=== PATIENT | male | born 1950 | race Caucasian/White ===

== ENCOUNTER 2018-10-26 05:11 | Inpatient (IN) | payer MEDICARE, BC ==
--- NOTE | 2018-10-25 23:08 | PREOPHP ---
DATE OF ADMISSION: 10/26/2018 The patient was originally seen in the office for evaluation of weakness in the upper extremities as well as the lower extremities with unstable gait. He was diagnosed with cervical quadriparesis, cervical myelopathy, cord compression. Patient has failed conservative management as an outpatient b asis. He is having worsening pain, worsening weakness. He is having difficulty with day to day acti vities. He is having difficulty with work, he wants something more definitive to be done. Surgical option was discussed with the patient in great detail. I spent approximately 1 hour going over the d etails of surgery with anterior as well as the posterior approach to cervical decompression. It is r ecommended for the patient to have a cervical 3 to cervical 6 laminectomy with possible fusion and po ssible instrumentation. The procedure was explained to the patient and family in great detail; spent approximately 45 minutes to 1 hour going over the details of the surgery, as well as the complications which include infectio n, bleeding, reoperation, permanent nerve damage, permanent cord injury, stroke complications associa rosalind with anesthesia including but not limited to stroke, heart attack and even . Patient unders tands and wishes to proceed with surgical intervention as soon as possible. PAST MEDICAL HISTORY: Per chart. PAST SURGICAL HISTORY: Per chart. SOCIAL HISTORY: Per chart. ALLERGIES: STATED IN THE CHART. FAMILY HISTORY: Unremarkable except the ones stated in the chart. REVIEW OF SYSTEMS: Additional 10-point review of systems conducted. Pertinent positives as stated i n HPI. Otherwise, unremarkable. Patient also denies any bladder or bowel dysfunction. PHYSICAL EXAMINATION: GENERAL: Awake, alert, oriented, follows commands. HEENT: Unremarkable. PULMONARY: No dyspnea, no tachypnea noted. CARDIOVASCULAR: No JVD, no pedal edema noted. ABDOMEN: Soft without guarding. NEUROLOGIC: He is awake, alert, oriented, follows commands. GCS 15 has weakness in the upper extrem ities, has weakness in the lower extremities upon ambulation. His gait is unstable. Balance is unst able. MRI of the cervical spine shows cervical 3 to cervical 6 severe stenosis, cord compression. IMPRESSION: Cervical cord compression, myelopathy and quadriparesis. RECOMMENDATIONS: To proceed with surgical intervention with cervical 3 to 6 laminectomy with possibl e fusion, possible instrumentation. The procedure was explained to the patient in great detail. Ris ks, benefits, complications were explained extensively. The patient understands without any further questions. He wants to proceed with the surgical intervention as soon as possible. Dictated By: SAIMA WORKMAN/PUJA Conf#: [id number] DID#: [id number]
[~2018-10-26] VITALS: Ht 213.4 cm; Wt 91.6 kg
[2018-10-26] VITALS (57 sets, daily range): BP systolic 101–157; BP diastolic 56–77; PULSE 18–98; RESP 11–30
[2018-10-26] MEDS ORDERED: LACTATED RINGER'S 1,000 ML IV SCH (06:30)
[2018-10-26] MEDS ORDERED: AMLO1CAP3 PO (06:52)
--- NOTE | 2018-10-26 06:52 | PREAC ---
Date/Time of Note Date/Time of Note DATE: 10/26/18 TIME: 06:47 Anesthesia Eval and Record Evaluation Time Pre-Procedure Interview DATE: 10/26/18 TIME: 06:47 Age 68 Sex male NPO: 8 hrs Preoperative diagnosis Cervical Quadriparesis and cervical Myopathy Planned procedure Posterior C3-C6 Laminectomy and Fusion Past Medical History Past Medical History: Includes Cardio: HTN, Dyslipidemia Endo: Other (Hyperuricemia) Neuro: Other (Cerical Quadroparesis, bilateral Weakness of upper extremities) Renal: CKD (elevated Creatinin other marcial stable) Surgery & Anesthesia Issues No known issue Meds Anticoagulation: No Beta Saranya within 24 hr: No Reason Beta Saranya not given: Pt. not on B-Saranya Current Medications Lactated Ringer's 1,000 ml @ 0 mls/hr Q0M IV ; Start 10/26/18 at 06:30 Meds reviewed: Yes Allergies Coded Allergies: No Known Allergy (Unverified , 10/26/18) Allergies Reviewed: Yes Labs/Studies Labs Reviewed: Reviewed by anesthesiologist test: N/A Pre-procedure Exam Last vitals Vital Signs Date Temp Pulse Resp B/P (MAP) Pulse Ox O2 O2 Flow FiO2 Time Delivery Rate 10/26/18 97.0 18 18 117/69 99 Room Air 06:02 (85) Airway: Adequate mouth opening, Adequate thyromental dist Mallampati: Mallampati III Teeth: Normal Lung: Normal Heart: Normal ASA Physical Status ASA physical status: 2 Emergency: None Planned Anesthetic General/MAC: ETT, A Line Pre-operative Attestations Prior to commencing anesthesia and surgery, the patient was re-evaluated, there was verification of: *The patient's identity *The results of appropriate recent lab work and preoperative vital signs *The above evaluation not changing prior to induction *Anesthetic plan, risk benefits, alternative and complications discussed with patient/family; questions answered; patient/family understands, accepts and wishes to proceed. HADLEY ZHANG MD Oct 26, 2018 06:52
[2018-10-26] MEDS ORDERED: FEBU40TA PO (06:53)
[2018-10-26] MEDS ORDERED: CRES20 PO (06:53)
[2018-10-26] MEDS ORDERED: POLYMYXIN/BACITRACIN 1L IRRIG ONE (06:54)
[2018-10-26] MEDS ORDERED: BUPR300T48 PO (06:54)
[2018-10-26] MEDS ORDERED: GELATIN SIZE 100 SPONGE ONE (06:54)
[2018-10-26] MEDS ORDERED: LIDOCAINE 1%/EPI 30 ML INJ ONE (06:54)
[2018-10-26] MEDS ORDERED: FAMO20TA18 PO (06:54)
[2018-10-26] MEDS ORDERED: THROMBIN 5000 UNIT (RECOTHROM) VIAL ONE (06:54)
[2018-10-26] MEDS ORDERED: CEFAZOLIN 1 GM INJ ONE (06:58)
[2018-10-26] MEDS ORDERED: ROCURONIUM 50 MG INJ ONE ×2 (06:58→08:13)
[2018-10-26] MEDS ORDERED: PROPOFOL 20 ML ONE (06:58)
[2018-10-26] MEDS ORDERED: DEXAMETHASONE 4 MG/ML 5 ML INJ ONE (06:59)
[2018-10-26] MEDS ORDERED: METOCLOPRAMIDE 10 MG INJ ONE (06:59)
[2018-10-26] MEDS ORDERED: ONDANSETRON 4 MG INJ ONE (06:59)
[2018-10-26] MEDS ORDERED: MIDAZOLAM 1 MG/ML 2 ML INJ ONE (06:59)
--- NOTE | 2018-10-26 07:21 | HPN ---
Date/Time of Note Date/Time of Note DATE: 10/26/18 TIME: 07:20 Interval H&P Admission Note Pt. seen H&P reviewed: No system changes SAIMA GLOD MD Oct 26, 2018 07:20
[2018-10-26] MEDS ORDERED: SURGIFOAM POWDER 1 GM KIT ONE (07:24)
[2018-10-26] MEDS ORDERED: DIPHENHYDRAMINE 50 MG INJ ONE (07:30)
[2018-10-26] MEDS ORDERED: SUGAMMADEX SODIUM 200 MG/2 ML VIAL IV ONE (09:08)
[2018-10-26] MEDS ORDERED: PHENYLephrine (100 MCG/ML) 10ML SYG ONE (09:12)
[2018-10-26] MEDS ORDERED: EPHEDrine 25 MG/5 ML SYG ONE (09:12)
[2018-10-26] MEDS ORDERED: EPHEDrine 25 MG/5 ML SYG IV PRN ×2 (09:30→10:00)
[2018-10-26] MEDS ORDERED: MEPERIDINE 25 MG INJ IV PRN ×2 (09:30→10:00)
[2018-10-26] MEDS ORDERED: FENTAnyl 50 MCG/ML VIAL IV PRN ×6 (09:30→10:00)
[2018-10-26] MEDS ORDERED: LABETALOL HCL 20MG INJ IV PRN ×2 (09:30→10:00)
[2018-10-26] MEDS ORDERED: METOCLOPRAMIDE 10 MG INJ IV PRN ×2 (09:30→10:00)
[2018-10-26] MEDS ORDERED: HYDROmorphONE 1 MG/5 ML IV SYRINGE IV PRN ×3 (09:30)
[2018-10-26] MEDS ORDERED: ONDANSETRON 4 MG INJ IV PRN ×3 (09:30→10:00)
[2018-10-26] MEDS ORDERED: OXYCODONE/ACETAMINOPHEN (5/325) TAB PO PRN ×2 (09:30)
[2018-10-26] MEDS ORDERED: hydrALAzine 20 MG INJ IV PRN ×2 (09:30→10:00)
[2018-10-26] MEDS ORDERED: DIPHENHYDRAMINE 50 MG INJ IV PRN ×2 (09:30→10:00)
--- NOTE | 2018-10-26 09:38 | OPR ---
Date/Time of Note Date/Time of Note DATE: 10/26/18 TIME: 09:34 Operative Report Procedure Date: Oct 26, 2018 Preoperative Diagnosis CERVICAL STENOSIS WITH CERVICAL QUADRIPARESIS ,AND MYELOPATHY, LEFT C4,5,6 RADICULOPATHY Postoperative Diagnosis SAME Operation/Procedure Performed CERVICAL THREE TO SEVEN LAMINECTOMY WITH LEFT FOUR FIVE FORAMINOTOMY Surgeon see signature line Rigging Up Man FIORELLA FIGUEROA MD Second Rigging Up Man: ARNOLDO AKERS PA-C Anesthesia Type: general Estimated Blood Loss: 50 - 100 ml's Transfusion none Specimen LAMINA Grafts/Implants none Complications none Pt Condition Post Procedure: stable Disposition: PACU Procedure Description SEE DICTATION SAIMA GOLD MD Oct 26, 2018 09:38
[2018-10-26] MEDS ORDERED: LABETALOL HCL 20MG INJ ONE (09:47)
[2018-10-26] MEDS ORDERED: HYDROmorphONE 0.5 MG/0.5 ML SYG IV PRN ×3 (10:00)
[2018-10-26] MEDS ORDERED: morphine 4 MG/ML VIAL IV PRN (10:00)
[2018-10-26] MEDS ORDERED: niCARdipine 50 MG in SOD CHLORIDE 0.9% 480 ML IV SCH (10:00)
--- NOTE | 2018-10-26 10:23 | PAC ---
Date/Time of Note Date/Time of Note DATE: 10/26/18 TIME: 10:23 Post-Anesthesia Notes Post-Anesthesia Note Last documented vital signs Vital Signs Date Temp Pulse Resp B/P (MAP) Pulse Ox O2 O2 Flow FiO2 Time Delivery Rate 10/26/18 97.0 18 18 117/69 99 Room Air 10:22 (85) Activity: WNL Respiratory function: WNL Cardiovascular function: WNL Mental status: Baseline Pain reasonably controlled: Yes Hydration appropriate: Yes Nausea/Vomiting absent: Yes HADLEY ZHANG MD Oct 26, 2018 10:23
[2018-10-26] MEDS: DEXTROSE 5%-LR 1,000 ML IV SCH ×2 (11:04→17:49)
--- NOTE | 2018-10-26 11:04 | CONS ---
Assessment/Plan Assessment/Plan Assessment/Plan (Daily) Med consult dict Post op cx spine surgery with hx HBP, Gout and Elev chol meds resumed except for yandy inhibitor given transient hypotension periop. Will follow Consultation Date/Type/Reason Admit Date/Time Oct 26, 2018 at 05:11 Date/Time of Note DATE: 10/26/18 TIME: 11:02 Past Medical History Home Meds Reported Medications Bupropion Hcl* (Wellbutrin XL*) 300 Mg Tab.sr.24h, 300 MG PO DAILY, TAB.SA 10/26/18 Famotidine* (Famotidine*) 20 Mg Tablet, 20 MG PO BID, #60 TAB 10/26/18 Febuxostat* (Uloric*) 40 Mg Tablet, 40 MG PO DAILY, TAB 10/26/18 Rosuvastatin Calcium* (Crestor*) 20 Mg Tablet, 20 MG PO QHS, #30 TAB 10/26/18 Amlodipine Besylate/Benazepril (Lotrel 5-40 mg Capsule) 1 Each Capsule, 1 EACH PO QPM, CAP 10/26/18 Medications Current Medications Lactated Ringer's 1,000 ml @ 0 mls/hr Q0M IV Last administered on 10/26/18at 06:56; Admin Dose 0 MLS/HR; Start 10/26/18 at 06:30 Hydromorphone HCl (Dilaudid) 0.2 mg ICU RECOVERY PRN IV MILD PAIN LEVEL 1-3; S tart 10/26/18 at 10:00; Stop 10/26/18 at 15:00 Hydromorphone HCl (Dilaudid) 0.4 mg ICU RECOVERY PRN IV MODERATE PAIN LEVEL 4-6; Start 10/26/18 at 10:00; Stop 10/26/18 at 15:00 Hydromorphone HCl (Dilaudid) 0.6 mg ICU RECOVERY PRN IV SEVERE PAIN LEVEL 7-10; Start 10/26/18 at 10:00; Stop 10/26/18 at 15:00 Fentanyl (Sublimaze) 25 mcg ICU RECOVERY PRN IV MILD PAIN LEVEL 1-3; Start 10/26/18 at 10:00; Stop 10/26/18 at 15:00 Fentanyl (Sublimaze) 50 mcg ICU RECOVERY PRN IV MODERATE PAIN LEVEL 4-6; Start 10/26/18 at 10:00; Stop 10/26/18 at 15:00 Fentanyl (Sublimaze) 75 mcg ICU RECOVERY PRN IV SEVERE PAIN LEVEL 7-10; Start 10/26/18 at 10:00; Stop 10/26/18 at 15:00 Ondansetron HCl (Zofran Inj) 4 mg ICU RECOVERY PRN IV NAUSEA/VOMITING; Start 10/26/18 at 10:00; Stop 10/26/18 at 15:00 Metoclopramide HCl (Reglan) 10 mg ICU RECOVERY PRN IV NAUSEA AND/OR VOMITING; Start 10/26/18 at 10:00; Stop 10/26/18 at 15:00 Labetalol HCl (Labetalol) 5 mg ICU RECOVERY PRN IV HIGH BLOOD PRESSURE; Start 10/26/18 at 10:00; Stop 10/26/18 at 15:00 Hydralazine HCl (Apresoline) 5 mg ICU RECOVERY PRN IV HIGH BLOOD PRESSURE; Start 10/26/18 at 10:00; Stop 10/26/18 at 15:00 Meperidine HCl (Demerol) 25 mg ICU RECOVERY PRN IV .RIGORS; Start 10/26/18 at 10:00; Stop 10/26/18 at 15:00 Diphenhydramine HCl (Benadryl) 25 mg ICU RECOVERY PRN IV .PRURITUS; Start 10/26/18 at 10:00; Stop 10/26/18 at 15:00 Dextrose/Lactated Ringer's 1,000 ml @ 125 mls/hr Q8H IV ; Start 10/26/18 at 10:00 Dexamethasone (Decadron) 4 mg Q6 IV ; Start 10/26/18 at 12:00; Stop 10/27/18 at 12:00 Cefazolin Sodium 50 ml @ 100 mls/hr Q8 IVPB ; Start 10/26/18 at 14:00; Stop 10/28/18 at 14:00 Nicardipine HCl 50 mg/Sodium Chloride 500 ml @ 50 mls/hr TITRATE IV ; Start 10/26/18 at 10:00 Morphine Sulfate (morphine) 3 mg Q3H PRN IV SEVERE PAIN LEVEL 7-10; Start 10/26/18 at 10:00 Ondansetron HCl (Zofran Inj) 4 mg Q6H PRN IV NAUSEA AND/OR VOMITING; Start 10/26/18 at 10:00 Acetaminophen/ Hydrocodone Bitart ([place] (7.5-325)) 1 tab Q4H PRN PO MODERATE PAIN LEVEL 4-6; Start 10/26/18 at 10:30 Bupropion HCl (Wellbutrin Xl) 300 mg DAILY PO ; Start 10/27/18 at 09:00 Famotidine (Pepcid) 20 mg BID PO ; Start 10/26/18 at 21:00 Febuxostat (Uloric) 40 mg DAILY PO ; Start 10/27/18 at 09:00 Miscellaneous Information 1 each QPM PO ; Start 10/26/18 at 21:00; Status UNV Miscellaneous Information 20 mg QHS PO ; Start 10/26/18 at 21:00; Status UNV Allergies: Coded Allergies: No Known Allergy (Unverified , 10/26/18) Social History Smoking Status: Never smoker Exam/Review of Systems Exam Vitals Vital Signs Date Temp Pulse Resp B/P (MAP) Pulse Ox O2 O2 Flow FiO2 Time Delivery Rate 10/26/18 98.4 10:14 10/26/18 18 18 117/69 99 Room Air 06:02 (85) Medications Medication Current Medications Lactated Ringer's 1,000 ml @ 0 mls/hr Q0M IV Last administered on 10/26/18at 06:56; Admin Dose 0 MLS/HR; Start 10/26/18 at 06:30 Hydromorphone HCl (Dilaudid) 0.2 mg ICU RECOVERY PRN IV MILD PAIN LEVEL 1-3; Start 10/26/18 at 10:00; Stop 10/26/18 at 15:00 Hydromorphone HCl (Dilaudid) 0.4 mg ICU RECOVERY PRN IV MODERATE PAIN LEVEL 4-6; Start 10/26/18 at 10:00; Stop 10/26/18 at 15:00 Hydromorphone HCl (Dilaudid) 0.6 mg ICU RECOVERY PRN IV SEVERE PAIN LEVEL 7-10; Start 10/26/18 at 10:00; Stop 10/26/18 at 15:00 Fentanyl (Sublimaze) 25 mcg ICU RECOVERY PRN IV MILD PAIN LEVEL 1-3; Start 10/26/18 at 10:00; Stop 10/26/18 at 15:00 Fentanyl (Sublimaze) 50 mcg ICU RECOVERY PRN IV MODERATE PAIN LEVEL 4-6; Start 10/26/18 at 10:00; Stop 10/26/18 at 15:00 Fentanyl (Sublimaze) 75 mcg ICU RECOVERY PRN IV SEVERE PAIN LEVEL 7-10; Start 10/26/18 at 10:00; Stop 10/26/18 at 15:00 Ondansetron HCl (Zofran Inj) 4 mg ICU RECOVERY PRN IV NAUSEA/VOMITING; Start 10/26/18 at 10:00; Stop 10/26/18 at 15:00 Metoclopramide HCl (Reglan) 10 mg ICU RECOVERY PRN IV NAUSEA AND/OR VOMITING; Start 10/26/18 at 10:00; Stop 10/26/18 at 15:00 Labetalol HCl (Labetalol) 5 mg ICU RECOVERY PRN IV HIGH BLOOD PRESSURE; Start 10/26/18 at 10:00; Stop 10/26/18 at 15:00 Hydralazine HCl (Apresoline) 5 mg ICU RECOVERY PRN IV HIGH BLOOD PRESSURE; Start 10/26/18 at 10:00; Stop 10/26/18 at 15:00 Meperidine HCl (Demerol) 25 mg ICU RECOVERY PRN IV .RIGORS; Start 10/26/18 at 10:00; Stop 10/26/18 at 15:00 Diphenhydramine HCl (Benadryl) 25 mg ICU RECOVERY PRN IV .PRURITUS; Start at 10:00; Stop 10/26/18 at 15:00 Dextrose/Lactated Ringer's 1,000 ml @ 125 mls/hr Q8H IV ; Start 10/26/18 at 10:00 Dexamethasone (Decadron) 4 mg Q6 IV ; Start 10/26/18 at 12:00; Stop 10/27/18 at 12:00 Cefazolin Sodium 50 ml @ 100 mls/hr Q8 IVPB ; Start 10/26/18 at 14:00; Stop 10/28/18 at 14:00 Nicardipine HCl 50 mg/Sodium Chloride 500 ml @ 50 mls/hr TITRATE IV ; Start 10/26/18 at 10:00 Morphine Sulfate (morphine) 3 mg Q3H PRN IV SEVERE PAIN LEVEL 7-10; Start 10/26/18 at 10:00 Ondansetron HCl (Zofran Inj) 4 mg Q6H PRN IV NAUSEA AND/OR VOMITING; Start 10/26/18 at 10:00 Acetaminophen/ Hydrocodone Bitart ([place] (7.5-325)) 1 tab Q4H PRN PO MODERATE PAIN LEVEL 4-6; Start 10/26/18 at 10:30 Bupropion HCl (Wellbutrin Xl) 300 mg DAILY PO ; Start 10/27/18 at 09:00 Famotidine (Pepcid) 20 mg BID PO ; Start 10/26/18 at 21:00 Febuxostat (Uloric) 40 mg DAILY PO ; Start 10/27/18 at 09:00 Miscellaneous Information 1 each QPM PO ; Start 10/26/18 at 21:00; Status UNV Miscellaneous Information 20 mg QHS PO ; Start 10/26/18 at 21:00; Status UNV VANDANA KESSLER MD Oct 26, 2018 11:04
--- NOTE | 2018-10-26 11:34 | CONS ---
DATE OF ADMISSION: 10/26/2018 DATE OF CONSULTATION: 10/26/2018 TYPE OF CONSULTATION: SURGERY Thank you very much for allowing me to evaluate this 68-year-old male who just underwent cervical spi ne surgery. HISTORICAL EVENTS: As you well know, this patient has had progressive weakness and numbness involvin g his upper extremities and diffuse numbness and tingling that have been problematic for several reina hs. He has also noted some difficulty with balance and ultimately obtained an MRI of the cervical sp ine that revealed severe C5-C6 stenosis with diffuse disk injury thought optimal for surgical interve ntion. It is because of the latter that he underwent surgery today. Reviewing his operative record revealed transient hypotension. He presently is comfortable noting modest neck pain, but without cou gh, wheezing, shortness of breath, nausea, vomiting, abdominal or chest pain. PAST MEDICAL HISTORY: Includes: 1. Hypertension. 2. Gout. 3. Hyperlipidemia. 4. Esophagitis. 5. History of Achilles tendon repair (left). 6. Right elbow surgery. 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 He does smoke cigars. Does dri nk alcohol. FAMILY HISTORY: Positive for diabetes, heart disease, renal cancer and hypertension, hypogonadism us ing Depo testosterone. MEDICATIONS: Prior to admission: 1. Crestor 20 mg per day. 2. Amlodipine/benazepril 5/40. 3. Uloric 40 mg per day. PHYSICAL EXAMINATION: GENERAL: Comfortable appearing male in no acute distress. VITAL SIGNS: BP 109/72, pulse was 60, respirations were 18. He was afebrile. NECK: Soft collar in place. LUNGS: Clear. HEART: Rhythm regular, no murmur. No third or fourth sound. ABDOMEN: Nontender. Liver and spleen were not palpable. No mass or tenderness was noted. EXTREMITIES: No edema. Calves nontender. NEUROLOGIC: No lateralizing motor weakness. He was able to move his feet bilaterally and hands. IMPRESSION: 1. Stable postoperative cervical laminectomy. 2. History of hypertension. BP meds will be resumed. 3. Hyperlipidemia, to continue statin. 4. History of gout to continue Uloric. PLAN: We will follow daily and observe for signs and symptoms of thromboembolic disease. Dictated By: VANDANA YOU/PUJA Conf#: [id number] DID#: [id number] CC: SAIMA GOLD MD; FIORELLA FIGUEROA MD;*End*
[2018-10-26] MEDS: DEXAMETHASONE 4 MG/ML 1 ML INJ IV SCH ×3 (12:50→23:43)
[2018-10-26] MEDS: CEFAZOLIN 1 GM/50 ML (PMX) 50 ML IVPB SCH ×2 (14:35→21:55)
[2018-10-26] MEDS: HYDROCODONE/APAP (7.5/325) TAB PO PRN (16:26)
[2018-10-26] MEDS ORDERED: LISINOPRIL 20 MG TAB PO SCH (17:00)
[2018-10-26] MEDS: AMLODIPINE 5 MG TAB PO SCH (17:15)
[2018-10-26] MEDS: HYDROmorphONE 1 MG/ML SYG IV PRN ×2 (17:45→21:56)
[2018-10-26] MEDS: BENAZEPRIL 40 MG TAB PO SCH (18:29)
[2018-10-26] MEDS: FAMOTIDINE 20 MG TAB PO SCH (21:00)
[2018-10-26] MEDS ORDERED: NON-FORMULARY/PATIENT OWN MED (Amlodipine Besylate/Benazepril (Lotrel 5-40 mg Capsule) 1 E PO SCH (21:00)
[2018-10-26] MEDS ORDERED: AMLODIPINE 5 MG TAB PO SCH (21:00)
[2018-10-26] MEDS: ATORVASTATIN 40 MG TAB PO SCH (21:00)
[2018-10-27] VITALS (17 sets, daily range): BP systolic 101–125; BP diastolic 49–72; PULSE 80–97; RESP 11–30
[2018-10-27] MEDS: HYDROmorphONE 1 MG/ML SYG IV PRN ×4 (01:45→17:56)
[2018-10-27] MEDS: DEXTROSE 5%-LR 1,000 ML IV SCH ×3 (01:45→17:57)
[2018-10-27] MEDS: DEXAMETHASONE 4 MG/ML 1 ML INJ IV SCH ×3 (06:02→20:52)
[2018-10-27] MEDS: CEFAZOLIN 1 GM/50 ML (PMX) 50 ML IVPB SCH ×3 (06:03→22:08)
--- NOTE | 2018-10-27 08:17 | CONS ---
Assessment/Plan Assessment/Plan Assessment/Plan (Daily) 1. Post op cx spine surgery, with inc dysesthesia left arm 2. CHO has inc, related to Decadron, rev with pt, will cover with ac sq insulin 3. Renal fx has improved 4. BP is controlled 5. Elev wbc likely from steroids, ua and cult ordered 6. Can transfer to ortho floor after seen by NS and ortho. Consultation Date/Type/Reason Admit Date/Time Oct 26, 2018 at 05:11 Initial Consult Date Date/Time of Note DATE: 10/27/18 TIME: 08:13 Detailed Summary ENT: other (uvula is hursts, mod neck discomfort) Respiratory: No cough, No shortness of breath Cardiovascular: No chest pain Gastrointestinal: no complaints Genitourinary: other (mendoza in place) Neurologic: other (left hand is burning) Exam/Review of Systems Exam Vitals Vital Signs Date Temp Pulse Resp B/P (MAP) Pulse Ox O2 O2 Flow FiO2 Time Delivery Rate 10/27/18 90 26 115/49 94 Room Air 06:00 (71) 10/27/18 98.9 04:00 10/26/18 6.0 12:00 Intake and Output 10/26/18 10/26/18 10/27/18 1515:00 23:00 07:00 IntakeIntake Total 3650 ml 1200 ml 750 ml OutputOutput Total 770 ml 505 ml 475 ml BalanceBalance 2880 ml 695 ml 275 ml Neck: jvd, other (collar in place, left side uvula skin is denuded) Respiratory: clear to auscultation Cardiovascular: regular rate and rhythm Gastrointestinal: soft Extremities: No calf tenderness, No edema, No pitting pedal edema Results Result Diagram: 10/27/18 0500 10/27/18 0500 Results 24hrs Laboratory Tests Test 10/26/18 14:21 10/27/18 05:00 10/27/18 05:19 White Blood Count 9.0 16.0 #H Red Blood Count 4.29 L 4.04 L Hemoglobin 12.9 L 12.5 L Hematocrit 38.2 L 35.7 L Mean Corpuscular Volume 89.0 88.4 Mean Corpuscular Hemoglobin 30.1 30.9 Mean Corpuscular 33.8 35.0 Hemoglobin Concent Red Cell Distribution Width 12.3 12.0 Platelet Count 195 200 Mean Platelet Volume 10.2 10.4 Immature Granulocytes % 0.400 0.400 Neutrophils % 93.9 H 93.2 H Lymphocytes % 5.0 L 4.0 L Monocytes % 0.6 2.3 Eosinophils % 0.0 0.0 Basophils % 0.1 0.1 Nucleated Red Blood Cells % 0.0 0.0 Immature Granulocytes # 0.040 H 0.070 H Neutrophils # 8.4 H 14.9 H Lymphocytes # 0.5 L 0.6 L Monocytes # 0.1 L 0.4 Eosinophils # 0.0 0.0 Basophils # 0.0 0.0 Nucleated Red Blood Cells # 0.0 0.0 Sodium Level 135 136 Potassium Level 4.8 4.7 Chloride Level 104 105 Carbon Dioxide Level 23 24 Anion Gap 8 7 Blood Urea Nitrogen 24 H 21 H Creatinine 1.47 H 1.18 Est Glomerular Filtrat 48 L > 60 Rate mL/min Glucose Level 224 H 193 Calcium Level 8.3 L 8.1 L Hemoglobin A1c 5.5 Phosphorus Level 3.6 Magnesium Level 1.7 Lab Scanned Report REFERENCE LAB Medications Medication Current Medications Lactated Ringer's 1,000 ml @ 0 mls/hr Q0M IV Last administered on 10/26/18at 06:56; Admin Dose 0 MLS/HR; Start 10/26/18 at 06:30 Dextrose/Lactated Ringer's 1,000 ml @ 125 mls/hr Q8H IV Last administered on 10/27/18at 01:45; Admin Dose 125 MLS/HR; Start 10/26/18 at 10:00 Dexamethasone (Decadron) 4 mg Q6 IV Last administered on 10/27/18at 06:02; Admin Dose 4 MG; Start 10/26/18 at 12:00; Stop 10/27/18 at 12:00 Cefazolin Sodium 50 ml @ 100 mls/hr Q8 IVPB Last administered on 10/27/18at 06:03; Admin Dose 100 MLS/HR; Start 10/26/18 at 14:00; Stop 10/28/18 at 14:00 Nicardipine HCl 50 mg/Sodium Chloride 500 ml @ 50 mls/hr TITRATE IV ; Start 10/26/18 at 10:00 Ondansetron HCl (Zofran Inj) 4 mg Q6H PRN IV NAUSEA AND/OR VOMITING; Start 10/26/18 at 10:00 Acetaminophen/ Hydrocodone Bitart ([place] (7.5-325)) 1 tab Q4H PRN PO MODERATE PAIN LEVEL 4-6 Last administered on 10/26/18at 16:26; Admin Dose 1 TAB; Start 10/26/18 at 10:30 Bupropion HCl (Wellbutrin Xl) 300 mg DAILY PO ; Start 10/27/18 at 09:00 Famotidine (Pepcid) 20 mg BID PO ; Start 10/26/18 at 21:00 Febuxostat (Uloric) 40 mg DAILY PO ; Start 10/27/18 at 09:00 Atorvastatin Calcium (Lipitor) 40 mg DAILY@21 PO ; Start 10/26/18 at 21:00 Amlodipine Besylate (Norvasc) 5 mg DAILY PO Last administered on 10/26/18at 17:15; Admin Dose 5 MG; Start 10/26/18 at 17:00 Benazepril HCl (Lotensin) 40 mg DAILY PO Last administered on 10/26/18at 18:29; Admin Dose 40 MG; Start 10/26/18 at 17:00 Hydromorphone HCl (Dilaudid) 1 mg Q3H PRN IV MOD TO SEVERE PAIN Last administered on 10/27/18at 07:57; Admin Dose 1 MG; Start 10/26/18 at 18:00 Miscellaneous Information (* Miscellaneous Pharmacy Order) Discontinue current oral sulfonylur... ONCE ONCE XX ; Start 10/27/18 at 08:30; Stop 10/27/18 at 08:31; Status UNV Diagnostic Test (Pha) (Accu-Chek) 1 ea XX ; Start 10/28/18 at 02:00; Status UNV Miscellaneous Information (* Miscellaneous Pharmacy Order) HYPOGLYCEMIA PROTOCOL w... ONCE ONCE XX ; Start 10/27/18 at 08:30; Stop 10/27/18 at 08:31; Status UNV Insulin Aspart (Novolog Insulin Pen) NOVOLOG *MILD* ALGORITHM AC MEALS SC ; Start 10/27/18 at 11:00; Status UNV Miscellaneous Information (* Miscellaneous Pharmacy Order) Discontinue all previ... ONCE ONCE XX ; Start 10/27/18 at 08:30; Stop 10/27/18 at 08:31; Status UNV Magnesium Sulfate 50 ml @ 25 mls/hr ONCE ONCE IVPB ; Start 10/27/18 at 08:30; Stop 10/27/18 at 10:29 VANDANA KESSLER MD Oct 27, 2018 08:17
[2018-10-27] MEDS ORDERED: GLUCOSE GEL 15 GRAM TUBE PO PRN ×2 (08:30)
[2018-10-27] MEDS ORDERED: GLUCOSE GEL 15 GRAM TUBE BUCCAL PRN (08:30)
[2018-10-27] MEDS ORDERED: GLUCAGON 1 MG INJ IM PRN (08:30)
[2018-10-27] MEDS ORDERED: DEXTROSE 50% 50 ML SYRINGE IV PRN ×2 (08:30)
[2018-10-27] MEDS ORDERED: MAGNESIUM SULFATE 2 GM/50 ML 50 ML IVPB ONE (08:30)
[2018-10-27] MEDS: FAMOTIDINE 20 MG TAB PO SCH ×2 (09:16→20:52)
[2018-10-27] MEDS: AMLODIPINE 5 MG TAB PO SCH (09:17)
[2018-10-27] MEDS: FEBUXOSTAT 40 MG TABLET PO SCH (09:17)
[2018-10-27] MEDS: BUPROPION (XL) 150 MG TAB PO SCH (09:17)
[2018-10-27] MEDS: BENAZEPRIL 40 MG TAB PO SCH (09:17)
[2018-10-27] MEDS: INSULIN ASPART [NOVOLOG] 3 ML PEN SC SCH ×2 (12:42→17:25)
[2018-10-27] MEDS ORDERED: PANTOPRAZOLE 40 MG INJ IV SCH (15:30)
[2018-10-27] MEDS ORDERED: METOCLOPRAMIDE 10 MG INJ IV SCH (16:00)
[2018-10-27] MEDS: HYDROCODONE/APAP (7.5/325) TAB PO PRN (20:54)
[2018-10-27] MEDS: ATORVASTATIN 40 MG TAB PO SCH (21:00)
[2018-10-28] MEDS: DEXAMETHASONE 4 MG/ML 1 ML INJ IV SCH ×4 (01:03→17:28)
[2018-10-28] MEDS: ZOLPIDEM 5 MG TAB PO PRN ×2 (01:09→23:31)
[2018-10-28] MEDS: DEXTROSE 5%-LR 1,000 ML IV SCH (01:13)
[2018-10-28 01:31] VITALS: BP 118/58; PULSE 83; RESP 18
[2018-10-28] MEDS: ACCU-CHEK XX SCH (02:23)
[2018-10-28] MEDS: CEFAZOLIN 1 GM/50 ML (PMX) 50 ML IVPB SCH ×2 (05:39→14:18)
[2018-10-28] MEDS: HYDROCODONE/APAP (7.5/325) TAB PO PRN ×3 (05:53→17:27)
[2018-10-28 07:49] VITALS: BP 129/65; PULSE 78; RESP 20
[2018-10-28] MEDS: FEBUXOSTAT 40 MG TABLET PO SCH (08:24)
[2018-10-28] MEDS: BUPROPION (XL) 150 MG TAB PO SCH (08:24)
[2018-10-28] MEDS: AMLODIPINE 5 MG TAB PO SCH (08:25)
[2018-10-28] MEDS: FAMOTIDINE 20 MG TAB PO SCH ×2 (08:25→20:50)
[2018-10-28] MEDS: BENAZEPRIL 40 MG TAB PO SCH (08:25)
--- NOTE | 2018-10-28 08:29 | CONS ---
Assessment/Plan Assessment/Plan Assessment/Plan (Daily) 1. Post op cx spine surgery with post op right arm weakness and dysesthesia 2. 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 CHO still sl inc, will inc insulin to q6 4. BP controlled Consultation Date/Type/Reason Admit Date/Time Oct 26, 2018 at 05:11 Initial Consult Date Date/Time of Note DATE: 10/28/18 TIME: 08:26 Detailed Summary Respiratory: No cough, No pleuritic pain, No shortness of breath Cardiovascular: No chest pain, No orthopenea Gastrointestinal: other (mild hiccups); No pain, No vomiting Genitourinary: other (mendoza in place) Musculoskeletal: other (neck pain mild-mod) Neurologic: other (right arm weaker then left and tingling in feet some pain left arm ) Exam/Review of Systems Exam Vitals Vital Signs Date Temp Pulse Resp B/P (MAP) Pulse Ox O2 O2 Flow FiO2 Time Delivery Rate 10/28/18 98.4 78 20 129/65 92 Room Air 07:49 (86) 10/28/18 2.0 01:31 Intake and Output 10/27/18 10/27/18 10/28/18 1515:00 23:00 07:00 IntakeIntake Total 50 ml 50 ml 1650 ml OutputOutput Total 280 ml 65 ml 50 ml BalanceBalance -230 ml -15 ml 1600 ml Neck: No jvd Respiratory: clear to auscultation, crackles/rales Gastrointestinal: soft Extremities: No edema, No tenderness Neurological: other (right upper extrem is weak) Results Result Diagram: 10/28/18 0439 10/28/18 0438 Results 24hrs Laboratory Tests Test 10/27/18 10:00 10/27/18 12:25 10/27/18 17:55 10/28/18 01:05 Urine Color YELLOW Urine Clarity CLEAR Urine pH 5.0 Urine Specific 1.023 [place] Urine Ketones NEGATIVE Urine Nitrite NEGATIVE Urine Bilirubin NEGATIVE Urine Urobilinogen NEGATIVE Urine Leukocyte NEGATIVE Esterase Urine Microscopic 32 H RBC Urine Microscopic 5 WBC Urine Mucus MODERATE Urine Hemoglobin 2+ H Urine Glucose NEGATIVE Urine Total Protein NEGATIVE Bedside Glucose 150 136 168 Test 10/28/18 04:38 10/28/18 04:39 Sodium Level 134 L Potassium Level 4.7 Chloride Level 103 Carbon Dioxide Level 25 Anion Gap 6 Blood Urea Nitrogen 21 H Creatinine 1.18 Est Glomerular > 60 Filtrat Rate mL/min Glucose Level 180 Calcium Level 7.9 L Phosphorus Level 3.1 Magnesium Level 2.1 White Blood Count 14.0 H Red Blood Count 4.01 L Hemoglobin 12.3 L Hematocrit 36.1 L Mean Corpuscular 90.0 Volume Mean Corpuscular 30.7 Hemoglobin Mean Corpuscular 34.1 Hemoglobin Concent Red Cell 12.5 Distribution Width Platelet Count 190 Mean Platelet Volume 10.2 Immature 0.400 Granulocytes % Neutrophils % 93.5 H Lymphocytes % 3.6 L Monocytes % 2.5 Eosinophils % 0.0 Basophils % 0.0 Nucleated Red Blood 0.0 Cells % Immature 0.060 H Granulocytes # Neutrophils # 13.1 H Lymphocytes # 0.5 L Monocytes # 0.4 Eosinophils # 0.0 Basophils # 0.0 Nucleated Red Blood 0.0 Cells # Medications Medication Current Medications Dextrose/Lactated Ringer's 1,000 ml @ 125 mls/hr Q8H IV Last administered on 10/28/18at 01:13; Admin Dose 125 MLS/HR; Start 10/26/18 at 10:00 Cefazolin Sodium 50 ml @ 100 mls/hr Q8 IVPB Last administered on 10/28/18at 05:39; Admin Dose 100 MLS/HR; Start 10/26/18 at 14:00; Stop 10/28/18 at 14:00 Ondansetron HCl (Zofran Inj) 4 mg Q6H PRN IV NAUSEA AND/OR VOMITING; Start 10/26/18 at 10:00 Acetaminophen/ Hydrocodone Bitart ([place] (7.5-325)) 1 tab Q4H PRN PO MODERATE PAIN LEVEL 4-6 Last administered on 10/28/18at 05:53; Admin Dose 1 TAB; Start 10/26/18 at 10:30 Bupropion HCl (Wellbutrin Xl) 300 mg DAILY PO Last administered on 10/27/18at 09:17; Admin Dose 300 MG; Start 10/27/18 at 09:00 Famotidine (Pepcid) 20 mg BID PO Last administered on 10/27/18at 20:52; Admin Dose 20 MG; Start 10/26/18 at 21:00 Febuxostat (Uloric) 40 mg DAILY PO Last administered on 10/27/18at 09:17; Admin Dose 40 MG; Start 10/27/18 at 09:00 Atorvastatin Calcium (Lipitor) 40 mg DAILY@21 PO ; Start 10/26/18 at 21:00 Amlodipine Besylate (Norvasc) 5 mg DAILY PO Last administered on 10/27/18at 09:17; Admin Dose 5 MG; Start 10/26/18 at 17:00 Benazepril HCl (Lotensin) 40 mg DAILY PO Last administered on 10/27/18at 09:17; Admin Dose 40 MG; Start 10/26/18 at 17:00 Hydromorphone HCl (Dilaudid) 1 mg Q3H PRN IV MOD TO SEVERE PAIN Last administered on 10/27/18at 17:56; Admin Dose 1 MG; Start 10/26/18 at 18:00 Diagnostic Test (Pha) (Accu-Chek) 1 ea 02 XX Last administered on 10/28/18at 02:23; Admin Dose 1 EA; Start 10/28/18 at 02:00 Insulin Aspart (Novolog Insulin Pen) NOVOLOG *MILD* ALGORITHM AC MEALS SC Last administered on 10/27/18at 12:42; Admin Dose 1 UNIT; Start 10/27/18 at 11:00 Miscellaneous Information 1 ea NOTE XX ; Start 10/27/18 at 08:30 Glucose (Glutose) 15 gm Q15M PRN PO DECREASED GLUCOSE; Start 10/27/18 at 08:30 Glucose (Glutose) 22.5 gm Q15M PRN PO DECREASED GLUCOSE; Start 10/27/18 at 08:30 Dextrose (D50w Syringe) 25 ml Q15M PRN IV DECREASED GLUCOSE; Start 10/27/18 at 08:30 Dextrose (D50w Syringe) 50 ml Q15M PRN IV DECREASED GLUCOSE; Start 10/27/18 at 08:30 Glucagon (Glucagen) 1 mg Q15M PRN IM DECREASED GLUCOSE; Start 10/27/18 at 08:30 Glucose (Glutose) 15 gm Q15M PRN BUCCAL DECREASED GLUCOSE; Start 10/27/18 at 08:30 Zolpidem Tartrate (Ambien) 5 mg HS PRN PO INSOMNIA Last administered on 10/28/18at 01:09; Admin Dose 5 MG; Start 10/27/18 at 14:00 Dexamethasone (Decadron) 4 mg Q6 IV Last administered on 10/28/18at 05:40; Admin Dose 4 MG; Start 10/27/18 at 19:00; Stop 10/30/18 at 12:00 VANDANA KESSLER MD Oct 28, 2018 08:29
[2018-10-28] MEDS ORDERED: SOD CHLORIDE 0.9% 1,000 ML IV SCH (08:30)
[2018-10-28] MEDS: INSULIN ASPART [NOVOLOG] 3 ML PEN SC SCH ×3 (12:49→21:00)
[2018-10-28 14:45] VITALS: BP 125/63; PULSE 86; RESP 18
[2018-10-28] MEDS ORDERED: CYCLOBENZAPRINE 10 MG TAB PO PRN (18:30)
[2018-10-28] MEDS ORDERED: CHLORPROMAZINE 10 MG TAB PO PRN (19:30)
[2018-10-28 20:13] VITALS: BP 148/75; PULSE 82; RESP 20
[2018-10-28] MEDS ORDERED: BACLOFEN 10 MG TAB PO SCH (20:30)
--- NOTE | 2018-10-28 20:47 | CONS ---
Assessment/Plan Assessment/Plan Assessment/Plan (Daily) pt seen and examined with Dr ovalle approx 1130 hrs awake alert follows 3+/5 strength in upper extremities 3+/5 strength in lower extremities cervical mri shows complete cervical cord decompression with gliosis in the canal and signal changes today pt doing better, able to ambulate with pt using fww wound looks ok, dry, dressing was changed cont with decadron another 48hrs with tapering dose Consultation Date/Type/Reason Admit Date/Time Oct 26, 2018 at 05:11 Initial Consult Date Date/Time of Note DATE: 10/28/18 TIME: 20:45 Exam/Review of Systems Exam Vitals Vital Signs Date Temp Pulse Resp B/P (MAP) Pulse Ox O2 O2 Flow FiO2 Time Delivery Rate 10/28/18 97.8 20 148/75 96 Room Air 20:13 (99) 10/28/18 86 14:45 10/28/18 2.0 01:31 Intake and Output 10/27/18 10/27/18 10/28/18 1414:59 22:59 06:59 IntakeIntake Total 50 ml 50 ml 1650 ml OutputOutput Total 280 ml 65 ml 50 ml BalanceBalance -230 ml -15 ml 1600 ml Results Result Diagram: 10/28/18 0439 10/28/18 0438 Results 24hrs Laboratory Tests Test 10/28/18 01:05 10/28/18 04:38 10/28/18 04:39 10/28/18 08:28 Bedside Glucose 168 158 Sodium Level 134 L Potassium Level 4.7 Chloride Level 103 Carbon Dioxide Level 25 Anion Gap 6 Blood Urea Nitrogen 21 H Creatinine 1.18 Est Glomerular > 60 Filtrat Rate mL/min Glucose Level 180 Calcium Level 7.9 L Phosphorus Level 3.1 Magnesium Level 2.1 White Blood Count 14.0 H Red Blood Count 4.01 L Hemoglobin 12.3 L Hematocrit 36.1 L Mean Corpuscular 90.0 Volume Mean Corpuscular 30.7 Hemoglobin Mean Corpuscular 34.1 Hemoglobin Concent Red Cell 12.5 Distribution Width Platelet Count 190 Mean Platelet Volume 10.2 Immature 0.400 Granulocytes % Neutrophils % 93.5 H Lymphocytes % 3.6 L Monocytes % 2.5 Eosinophils % 0.0 Basophils % 0.0 Nucleated Red Blood 0.0 Cells % Immature 0.060 H Granulocytes # Neutrophils # 13.1 H Lymphocytes # 0.5 L Monocytes # 0.4 Eosinophils # 0.0 Basophils # 0.0 Nucleated Red Blood 0.0 Cells # Test 10/28/18 12:48 10/28/18 17:28 Bedside Glucose 127 139 Medications Medication Current Medications Ondansetron HCl (Zofran Inj) 4 mg Q6H PRN IV NAUSEA AND/OR VOMITING; Start 10/26/18 at 10:00 Acetaminophen/ Hydrocodone Bitart ([place] (7.5-325)) 1 tab Q4H PRN PO MODERATE PAIN LEVEL 4-6 Last administered on 10/28/18at 17:27; Admin Dose 1 TAB; Start 10/26/18 at 10:30 Bupropion HCl (Wellbutrin Xl) 300 mg DAILY PO Last administered on 10/28/18at 08:24; Admin Dose 300 MG; Start 10/27/18 at 09:00 Famotidine (Pepcid) 20 mg BID PO Last administered on 10/28/18at 08:25; Admin Dose 20 MG; Start 10/26/18 at 21:00 Febuxostat (Uloric) 40 mg DAILY PO Last administered on 10/28/18at 08:24; Admin Dose 40 MG; Start 10/27/18 at 09:00 Atorvastatin Calcium (Lipitor) 40 mg DAILY@21 PO ; Start 10/26/18 at 21:00 Amlodipine Besylate (Norvasc) 5 mg DAILY PO Last administered on 10/28/18at 08:25; Admin Dose 5 MG; Start 10/26/18 at 17:00 Benazepril HCl (Lotensin) 40 mg DAILY PO Last administered on 10/28/18at 08:25; Admin Dose 40 MG; Start 10/26/18 at 17:00 Hydromorphone HCl (Dilaudid) 1 mg Q3H PRN IV MOD TO SEVERE PAIN Last administered on 10/27/18at 17:56; Admin Dose 1 MG; Start 10/26/18 at 18:00 Diagnostic Test (Pha) (Accu-Chek) 1 ea 02 XX Last administered on 10/28/18at 02:23; Admin Dose 1 EA; Start 10/28/18 at 02:00 Miscellaneous Information 1 ea NOTE XX ; Start 10/27/18 at 08:30 Glucose (Glutose) 15 gm Q15M PRN PO DECREASED GLUCOSE; Start 10/27/18 at 08:30 Glucose (Glutose) 22.5 gm Q15M PRN PO DECREASED GLUCOSE; Start 10/27/18 at 08:30 Dextrose (D50w Syringe) 25 ml Q15M PRN IV DECREASED GLUCOSE; Start 10/27/18 at 08:30 Dextrose (D50w Syringe) 50 ml Q15M PRN IV DECREASED GLUCOSE; Start 10/27/18 at 08:30 Glucagon (Glucagen) 1 mg Q15M PRN IM DECREASED GLUCOSE; Start 10/27/18 at 08:30 Glucose (Glutose) 15 gm Q15M PRN BUCCAL DECREASED GLUCOSE; Start 10/27/18 at 08:30 Zolpidem Tartrate (Ambien) 5 mg HS PRN PO INSOMNIA Last administered on 10/28/18at 01:09; Admin Dose 5 MG; Start 10/27/18 at 14:00 Insulin Aspart (Novolog Insulin Pen) NOVOLOG *MILD* ALGORITHM AC MEALS AND BEDTIME SC ; Start 10/28/18 at 11:10 Sodium Chloride 1,000 ml @ 30 mls/hr Q24H IV Last administered on 10/28/18at 10 :46; Admin Dose 30 MLS/HR; Start 10/28/18 at 08:30 Tamsulosin HCl (Flomax) 0.4 mg HS PO ; Start 10/28/18 at 21:00 Cyclobenzaprine HCl (Flexeril) 10 mg Q8H PRN PO MUSCLE SPASMS; Start 10/28/18 at 18:30 Baclofen (Lioresal) 5 mg TID PO Last administered on 10/28/18at 20:01; Admin Dose 5 MG; Start 10/28/18 at 20:30 Dexamethasone (Decadron) 4 mg BID PO ; Start 10/28/18 at 21:00 ARNOLDO AKERS PA-C Oct 28, 2018 20:47
[2018-10-28] MEDS: TAMSULOSIN (SR) 0.4 MG CAP PO SCH (20:50)
[2018-10-28] MEDS: ATORVASTATIN 40 MG TAB PO SCH (21:00)
[2018-10-28] MEDS: DEXAMETHASONE 4 MG TAB PO SCH (23:31)
[2018-10-28 23:50] VITALS: BP 145/70; PULSE 80; RESP 17
--- NOTE | 2018-10-29 01:28 | CONS ---
DATE OF ADMISSION: 10/26/2018 DATE OF CONSULTATION: The patient was seen and examined with Dr. Albright approximately at 1200 hours. The patient is posto p day #1. He is awake. He is alert. He is following commands. On examination, he has good strengt h in his deltoids, biceps, triceps, but has weakness in the wrist extensors, flexors, intrinsic and e xtrinsic ____ muscles. Lower extremity examination moves both sides, but overall strength is about 3 /5 bilaterally in the iliopsoas, quadriceps, gastrocnemius, anterior tibialis. Sensation is slightly diminished. IMPRESSION: Status post cervical laminectomy C3-C6. RECOMMENDATION: To continue with the present course of management. Continue with Decadron at bed re . The patient has a pending cervical spine MRI. The patient was seen and examined with Dr. Aicha daugherty Dictated By: ARNOLDO LONDON for SAIMA INTERIANO/PUJA Conf#: [id number] DID#: [id number]
[2018-10-29] MEDS: ACCU-CHEK XX SCH (02:00)
[2018-10-29] MEDS: HYDROCODONE/APAP (7.5/325) TAB PO PRN ×2 (08:14→18:20)
--- NOTE | 2018-10-29 08:27 | CONS ---
Assessment/Plan Assessment/Plan Assessment/Plan (Daily) 1. Post op cx laminectomy, improving 2. CHO is well controlled 3. BP is controlled 4. Mendoza dc today, await post void residual 5. Can transfer to acute rehab later today Consultation Date/Type/Reason Admit Date/Time Oct 26, 2018 at 05:11 Initial Consult Date Date/Time of Note DATE: 10/29/18 TIME: 08:25 Detailed Summary Respiratory: No shortness of breath Cardiovascular: No chest pain, No orthopenea, No palpitations Gastrointestinal: other (constipated); No pain Genitourinary: other (mendoza removed this am) Neurologic: other (strenght right hand is better and less tingling upper extrem bilat) Exam/Review of Systems Exam Vitals Vital Signs Date Temp Pulse Resp B/P (MAP) Pulse Ox O2 O2 Flow FiO2 Time Delivery Rate 10/28/18 98.3 80 17 145/70 95 Room Air 23:50 (95) 10/28/18 2.0 01:31 Intake and Output 10/28/18 10/28/18 10/29/18 1515:00 23:00 07:00 IntakeIntake Total 1730 ml 540 ml 820 ml OutputOutput Total 1200 ml 660 ml BalanceBalance 530 ml -120 ml 820 ml Neck: No jvd Respiratory: clear to auscultation Cardiovascular: regular rate and rhythm Gastrointestinal: soft Extremities: No edema, No tenderness (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) Results Result Diagram: 10/29/18 0433 10/29/18 0433 Results 24hrs Laboratory Tests Test 10/28/18 08:28 10/28/18 12:48 10/28/18 17:28 10/28/18 20:56 Bedside Glucose 158 127 139 156 Test 10/29/18 04:33 White Blood Count 12.5 H Red Blood Count 4.07 L Hemoglobin 12.4 L Hematocrit 36.2 L Mean Corpuscular 88.9 Volume Mean Corpuscular 30.5 Hemoglobin Mean Corpuscular 34.3 Hemoglobin Concent Red Cell 12.1 Distribution Width Platelet Count 200 Mean Platelet Volume 10.4 Immature 0.600 H Granulocytes % Neutrophils % 92.5 H Lymphocytes % 4.4 L Monocytes % 2.4 Eosinophils % 0.0 Basophils % 0.1 Nucleated Red Blood 0.0 Cells % Immature 0.080 H Granulocytes # Neutrophils # 11.5 H Lymphocytes # 0.6 L Monocytes # 0.3 Eosinophils # 0.0 Basophils # 0.0 Nucleated Red Blood 0.0 Cells # Sodium Level 138 Potassium Level 4.7 Chloride Level 105 Carbon Dioxide Level 26 Anion Gap 7 Blood Urea Nitrogen 24 H Creatinine 1.08 Est Glomerular > 60 Filtrat Rate mL/min Glucose Level 150 Calcium Level 7.8 L Phosphorus Level 3.6 Magnesium Level 2.1 Medications Medication Current Medications Ondansetron HCl (Zofran Inj) 4 mg Q6H PRN IV NAUSEA AND/OR VOMITING; Start 10/26/18 at 10:00 Acetaminophen/ Hydrocodone Bitart ([place] (7.5-325)) 1 tab Q4H PRN PO MODERATE PAIN LEVEL 4-6 Last administered on 10/29/18at 08:14; Admin Dose 1 TAB; Start 10/26/18 at 10:30 Bupropion HCl (Wellbutrin Xl) 300 mg DAILY PO Last administered on 10/28/18 08:24; Admin Dose 300 MG; Start 10/27/18 at 09:00 Famotidine (Pepcid) 20 mg BID PO Last administered on 10/28/18at 20:50; Admin Dose 20 MG; Start 10/26/18 at 21:00 Febuxostat (Uloric) 40 mg DAILY PO Last administered on 10/28/18 08:24; Admin Dose 40 MG; Start 10/27/18 at 09:00 Atorvastatin Calcium (Lipitor) 40 mg DAILY@21 PO ; Start 10/26/18 at 21:00 Amlodipine Besylate (Norvasc) 5 mg DAILY PO Last administered on 10/28/18 08:25; Admin Dose 5 MG; Start 10/26/18 at 17:00 Benazepril HCl (Lotensin) 40 mg DAILY PO Last administered on 10/28/18 08:25; Admin Dose 40 MG; Start 10/26/18 at 17:00 Hydromorphone HCl (Dilaudid) 1 mg Q3H PRN IV MOD TO SEVERE PAIN Last administered on 10/27/18at 17:56; Admin Dose 1 MG; Start 10/26/18 at 18:00 Diagnostic Test (Pha) (Accu-Chek) 1 ea 02 XX Last administered on 10/28/18at 02:23; Admin Dose 1 EA; Start 10/28/18 at 02:00 Miscellaneous Information 1 ea NOTE XX ; Start 10/27/18 at 08:30 Glucose (Glutose) 15 gm Q15M PRN PO DECREASED GLUCOSE; Start 10/27/18 at 08:30 Glucose (Glutose) 22.5 gm Q15M PRN PO DECREASED GLUCOSE; Start 10/27/18 at 08:30 Dextrose (D50w Syringe) 25 ml Q15M PRN IV DECREASED GLUCOSE; Start 10/27/18 at 08:30 Dextrose (D50w Syringe) 50 ml Q15M PRN IV DECREASED GLUCOSE; Start 10/27/18 at 08:30 Glucagon (Glucagen) 1 mg Q15M PRN IM DECREASED GLUCOSE; Start 10/27/18 at 08:30 Glucose (Glutose) 15 gm Q15M PRN BUCCAL DECREASED GLUCOSE; Start 10/27/18 at 08:30 Zolpidem Tartrate (Ambien) 5 mg HS PRN PO INSOMNIA Last administered on 10/28/18at 23:31; Admin Dose 5 MG; Start 10/27/18 at 14:00 Insulin Aspart (Novolog Insulin Pen) NOVOLOG *MILD* ALGORITHM AC MEALS AND BEDTIME SC ; Start 10/28/18 at 11:10 Sodium Chloride 1,000 ml @ 30 mls/hr Q24H IV Last administered on 10/28/18at 10:46; Admin Dose 30 MLS/HR; Start 10/28/18 at 08:30 Tamsulosin HCl (Flomax) 0.4 mg HS PO Last administered on 10/28/18at 20:50; Admin Dose 0.4 MG; Start 10/28/18 at 21:00 Cyclobenzaprine HCl (Flexeril) 10 mg Q8H PRN PO MUSCLE SPASMS; Start 10/28/18 at 18:30 Baclofen (Lioresal) 5 mg TID PO Last administered on 10/28/18at 20:01; Admin Dose 5 MG; Start 10/28/18 at 20:30 Dexamethasone (Decadron) 4 mg BID PO Last administered on 10/28/18at 23:31; Admin Dose 4 MG; Start 10/28/18 at 21:00 VANDANA KESSLER MD Oct 29, 2018 08:27
[2018-10-29] MEDS: DEXAMETHASONE 4 MG TAB PO SCH ×2 (08:30→20:33)
[2018-10-29] MEDS: FEBUXOSTAT 40 MG TABLET PO SCH (08:30)
[2018-10-29] MEDS: FAMOTIDINE 20 MG TAB PO SCH ×2 (08:30→20:33)
[2018-10-29] MEDS: BUPROPION (XL) 150 MG TAB PO SCH (08:30)
[2018-10-29] MEDS: AMLODIPINE 5 MG TAB PO SCH (08:31)
[2018-10-29] MEDS: BENAZEPRIL 40 MG TAB PO SCH (08:31)
[2018-10-29] MEDS: INSULIN ASPART [NOVOLOG] 3 ML PEN SC SCH ×4 (08:37→20:41)
[2018-10-29 08:50] VITALS: BP 125/69; PULSE 71; RESP 15
[2018-10-29] MEDS: BACLOFEN 10 MG TAB PO PRN ×2 (12:56→19:34)
[2018-10-29 15:02] VITALS: BP 127/71; PULSE 79; RESP 16
--- NOTE | 2018-10-29 17:14 | CONS ---
Assessment/Plan Assessment/Plan Assessment/Plan (Daily) pt seen and examined approx 0730 awake alert follows better strength in upper and lower extremities cont with pt/ot will dc drain friday Consultation Date/Type/Reason Admit Date/Time Oct 26, 2018 at 05:11 Initial Consult Date Date/Time of Note DATE: 10/29/18 TIME: 17:13 Exam/Review of Systems Exam Vitals Vital Signs Date Temp Pulse Resp B/P (MAP) Pulse Ox O2 O2 Flow FiO2 Time Delivery Rate 10/29/18 79 16 127/71 98 15:02 (89) 10/29/18 98.0 Room Air 08:50 10/28/18 2.0 01:31 Intake and Output 10/28/18 10/28/18 10/29/18 1414:59 22:59 06:59 IntakeIntake Total 1730 ml 540 ml 820 ml OutputOutput Total 1200 ml 660 ml BalanceBalance 530 ml -120 ml 820 ml Results Result Diagram: 10/29/18 0433 10/29/18 0433 Results 24hrs Laboratory Tests Test 10/28/18 17:28 10/28/18 20:56 10/29/18 04:33 10/29/18 08:25 Bedside Glucose 139 156 148 White Blood Count 12.5 H Red Blood Count 4.07 L Hemoglobin 12.4 L Hematocrit 36.2 L Mean Corpuscular 88.9 Volume Mean Corpuscular 30.5 Hemoglobin Mean Corpuscular 34.3 Hemoglobin Concent Red Cell 12.1 Distribution Width Platelet Count 200 Mean Platelet Volume 10.4 Immature 0.600 H Granulocytes % Neutrophils % 92.5 H Lymphocytes % 4.4 L Monocytes % 2.4 Eosinophils % 0.0 Basophils % 0.1 Nucleated Red Blood 0.0 Cells % Immature 0.080 H Granulocytes # Neutrophils # 11.5 H Lymphocytes # 0.6 L Monocytes # 0.3 Eosinophils # 0.0 Basophils # 0.0 Nucleated Red Blood 0.0 Cells # Sodium Level 138 Potassium Level 4.7 Chloride Level 105 Carbon Dioxide Level 26 Anion Gap 7 Blood Urea Nitrogen 24 H Creatinine 1.08 Est Glomerular > 60 Filtrat Rate mL/min Glucose Level 150 Calcium Level 7.8 L Phosphorus Level 3.6 Magnesium Level 2.1 Test 10/29/18 12:51 Bedside Glucose 137 Medications Medication Current Medications Ondansetron HCl (Zofran Inj) 4 mg Q6H PRN IV NAUSEA AND/OR VOMITING; Start at 10:00 Acetaminophen/ Hydrocodone Bitart ([place] (7.5-325)) 1 tab Q4H PRN PO MODERATE PAIN LEVEL 4-6 Last administered on 10/29/18at 08:14; Admin Dose 1 TAB; Start 10/26/18 at 10:30 Bupropion HCl (Wellbutrin Xl) 300 mg DAILY PO Last administered on 10/29/18at 08:30; Admin Dose 300 MG; Start 10/27/18 at 09:00 Famotidine (Pepcid) 20 mg BID PO Last administered on 10/29/18 08:30; Admin Dose 20 MG; Start 10/26/18 at 21:00 Febuxostat (Uloric) 40 mg DAILY PO Last administered on 10/29/18 08:30; Admin Dose 40 MG; Start 10/27/18 at 09:00 Atorvastatin Calcium (Lipitor) 40 mg DAILY@21 PO ; Start 10/26/18 at 21:00 Amlodipine Besylate (Norvasc) 5 mg DAILY PO Last administered on 10/29/18 08 :31; Admin Dose 5 MG; Start 10/26/18 at 17:00 Benazepril HCl (Lotensin) 40 mg DAILY PO Last administered on 10/29/18 08:31; Admin Dose 40 MG; Start 10/26/18 at 17:00 Hydromorphone HCl (Dilaudid) 1 mg Q3H PRN IV MOD TO SEVERE PAIN Last administered on 10/27/18at 17:56; Admin Dose 1 MG; Start 10/26/18 at 18:00 Diagnostic Test (Pha) (Accu-Chek) 1 ea 02 XX Last administered on 10/28/18at 02:23; Admin Dose 1 EA; Start 10/28/18 at 02:00 Miscellaneous Information 1 ea NOTE XX ; Start 10/27/18 at 08:30 Glucose (Glutose) 15 gm Q15M PRN PO DECREASED GLUCOSE; Start 10/27/18 at 08:30 Glucose (Glutose) 22.5 gm Q15M PRN PO DECREASED GLUCOSE; Start 10/27/18 at 08:30 Dextrose (D50w Syringe) 25 ml Q15M PRN IV DECREASED GLUCOSE; Start 10/27/18 at 08:30 Dextrose (D50w Syringe) 50 ml Q15M PRN IV DECREASED GLUCOSE; Start 10/27/18 at 08:30 Glucagon (Glucagen) 1 mg Q15M PRN IM DECREASED GLUCOSE; Start 10/27/18 at 08:30 Glucose (Glutose) 15 gm Q15M PRN BUCCAL DECREASED GLUCOSE; Start 10/27/18 at 08:30 Zolpidem Tartrate (Ambien) 5 mg HS PRN PO INSOMNIA Last administered on 10/28/18at 23:31; Admin Dose 5 MG; Start 10/27/18 at 14:00 Insulin Aspart (Novolog Insulin Pen) NOVOLOG *MILD* ALGORITHM AC MEALS AND BEDTIME SC Last administered on 10/29/18 08:37; Admin Dose 1 UNIT; Start 10/28/18 at 11:10 Tamsulosin HCl (Flomax) 0.4 mg HS PO Last administered on 10/28/18at 20:50; Admin Dose 0.4 MG; Start 10/28/18 at 21:00 Cyclobenzaprine HCl (Flexeril) 10 mg Q8H PRN PO MUSCLE SPASMS; Start 10/28/18 a t 18:30 Dexamethasone (Decadron) 4 mg BID PO Last administered on 10/29/18 08:30; Admin Dose 4 MG; Start 10/28/18 at 21:00 Baclofen (Lioresal) 5 mg TID PRN PO hiccups Last administered on 10/29/18at 12:56; Admin Dose 5 MG; Start 10/29/18 at 08:30 ARNOLDO AKERS PA-C Oct 29, 2018 17:14
[2018-10-29 19:20] VITALS: BP 121/73; PULSE 76; RESP 18
[2018-10-29] MEDS ORDERED: HYDROCODONE/APAP (10/325) TAB PO PRN (20:00)
[2018-10-29] MEDS ORDERED: HYDROCODONE/APAP (10/325) TAB PO ONE (20:00)
[2018-10-29] MEDS: ATORVASTATIN 40 MG TAB PO SCH (21:00)
[2018-10-29] MEDS: TAMSULOSIN (SR) 0.4 MG CAP PO SCH (21:00)
[2018-10-29] MEDS: HYDROCODONE/APAP (10/325) TAB PO PRN (22:39)
[2018-10-30] MEDS: ACCU-CHEK XX SCH (00:44)
[2018-10-30 02:30] VITALS: BP 127/61; PULSE 69; RESP 18
[2018-10-30] MEDS: ZOLPIDEM 5 MG TAB PO PRN ×2 (02:49→21:05)
[2018-10-30 07:51] VITALS: BP 131/72; PULSE 72; RESP 19
--- NOTE | 2018-10-30 08:28 | CONS ---
Assessment/Plan Assessment/Plan Assessment/Plan (Daily) 1. Post op cx spine surgery with slowly improving weakness upper extrem 2. CHO control has improved, will change coverage to ac only 3. BP is controlled 4. Constipation without discomfort, pt prefers no laxative now 5. He is voiding without difficulty 6. Transfer to acute rehab once drain has been removed if ok with ortho and NS Consultation Date/Type/Reason Admit Date/Time Oct 26, 2018 at 05:11 Initial Consult Date Date/Time of Note DATE: 10/30/18 TIME: 08:25 Detailed Summary Respiratory: No cough, No shortness of breath Cardiovascular: No chest pain, No orthopenea Gastrointestinal: other (constipated, passing gas and NOT uncomfortable) Genitourinary: no complaints Musculoskeletal: neck pain (less with only sl improvement in right upper extrem weakness) Exam/Review of Systems Exam Vitals Vital Signs Date Temp Pulse Resp B/P (MAP) Pulse Ox O2 O2 Flow FiO2 Time Delivery Rate 10/30/18 97.2 72 19 131/72 97 07:51 (91) 10/29/18 Room Air 08:50 10/28/18 2.0 01:31 Intake and Output 10/29/18 10/29/18 10/30/18 1515:00 23:00 07:00 IntakeIntake Total 300 ml 200 ml OutputOutput Total 1020 ml 1039 ml 500 ml BalanceBalance -720 ml -1039 ml -300 ml Neck: No jvd Respiratory: clear to auscultation Cardiovascular: regular rate and rhythm Gastrointestinal: soft Extremities: No edema, No pitting pedal edema, No tenderness Neurological: other (right upper extrem>left upper extrem weakness) Results Result Diagram: 10/29/18 0433 10/29/18 0433 Results 24hrs Laboratory Tests Test 10/29/18 12:51 10/29/18 17:39 10/29/18 20:35 Bedside Glucose 137 130 153 Medications Medication Current Medications Ondansetron HCl (Zofran Inj) 4 mg Q6H PRN IV NAUSEA AND/OR VOMITING; Start 10/26/18 at 10:00 Bupropion HCl (Wellbutrin Xl) 300 mg DAILY PO Last administered on 10/29/18at 08:30; Admin Dose 300 MG; Start 10/27/18 at 09:00 Famotidine (Pepcid) 20 mg BID PO Last administered on 10/29/18at 20:33; Admin Dose 20 MG; Start 10/26/18 at 21:00 Febuxostat (Uloric) 40 mg DAILY PO Last administered on 10/29/18at 08:30; Admin Dose 40 MG; Start 10/27/18 at 09:00 Atorvastatin Calcium (Lipitor) 40 mg DAILY@21 PO ; Start 10/26/18 at 21:00 Amlodipine Besylate (Norvasc) 5 mg DAILY PO Last administered on 10/29/18at 08:31; Admin Dose 5 MG; Start 10/26/18 at 17:00 Benazepril HCl (Lotensin) 40 mg DAILY PO Last administered on 10/29/18at 08:31; Admin Dose 40 MG; Start 10/26/18 at 17:00 Hydromorphone HCl (Dilaudid) 1 mg Q3H PRN IV MOD TO SEVERE PAIN Last administered on 10/27/18at 17:56; Admin Dose 1 MG; Start 10/26/18 at 18:00 Diagnostic Test (Pha) (Accu-Chek) 1 ea 02 XX Last administered on 10/28/18at 02:23; Admin Dose 1 EA; Start 10/28/18 at 02:00 Miscellaneous Information 1 ea NOTE XX ; Start 10/27/18 at 08:30 Glucose (Glutose) 15 gm Q15M PRN PO DECREASED GLUCOSE; Start 10/27/18 at 08:30 Glucose (Glutose) 22.5 gm Q15M PRN PO DECREASED GLUCOSE; Start 10/27/18 at 08:30 Dextrose (D50w Syringe) 25 ml Q15M PRN IV DECREASED GLUCOSE; Start 10/27/18 at 08:30 Dextrose (D50w Syringe) 50 ml Q15M PRN IV DECREASED GLUCOSE; Start 10/27/18 at 08:30 Glucagon (Glucagen) 1 mg Q15M PRN IM DECREASED GLUCOSE; Start 10/27/18 at 08:30 Glucose (Glutose) 15 gm Q15M PRN BUCCAL DECREASED GLUCOSE; Start 10/27/18 at 08:30 Zolpidem Tartrate (Ambien) 5 mg HS PRN PO INSOMNIA Last administered on 10/30/18at 02:49; Admin Dose 5 MG; Start 10/27/18 at 14:00 Tamsulosin HCl (Flomax) 0.4 mg HS PO Last administered on 10/28/18at 20:50; Admin Dose 0.4 MG; Start 10/28/18 at 21:00 Cyclobenzaprine HCl (Flexeril) 10 mg Q8H PRN PO MUSCLE SPASMS; Start 10/28/18 at 18:30 Dexamethasone (Decadron) 4 mg BID PO Last administered on 10/29/18at 20:33; Admin Dose 4 MG; Start 10/28/18 at 21:00 Baclofen (Lioresal) 5 mg TID PRN PO hiccups Last administered on 10/29/18at 19:34; Admin Dose 5 MG; Start 10/29/18 at 08:30 Acetaminophen/ Hydrocodone Bitart ([place] (10/325)) 1 tab Q4H PRN PO MODERATE PAIN LEVEL 4-6 Last administered on 10/29/18at 22:39; Admin Dose 1 TAB; Start 10/29/18 at 20:00 Acetaminophen/ Hydrocodone Bitart ([place] (10/325)) 2 tab Q4H PRN PO PAIN LEVEL 7-10; Start 10/29/18 at 20:00 Insulin Aspart (Novolog Insulin Pen) NOVOLOG *MILD* ALGORITHM AC MEALS SC ; Start 10/30/18 at 11:10; Status UNVANDANA ALCANTARA MD Oct 30, 2018 08:28
[2018-10-30] MEDS: DEXAMETHASONE 4 MG TAB PO SCH ×2 (08:56→21:04)
[2018-10-30] MEDS: BENAZEPRIL 40 MG TAB PO SCH (08:56)
[2018-10-30] MEDS: FAMOTIDINE 20 MG TAB PO SCH ×2 (08:57→21:05)
[2018-10-30] MEDS: AMLODIPINE 5 MG TAB PO SCH (08:57)
[2018-10-30] MEDS: BUPROPION (XL) 150 MG TAB PO SCH (08:57)
[2018-10-30] MEDS: FEBUXOSTAT 40 MG TABLET PO SCH (09:59)
[2018-10-30] MEDS: BACLOFEN 10 MG TAB PO PRN (11:24)
[2018-10-30] MEDS: INSULIN ASPART [NOVOLOG] 3 ML PEN SC SCH ×2 (13:00→17:25)
[2018-10-30 15:00] VITALS: BP 136/74; PULSE 75
--- NOTE | 2018-10-30 15:29 | CONS ---
Assessment/Plan Assessment/Plan Assessment/Plan (Daily) seen and examined doing better able to move hands/arms against gravity, strength 3+-4/5 moves lower extremities better, strength 4/5 bilaterally will dc drain in am wound looks ok, dry avoid pressure back of neck cont pt/ot ok for rehab once drain is dced Consultation Date/Type/Reason Admit Date/Time Oct 26, 2018 at 05:11 Initial Consult Date Date/Time of Note DATE: 10/30/18 TIME: 15:27 Exam/Review of Systems Exam Vitals Vital Signs Date Temp Pulse Resp B/P (MAP) Pulse Ox O2 O2 Flow FiO2 Time Delivery Rate 10/30/18 98.4 75 136/74 94 15:00 (94) 10/30/18 07:51 10/29/18 Room Air 08:50 10/28/18 2.0 01:31 Intake and Output 10/29/18 10/29/18 10/30/18 1515:00 23:00 07:00 IntakeIntake Total 300 ml 200 ml OutputOutput Total 1020 ml 1039 ml 500 ml BalanceBalance -720 ml -1039 ml -300 ml Results Result Diagram: 10/29/18 0433 10/29/18 0433 Results 24hrs Laboratory Tests Test 10/29/18 17:39 10/29/18 20:35 10/30/18 08:55 10/30/18 13:07 Bedside Glucose 130 153 125 116 Medications Medication Current Medications Ondansetron HCl (Zofran Inj) 4 mg Q6H PRN IV NAUSEA AND/OR VOMITING; Start 10/26/18 at 10:00 Bupropion HCl (Wellbutrin Xl) 300 mg DAILY PO Last administered on 10/30/18at 08:57; Admin Dose 300 MG; Start 10/27/18 at 09:00 Famotidine (Pepcid) 20 mg BID PO Last administered on 10/30/18at 08:57; Admin Dose 20 MG; Start 10/26/18 at 21:00 Febuxostat (Uloric) 40 mg DAILY PO Last administered on 10/30/18at 09:59; Admin Dose 40 MG; Start 10/27/18 at 09:00 Atorvastatin Calcium (Lipitor) 40 mg DAILY@21 PO ; Start 10/26/18 at 21:00 Amlodipine Besylate (Norvasc) 5 mg DAILY PO Last administered on 10/30/18 08:57; Admin Dose 5 MG; Start 10/26/18 at 17:00 Benazepril HCl (Lotensin) 40 mg DAILY PO Last administered on 10/30/18 08:56; Admin Dose 40 MG; Start 10/26/18 at 17:00 Hydromorphone HCl (Dilaudid) 1 mg Q3H PRN IV MOD TO SEVERE PAIN Last administered on 10/27/18at 17:56; Admin Dose 1 MG; Start 10/26/18 at 18:00 Diagnostic Test (Pha) (Accu-Chek) 1 ea 02 XX Last administered on 10/28/18at 02:23; Admin Dose 1 EA; Start 10/28/18 at 02:00 Miscellaneous Information 1 ea NOTE XX ; Start 10/27/18 at 08:30 Glucose (Glutose) 15 gm Q15M PRN PO DECREASED GLUCOSE; Start 10/27/18 at 08:30 Glucose (Glutose) 22.5 gm Q15M PRN PO DECREASED GLUCOSE; Start 10/27/18 at 08:30 Dextrose (D50w Syringe) 25 ml Q15M PRN IV DECREASED GLUCOSE; Start 10/27/18 at 08:30 Dextrose (D50w Syringe) 50 ml Q15M PRN IV DECREASED GLUCOSE; Start 10/27/18 at 08:30 Glucagon (Glucagen) 1 mg Q15M PRN IM DECREASED GLUCOSE; Start 10/27/18 at 08:30 Glucose (Glutose) 15 gm Q15M PRN BUCCAL DECREASED GLUCOSE; Start 10/27/18 at 08:30 Zolpidem Tartrate (Ambien) 5 mg HS PRN PO INSOMNIA Last administered on 10/30/18at 02:49; Admin Dose 5 MG; Start 10/27/18 at 14:00 Tamsulosin HCl (Flomax) 0.4 mg HS PO Last administered on 10/28/18at 20:50; Admin Dose 0.4 MG; Start 10/28/18 at 21:00 Cyclobenzaprine HCl (Flexeril) 10 mg Q8H PRN PO MUSCLE SPASMS; Start 10/28/18 at 18:30 Dexamethasone (Decadron) 4 mg BID PO Last administered on 10/30/18at 08:56; Admin Dose 4 MG; Start 10/28/18 at 21:00 Baclofen (Lioresal) 5 mg TID PRN PO hiccups Last administered on 10/30/18at 11:24; Admin Dose 5 MG; Start 10/29/18 at 08:30 Acetaminophen/ Hydrocodone Bitart ([place] (10/325)) 1 tab Q4H PRN PO MODERATE PAIN LEVEL 4-6 Last administered on 10/29/18at 22:39; Admin Dose 1 TAB; Start 10/29/18 at 20:00 Acetaminophen/ Hydrocodone Bitart ([place] (10/325)) 2 tab Q4H PRN PO PAIN LEVEL 7-10; Start 10/29/18 at 20:00 Insulin Aspart (Novolog Insulin Pen) NOVOLOG *MILD* ALGORITHM AC MEALS SC ; Start 10/30/18 at 11:10 ARNOLDO AKERS PA-C Oct 30, 2018 15:29
[2018-10-30] MEDS: ATORVASTATIN 40 MG TAB PO SCH ×2 (21:00→21:05)
[2018-10-30] MEDS: HYDROCODONE/APAP (10/325) TAB PO PRN (21:04)
[2018-10-30] MEDS: TAMSULOSIN (SR) 0.4 MG CAP PO SCH (21:05)
[2018-10-30 21:06] VITALS: BP 143/76; PULSE 76; RESP 18
[2018-10-31] MEDS: ZOLPIDEM 5 MG TAB PO PRN ×2 (00:01→22:14)
[2018-10-31] MEDS: ACCU-CHEK XX SCH (02:00)
[2018-10-31 07:20] VITALS: BP 116/62; PULSE 64; RESP 18
[2018-10-31] MEDS: INSULIN ASPART [NOVOLOG] 3 ML PEN SC SCH ×3 (08:30→17:25)
[2018-10-31] MEDS: BENAZEPRIL 40 MG TAB PO SCH (08:42)
[2018-10-31] MEDS: AMLODIPINE 5 MG TAB PO SCH (08:42)
[2018-10-31] MEDS: BUPROPION (XL) 150 MG TAB PO SCH (08:42)
[2018-10-31] MEDS: FAMOTIDINE 20 MG TAB PO SCH ×2 (08:49→20:38)
[2018-10-31] MEDS: FEBUXOSTAT 40 MG TABLET PO SCH (08:56)
--- NOTE | 2018-10-31 12:22 | CONS ---
Consult Date/Type/Reason Admit Date/Time Oct 26, 2018 at 05:11 Initial Consult Date 10/26/2018 Type of Consultation: Medicine Reason for Consultation HTN, gout, HLD, MDD Requesting Provider: SAIMA GOLD MD Date/Time of Note DATE: 10/31/18 TIME: 12:15 Subjective Patient endorses improve strength in both upper extremities. Right upper extremity continues to have paresthesia and patient has some weakness, difficulty opposing fingers to thumb. Gait/balance improving. Working with PT. Pain adequately controlled. Some hiccups, baclofen helps when using. No fevers, chills, nausea, vomiting, diarrhea, chest pain, sob, cough. Patient does have constipation. No BM since before surgery. Typically has BM once daily to QOD. Objective Vitals Vital Signs Date Temp Pulse Resp B/P (MAP) Pulse Ox O2 O2 Flow FiO2 Time Delivery Rate 10/31/18 97.5 64 18 116/62 96 Room Air 07:20 (80) 10/28/18 2.0 01:31 Intake and Output 10/30/18 10/30/18 10/31/18 1515:00 23:00 07:00 IntakeIntake Total 840 ml 660 ml 720 ml OutputOutput Total 30 ml 20 ml 905 ml BalanceBalance 810 ml 640 ml -185 ml Exam Gen-NAD HEENT-OP clear, mmm CV-RRR, nml s1/s2 Pulm-CTAB on anterior exam, no w/r/r Abd-mildly distended, mildly tender, +BS Ext-no c/c/e. 5/5 strength of bilateral lower extremity. 5/5 strength LUE. 5-/5 on right upper extremity. Can only oppose thumb to first, second, third finger on right. Results/Medications Result Diagram: 10/31/18 0830 10/31/18 0830 Results 24 hrs Laboratory Tests Test 10/30/18 13:07 10/31/18 08:30 10/31/18 08:37 Bedside Glucose 116 119 White Blood Count 10.2 Red Blood Count 4.66 L Hemoglobin 14.1 Hematocrit 40.5 L Mean Corpuscular Volume 86.9 Mean Corpuscular Hemoglobin 30.3 Mean Corpuscular Hemoglobin Concent 34.8 Red Cell Distribution Width 11.9 Platelet Count 231 Mean Platelet Volume 10.1 Immature Granulocytes % 1.100 H Neutrophils % 89.1 H Lymphocytes % 5.3 L Monocytes % 4.4 Eosinophils % 0.0 Basophils % 0.1 Nucleated Red Blood Cells % 0.0 Immature Granulocytes # 0.110 H Neutrophils # 9.1 H Lymphocytes # 0.5 L Monocytes # 0.5 Eosinophils # 0.0 Basophils # 0.0 Nucleated Red Blood Cells # 0.0 Sodium Level 135 Potassium Level 4.9 Chloride Level 105 Carbon Dioxide Level 23 Anion Gap 7 Blood Urea Nitrogen 31 H Creatinine 1.05 Est Glomerular Filtrat Rate mL/min > 60 Glucose Level 131 Calcium Level 8.1 L Phosphorus Level 4.7 Magnesium Level 2.3 Home Meds Reported Medications Bupropion Hcl* (Wellbutrin XL*) 300 Mg Tab.sr.24h, 300 MG PO DAILY, TAB.SA 10/26/18 Famotidine* (Famotidine*) 20 Mg Tablet, 20 MG PO BID, #60 TAB 10/26/18 Febuxostat* (Uloric*) 40 Mg Tablet, 40 MG PO DAILY, TAB 10/26/18 Rosuvastatin Calcium* (Crestor*) 20 Mg Tablet, 20 MG PO QHS, #30 TAB 10/26/18 Amlodipine Besylate/Benazepril (Lotrel 5-40 mg Capsule) 1 Each Capsule, 1 EACH PO QPM, CAP 10/26/18 Medications Current Medications Ondansetron HCl (Zofran Inj) 4 mg Q6H PRN IV NAUSEA AND/OR VOMITING; Start 10/26/18 at 10:00 Bupropion HCl (Wellbutrin Xl) 300 mg DAILY PO Last administered on 10/31/18at 08:42; Admin Dose 300 MG; Start 10/27/18 at 09:00 Famotidine (Pepcid) 20 mg BID PO Last administered on 10/30/18at 21:05; Admin Dose 20 MG; Start 10/26/18 at 21:00 Febuxostat (Uloric) 40 mg DAILY PO Last administered on 10/31/18at 08:56; Admin Dose 40 MG; Start 10/27/18 at 09:00 Atorvastatin Calcium (Lipitor) 40 mg DAILY@21 PO ; Start 10/26/18 at 21:00 Amlodipine Besylate (Norvasc) 5 mg DAILY PO Last administered on 10/31/18at 08:42; Admin Dose 5 MG; Start 10/26/18 at 17:00 Benazepril HCl (Lotensin) 40 mg DAILY PO Last administered on 10/31/18at 08:42; Admin Dose 40 MG; Start 10/26/18 at 17:00 Hydromorphone HCl (Dilaudid) 1 mg Q3H PRN IV MOD TO SEVERE PAIN Last administered on 10/27/18at 17:56; Admin Dose 1 MG; Start 10/26/18 at 18:00 Diagnostic Test (Pha) (Accu-Chek) 1 ea 02 XX Last administered on 10/28/18at 02:23; Admin Dose 1 EA; Start 10/28/18 at 02:00 Miscellaneous Information 1 ea NOTE XX ; Start 10/27/18 at 08:30 Glucose (Glutose) 15 gm Q15M PRN PO DECREASED GLUCOSE; Start 10/27/18 at 08:30 Glucose (Glutose) 22.5 gm Q15M PRN PO DECREASED GLUCOSE; Start 10/27/18 at 08:30 Dextrose (D50w Syringe) 25 ml Q15M PRN IV DECREASED GLUCOSE; Start 10/27/18 at 08:30 Dextrose (D50w Syringe) 50 ml Q15M PRN IV DECREASED GLUCOSE; Start 10/27/18 at 08:30 Glucagon (Glucagen) 1 mg Q15M PRN IM DECREASED GLUCOSE; Start 10/27/18 at 08:30 Glucose (Glutose) 15 gm Q15M PRN BUCCAL DECREASED GLUCOSE; Start 10/27/18 at 08:30 Zolpidem Tartrate (Ambien) 5 mg HS PRN PO INSOMNIA Last administered on 10/31/18at 00:01; Admin Dose 5 MG; Start 10/27/18 at 14:00 Tamsulosin HCl (Flomax) 0.4 mg HS PO Last administered on 10/30/18at 21:05; Admin Dose 0.4 MG; Start 10/28/18 at 21:00 Cyclobenzaprine HCl (Flexeril) 10 mg Q8H PRN PO MUSCLE SPASMS; Start 10/28/18 at 18:30 Dexamethasone (Decadron) 4 mg BID PO Last administered on 10/30/18at 21:04; Admin Dose 4 MG; Start 10/28/18 at 21:00 Baclofen (Lioresal) 5 mg TID PRN PO hiccups Last administered on 10/30/18at 11:24; Admin Dose 5 MG; Start 10/29/18 at 08:30 Acetaminophen/ Hydrocodone Bitart ([place] (10/325)) 1 tab Q4H PRN PO MODERATE PAIN LEVEL 4-6 Last administered on 10/30/18at 21:04; Admin Dose 1 TAB; Start 10/29/18 at 20:00 Acetaminophen/ Hydrocodone Bitart ([place] (10/325)) 2 tab Q4H PRN PO PAIN LEVEL 7-10; Start 10/29/18 at 20:00 Insulin Aspart (Novolog Insulin Pen) NOVOLOG *MILD* ALGORITHM AC MEALS SC ; Start 10/30/18 at 11:10 Assessment/Plan Hospital Course (Demo Recall) 68 y/o male pmh HTN, gout, HLD s/p cervical laminectomy 10/26/2018 for cervical myelopathy c/b hyperglycemia 2/2 steroids and residual upper extremity weakness, R/L, improving. Planned for rehab transfer after drain removed. Assessment/Plan (Daily) #s/p cervical decompression with laminectomy. -drain being removed now -taper/dc steroids per surgery -judicious pain management -PT #constipation -will add daily miralax and colace #HTN -home meds #gout -uloric #HLD -atorva #MDD -wellbutrin Dispo-after drain removed can likely be transferred to rehab KAYLYNN HILL MD Oct 31, 2018 12:22
--- NOTE | 2018-10-31 12:27 | PN ---
Date/Time of Note Date/Time of Note DATE: 10/31/18 TIME: 12:24 Assessment/Plan Lines/Catheters IV Catheter Type (from Nrsg): Saline Lock Rowan in Place (from Nrsg): No Subjective 24 Hr Interval Summary The patient is postop day #5 following a multilevel cervical decompressive laminectomy from C3-C6. He is resting comfortably in bed. His Hemovac had minimal drainage (5 cc). Neurovascular structures are intact distally, and his strength continues to improve daily. His Hemovac drain was removed, and his incision is clean and dry and was redressed. He continues to improve with his physical therapy gait training. He anticipates a transfer to the rehab floor tomorrow for continued postoperative rehabilitation. Exam/Review of Systems Vital Signs Vitals Vital Signs Date Temp Pulse Resp B/P (MAP) Pulse Ox O2 O2 Flow FiO2 Time Delivery Rate 10/31/18 97.5 64 18 116/62 96 Room Air 07:20 (80) 10/28/18 2.0 01:31 Intake and Output 10/30/18 10/30/18 10/31/18 1515:00 23:00 07:00 IntakeIntake Total 840 ml 660 ml 720 ml OutputOutput Total 30 ml 20 ml 905 ml BalanceBalance 810 ml 640 ml -185 ml Results Result Diagram: 10/31/18 0830 10/31/18 0830 FIORELLA FIGUEROA MD Oct 31, 2018 12:27
[2018-10-31] MEDS: DOCUSATE SODIUM 100 MG CAP PO SCH ×2 (12:47→20:39)
[2018-10-31] MEDS: POLYETHYLENE GLYCOL 17 GM PACKET PO SCH (12:47)
[2018-10-31] MEDS: HYDROCODONE/APAP (10/325) TAB PO PRN (19:08)
[2018-10-31 19:30] VITALS: BP 142/66; PULSE 70; RESP 18
[2018-10-31] MEDS ORDERED: TESTOSTERONE CYPIONATE 200 MG/ML INJ IM ONE (19:30)
[2018-10-31] MEDS: TAMSULOSIN (SR) 0.4 MG CAP PO SCH (21:00)
[2018-10-31] MEDS: ATORVASTATIN 40 MG TAB PO SCH (21:00)
[2018-11-01] MEDS: ACCU-CHEK XX SCH (02:00)
[2018-11-01 07:43] VITALS: BP 133/73; PULSE 58; RESP 18
[2018-11-01] MEDS: INSULIN ASPART [NOVOLOG] 3 ML PEN SC SCH ×2 (08:58→12:57)
[2018-11-01] MEDS: FEBUXOSTAT 40 MG TABLET PO SCH (09:03)
[2018-11-01] MEDS: FAMOTIDINE 20 MG TAB PO SCH (09:03)
[2018-11-01] MEDS: BUPROPION (XL) 150 MG TAB PO SCH (09:03)
[2018-11-01] MEDS: AMLODIPINE 5 MG TAB PO SCH (09:03)
[2018-11-01] MEDS: DOCUSATE SODIUM 100 MG CAP PO SCH (09:03)
[2018-11-01] MEDS: BENAZEPRIL 40 MG TAB PO SCH (09:04)
[2018-11-01] MEDS: POLYETHYLENE GLYCOL 17 GM PACKET PO SCH (09:04)
[2018-11-01] MEDS ORDERED: NA PHOSPHATE/BIPHOS 133 ML ENEMA PR PRN (09:30)
[2018-11-01] MEDS ORDERED: BISACODYL 10 MG SUPP PR PRN (09:30)
[2018-11-01] MEDS ORDERED: ACETAMINOPHEN 500 MG TAB PO PRN (09:30)
[2018-11-01] MEDS ORDERED: MAGNESIUM HYDROXIDE 30ML CUP PO PRN (09:30)
--- NOTE | 2018-11-01 11:45 | CONS ---
Consult Date/Type/Reason Admit Date/Time Oct 26, 2018 at 05:11 Initial Consult Date 10/26/2018 Type of Consultation: Medicine Reason for Consultation Medical management Requesting Provider: SAIMA GOLD MD Date/Time of Note DATE: 11/01/18 TIME: 11:42 Subjective Patients pain, strength improving. Better strength in RUE. Continues to be constipation and causing mild discomfort. Denies fevers, chills, nausea, vomiting, diarrhea, chest pain, sob Objective Vitals Vital Signs Date Temp Pulse Resp B/P (MAP) Pulse Ox O2 O2 Flow FiO2 Time Delivery Rate 11/01/18 98.0 58 18 133/73 95 Room Air 07:43 (93) Intake and Output 10/31/18 10/31/18 11/01/18 1515:00 23:00 07:00 IntakeIntake Total 500 ml 760 ml 180 ml OutputOutput Total 700 ml 700 ml 800 ml BalanceBalance -200 ml 60 ml -620 ml Exam Gen-NAD HEENT-OP clear, mmm CV-RRR, nml s1/s2 Pulm-CTAB on anterior exam, no w/r/r Abd-mildly distended, mildly tender, +BS Ext-no c/c/e. 5/5 strength of bilateral lower extremity. 5/5 strength LUE. 5-/5 on right upper extremity. Results/Medications Result Diagram: 10/31/18 0830 10/31/18 0830 Results 24 hrs Laboratory Tests Test 10/31/18 12:45 10/31/18 18:12 11/01/18 08:45 Bedside Glucose 112 135 87 Home Meds Reported Medications Bupropion Hcl* (Wellbutrin XL*) 300 Mg Tab.sr.24h, 300 MG PO DAILY, TAB.SA 10/26/18 Famotidine* (Famotidine*) 20 Mg Tablet, 20 MG PO BID, #60 TAB 10/26/18 Febuxostat* (Uloric*) 40 Mg Tablet, 40 MG PO DAILY, TAB 10/26/18 Rosuvastatin Calcium* (Crestor*) 20 Mg Tablet, 20 MG PO QHS, #30 TAB 10/26/18 Amlodipine Besylate/Benazepril (Lotrel 5-40 mg Capsule) 1 Each Capsule, 1 EACH PO QPM, CAP 7/15/19 Medications Current Medications Ondansetron HCl (Zofran Inj) 4 mg Q6H PRN IV NAUSEA AND/OR VOMITING; Start 10/26/18 at 10:00 Bupropion HCl (Wellbutrin Xl) 300 mg DAILY PO Last administered on 11/01/18at 09:03; Admin Dose 300 MG; Start 10/27/18 at 09:00 Famotidine (Pepcid) 20 mg BID PO Last administered on 11/01/18at 09:03; Admin Dose 20 MG; Start 10/26/18 at 21:00 Febuxostat (Uloric) 40 mg DAILY PO Last administered on 11/01/18at 09:03; Admin Dose 40 MG; Start 10/27/18 at 09:00 Atorvastatin Calcium (Lipitor) 40 mg DAILY@21 PO ; Start 10/26/18 at 21:00 Amlodipine Besylate (Norvasc) 5 mg DAILY PO Last administered on 11/01/18at 09:03; Admin Dose 5 MG; Start 10/26/18 at 17:00 Benazepril HCl (Lotensin) 40 mg DAILY PO Last administered on 11/01/18at 09:04; Admin Dose 40 MG; Start 10/26/18 at 17:00 Hydromorphone HCl (Dilaudid) 1 mg Q3H PRN IV MOD TO SEVERE PAIN Last administered on 10/27/18at 17:56; Admin Dose 1 MG; Start 10/26/18 at 18:00 Diagnostic Test (Pha) (Accu-Chek) 1 ea 02 XX Last administered on 10/28/18at 02:23; Admin Dose 1 EA; Start 10/28/18 at 02:00 Miscellaneous Information 1 ea NOTE XX ; Start 10/27/18 at 08:30 Glucose (Glutose) 15 gm Q15M PRN PO DECREASED GLUCOSE; Start 10/27/18 at 08:30 Glucose (Glutose) 22.5 gm Q15M PRN PO DECREASED GLUCOSE; Start 10/27/18 at 08:30 Dextrose (D50w Syringe) 25 ml Q15M PRN IV DECREASED GLUCOSE; Start 10/27/18 at 08:30 Dextrose (D50w Syringe) 50 ml Q15M PRN IV DECREASED GLUCOSE; Start 10/27/18 at 08:30 Glucagon (Glucagen) 1 mg Q15M PRN IM DECREASED GLUCOSE; Start 10/27/18 at 08:30 Glucose (Glutose) 15 gm Q15M PRN BUCCAL DECREASED GLUCOSE; Start 10/27/18 at 08:30 Zolpidem Tartrate (Ambien) 5 mg HS PRN PO INSOMNIA Last administered on 10/31/18at 22:14; Admin Dose 5 MG; Start 10/27/18 at 14:00 Tamsulosin HCl (Flomax) 0.4 mg HS PO Last administered on 10/30/18at 21:05; Admin Dose 0.4 MG; Start 10/28/18 at 21:00 Cyclobenzaprine HCl (Flexeril) 10 mg Q8H PRN PO MUSCLE SPASMS; Start 10/28/18 at 18:30 Baclofen (Lioresal) 5 mg TID PRN PO hiccups Last administered on 10/30/18at 11:24; Admin Dose 5 MG; Start 10/29/18 at 08:30 Acetaminophen/ Hydrocodone Bitart ([place] (10/325)) 1 tab Q4H PRN PO MODERATE PAIN LEVEL 4-6 Last administered on 10/31/18at 19:08; Admin Dose 1 TAB; Start 10/29/18 at 20:00 Acetaminophen/ Hydrocodone Bitart ([place] (10/325)) 2 tab Q4H PRN PO PAIN LEVEL 7-10; Start 10/29/18 at 20:00 Insulin Aspart (Novolog Insulin Pen) NOVOLOG *MILD* ALGORITHM AC MEALS SC ; Start 10/30/18 at 11:10 Polyethylene Glycol (Miralax) 17 gm DAILY PO Last administered on 11/01/18at 09:04; Admin Dose 17 GM; Start 10/31/18 at 12:30 Docusate Sodium (Colace) 100 mg BID PO Last administered on 11/01/18 09:03; Admin Dose 100 MG; Start 10/31/18 at 12:30 Acetaminophen (Tylenol Tab) 1,000 mg Q8H PRN PO MILD PAIN(1-3)OR ELEVATED TEMP Last administered on 11/01/18at 10:17; Admin Dose 1,000 MG; Start 11/01/18 at 09:30 Bisacodyl (Dulcolax Supp) 10 mg DAILY PRN PA CONSTIPATION Last administered on 11/01/18at 10:57; Admin Dose 10 MG; Start 11/01/18 at 09:30 Sodium Biphosphate/ Sodium Phosphate (Fleet Enema) 133 ml DAILY PRN PA CONSTIPATION; Start 11/01/18 at 09:30 Magnesium Hydroxide (Milk Of Mag) 30 ml DAILY PRN PO CONSTIPATION Last administered on 11/01/18at 11:17; Admin Dose 30 ML; Start 11/01/18 at 09:30 Assessment/Plan Hospital Course (Demo Recall) 68 y/o male pmh HTN, gout, HLD s/p cervical laminectomy 10/26/2018 for cervical myelopathy c/b hyperglycemia 2/2 steroids and residual upper extremity weakness, R/L, improving. Planned for rehab transfer after drain removed. Assessment/Plan (Daily) #s/p cervical decompression with laminectomy. improving. -judicious pain management -PT #constipation -daily miralax, colace -milk of mag prn, dulcolax suppository prn #HTN -home meds #gout -uloric #HLD -atorva #MDD -wellbutrin Dispo-after BM will be transferred to acute rehab. KAYLYNN HILL MD Nov 01, 2018 11:45
== END 2018-11-01 15:15 | DRG 519 ==
LOC: EEVIPCON → REC 05:11 → ICU 10:36 → MS1 10-27 16:31
PROVIDERS: ADMIT Neurological Surgery; ATTEND Neurological Surgery
PROC: 00NW0ZZ Release Cervical Spinal Cord, Open Approach (ICD-10-PCS; principal; 2018-10-26 07:00)
DX: M48.02 Spinal stenosis, cervical region (principal); G99.2 Myelopathy in diseases classified elsewhere; G95.20 Unspecified cord compression; M62.81 Muscle weakness (generalized); E78.5 Hyperlipidemia, unspecified; K59.00 Constipation, unspecified; M54.12 Radiculopathy, cervical region; I10 Essential (primary) hypertension; R73.9 Hyperglycemia, unspecified; F32.9 Major depressive disorder, single episode, unspecified; I12.9 Hypertensive chronic kidney disease with stage 1 through stage 4 chronic kidney disease, or unspecified chronic kidney disease; F17.290 Nicotine dependence, other tobacco product, uncomplicated; N18.3 Chronic kidney disease, stage 3 (moderate); K21.0 Gastro-esophageal reflux disease with esophagitis; M10.00 Idiopathic gout, unspecified site; T38.0X5A Adverse effect of glucocorticoids and synthetic analogues, initial encounter
CPT/HCPCS: 72040; 72141; 80048; 81001; 82962; 83036; 83735; 84100; 85025; 86850; 86900; 86901; 87081; 87086; 97110; 97116; 97163; 97165; 97530; 97535; J0690; J1071; J1100; J1170; J1200; J1815; J2250; J2370; J2405; J2765; J3010; J3475; J7030; J7121

== ENCOUNTER 2018-10-31 16:18 | Inpatient (IN) | payer MEDICARE, BC ==
[~2018-10-31] VITALS: Ht 177.8 cm; Wt 97.0 kg
[~2018-10-31 16:18] MED LIST: AMLO1CAP3 PO; BUPR300T48 PO; CRES20 PO; FAMO20TA18 PO; FEBU40TA PO
--- NOTE | 2018-10-31 21:00 | CONS ---
Assessment/Plan Assessment/Plan Assessment/Plan (Daily) seen and examined with Dr Albright approx 1300 awake alert follows moves all sens intact pt improving drain was dced ok for rehab may go to rehab artemio Consultation Date/Type/Reason Admit Date/Time Initial Consult Date Date/Time of Note DATE: 10/31/18 TIME: 20:58 ARNOLDO AKERS PA-C Oct 31, 2018 21:00
--- NOTE | 2018-11-01 12:06 | PN ---
Date/Time of Note Date/Time of Note DATE: 11/01/18 TIME: 12:04 Subjective 24 Hr Interval Summary The patient is postop day #6 following a multilevel cervical decompressive laminectomy from C3-C6. He is resting comfortably in bed. A soft cervical collar is in place. His dressing is intact. Neurovascular structures are intact distally. He has been able to walk in the hallway without his walker. 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 He has not moved his bowels since surgery, and has been given a number of medications to facilitate a bowel movement. It is anticipated that he will be transferred to the rehab unit today for continued postoperative rehabilitation. FIORELLA FIGUEROA MD Nov 01, 2018 12:06
[2018-11-01 15:45] VITALS: BP 125/62; PULSE 67; RESP 18
[2018-11-01] MEDS ORDERED: NA PHOSPHATE/BIPHOS 133 ML ENEMA PR PRN (16:00)
[2018-11-01] MEDS ORDERED: HYDROCODONE/APAP (10/325) TAB PO PRN ×2 (16:00)
[2018-11-01] MEDS ORDERED: BISACODYL 10 MG SUPP PR PRN (16:00)
[2018-11-01] MEDS ORDERED: PENDING SANTYL ORDER FOR WOUND CARE XX PRN (16:00)
[2018-11-01] MEDS ORDERED: BACLOFEN 10 MG TAB PO PRN (16:00)
[2018-11-01] MEDS ORDERED: ONDANSETRON 4 MG INJ IV PRN (16:00)
[2018-11-01] MEDS ORDERED: CYCLOBENZAPRINE 10 MG TAB PO PRN (16:00)
[2018-11-01] MEDS: ACETAMINOPHEN 500 MG TAB PO PRN (17:56)
[2018-11-01 20:00] VITALS: BP 122/64; PULSE 68; RESP 18
[2018-11-01] MEDS: SENNA TAB PO SCH (20:14)
[2018-11-01] MEDS: FAMOTIDINE 20 MG TAB PO SCH (20:14)
[2018-11-01] MEDS: TAMSULOSIN (SR) 0.4 MG CAP PO SCH (20:14)
[2018-11-01] MEDS: DOCUSATE SODIUM 100 MG CAP PO SCH (20:14)
[2018-11-01] MEDS: ATORVASTATIN 40 MG TAB PO SCH (20:15)
[2018-11-01] MEDS: ZOLPIDEM 5 MG TAB PO PRN (21:58)
[2018-11-02 07:30] VITALS: BP 113/68; PULSE 69; RESP 18
[2018-11-02] MEDS: POLYETHYLENE GLYCOL 17 GM PACKET PO SCH (08:17)
[2018-11-02 08:18] VITALS: BP 113/68; PULSE 69; RESP 18
[2018-11-02] MEDS: AMLODIPINE 5 MG TAB PO SCH (08:18)
[2018-11-02] MEDS: ACETAMINOPHEN 500 MG TAB PO PRN ×2 (08:18→15:42)
[2018-11-02] MEDS: FAMOTIDINE 20 MG TAB PO SCH ×2 (08:18→21:22)
[2018-11-02] MEDS: BENAZEPRIL 40 MG TAB PO SCH (08:18)
[2018-11-02] MEDS: FEBUXOSTAT 40 MG TABLET PO SCH (08:18)
[2018-11-02] MEDS: BUPROPION (XL) 150 MG TAB PO SCH (08:18)
[2018-11-02] MEDS: DOCUSATE SODIUM 100 MG CAP PO SCH ×2 (08:19→21:22)
--- NOTE | 2018-11-02 13:16 | CONS ---
Assessment/Plan Assessment/Plan Assessment/Plan (Daily) 1. Post op cx spine surgery with improving upper extrem weakness 2. BP is controlled 3. Mild hypernatremia, prob sec to pain, Cyndie ordered, tsh, uric acid 4. Elev CHO, better since steroids were dc'd Consultation Date/Type/Reason Admit Date/Time Nov 01, 2018 at 15:30 Initial Consult Date Date/Time of Note DATE: 11/02/18 TIME: 13:13 Detailed Summary Respiratory: No cough, No shortness of breath Cardiovascular: no complaints, edema Gastrointestinal: other (constipated) Genitourinary: no complaints Musculoskeletal: neck pain (mild) Neurologic: other (upper extrem are stonger) Exam/Review of Systems Exam Vitals Vital Signs Date Temp Pulse Resp B/P (MAP) Pulse Ox O2 O2 Flow FiO2 Time Delivery Rate 11/02/18 98.4 69 18 113/68 96 Room Air 08:18 (83) Intake and Output 11/01/18 11/01/18 11/02/18 1515:00 23:00 07:00 IntakeIntake Total 360 ml OutputOutput Total 500 ml BalanceBalance 360 ml -500 ml Neck: No jvd Respiratory: clear to auscultation Cardiovascular: regular rate and rhythm Gastrointestinal: soft Extremities: No edema, No tenderness Neurological: other (upper extrem are stronger) Results Result Diagram: 11/02/18 0849 11/02/18 0849 Results 24hrs Laboratory Tests Test 11/02/18 08:49 White Blood Count 12.0 H Red Blood Count 4.64 L Hemoglobin 14.0 Hematocrit 40.8 L Mean Corpuscular Volume 87.9 Mean Corpuscular Hemoglobin 30.2 Mean Corpuscular Hemoglobin Concent 34.3 Red Cell Distribution Width 12.4 Platelet Count 223 Mean Platelet Volume 10.1 Immature Granulocytes % 1.100 H Neutrophils % 78.7 H Lymphocytes % 9.3 L Monocytes % 9.4 Eosinophils % 1.3 Basophils % 0.2 Nucleated Red Blood Cells % 0.0 Immature Granulocytes # 0.130 H Neutrophils # 9.4 H Lymphocytes # 1.1 Monocytes # 1.1 H Eosinophils # 0.2 Basophils # 0.0 Nucleated Red Blood Cells # 0.0 Sodium Level 132 L Potassium Level 4.6 Chloride Level 101 Carbon Dioxide Level 23 Anion Gap 8 Blood Urea Nitrogen 27 H Creatinine 1.20 Est Glomerular Filtrat Rate mL/min > 60 Glucose Level 154 Calcium Level 7.9 L Total Bilirubin 0.9 Direct Bilirubin 0.00 Indirect Bilirubin 0.9 Aspartate Amino Transf (AST/SGOT) 18 Alanine Aminotransferase (ALT/SGPT) 35 Alkaline Phosphatase 37 L Total Protein 5.5 L Albumin 3.1 L Globulin 2.40 Albumin/Globulin Ratio 1.29 Medications Medication Current Medications Docusate Sodium (Colace) 100 mg BID PO Last administered on 11/02/18at 08:19; Admin Dose 100 MG; Start 11/01/18 at 21:00 Senna (Senokot) 1 tab HS PO Last administered on 11/01/18at 20:14; Admin Dose 1 TAB; Start 11/01/18 at 21:00 Magnesium Hydroxide (Milk Of Mag) 30 ml BID PRN PO CONSTIPATION; Start 11/01/18 at 16:00 Lactulose (Enulose) 20 gm DAILY PRN PO CONSTIPATION; Start 11/01/18 at 16:00 Bisacodyl (Dulcolax Supp) 10 mg DAILY PRN [place] CONSTIPATION; Start 11/01/18 at 16:00 Acetaminophen (Tylenol Tab) 650 mg Q4H PRN PO MILD PAIN LEVEL 1-3; Start 11/01/18 at 16:00 Miscellaneous Information (Pending [facility] Order For Wound Care) This patient kramer... PRN PRN XX WOUND CARE; Start 11/01/18 at 16:00 Acetaminophen/ Hydrocodone Bitart ([place] (10/325)) 1 tab Q4H PRN PO MODERATE PAIN LEVEL 4-6; Start 11/01/18 at 16:00 Acetaminophen/ Hydrocodone Bitart ([place] (10/325)) 2 tab Q4H PRN PO SEVERE PAIN LEVEL 7-10; Start 11/01/18 at 16:00 Amlodipine Besylate (Norvasc) 5 mg DAILY PO Last administered on 11/02/18at 08:18; Admin Dose 5 MG; Start 11/02/18 at 09:00 Atorvastatin Calcium (Lipitor) 40 mg HS PO ; Start 11/01/18 at 21:00 Baclofen (Lioresal) 5 mg TID PRN PO muscle spasm Last administered on 11/02/18at 08:22; Admin Dose 5 MG; Start 11/01/18 at 16:00 Benazepril HCl (Lotensin) 40 mg DAILY PO Last administered on 11/02/18 08:18; Admin Dose 40 MG; Start 11/02/18 at 09:00 Bupropion HCl (Wellbutrin Xl) 300 mg DAILY PO Last administered on 11/02/18 08:18; Admin Dose 300 MG; Start 11/02/18 at 09:00 Cyclobenzaprine HCl (Flexeril) 10 mg Q8H PRN PO muscles spasm; Start 11/01/18 at 16:00 Famotidine (Pepcid) 20 mg BID PO Last administered on 11/02/18 08:18; Admin Dose 20 MG; Start 11/01/18 at 21:00 Febuxostat (Uloric) 40 mg DAILY PO Last administered on 11/02/18 08:18; Admin Dose 40 MG; Start 11/02/18 at 09:00 Ondansetron HCl (Zofran Inj) 4 mg Q6H PRN IV NAUSEA AND/OR VOMITING; Start 11/01/18 at 16:00 Polyethylene Glycol (Miralax) 17 gm DAILY PO Last administered on 11/02/18at 08:17; Admin Dose 17 GM; Start 11/02/18 at 09:00 Sodium Biphosphate/ Sodium Phosphate (Fleet Enema) 133 ml DAILY PRN [place] CONSTIPATION; Start 11/01/18 at 16:00 Tamsulosin HCl (Flomax) 0.4 mg HS PO Last administered on 11/01/18at 20:14; Admin Dose 0.4 MG; Start 11/01/18 at 21:00 Zolpidem Tartrate (Ambien) 5 mg HS PRN PO INSOMNIA Last administered on 11/01/18at 21:58; Admin Dose 5 MG; Start 11/01/18 at 16:30 Bisacodyl (Dulcolax Supp) 10 mg BEFORE BREAKFAST LA ; Start 11/03/18 at 06:00; Stop 11/06/18 at 05:59 Acetaminophen (Tylenol Tab) 1,000 mg Q4H PRN PO BREAKTHROUGH PAIN; Start at 13:30 VANDANA KESSLER MD Nov 02, 2018 13:16
[2018-11-02 14:00] VITALS: BP 98/54; RESP 20
--- NOTE | 2018-11-02 15:26 | CONS ---
Assessment/Plan Assessment/Plan Assessment/Plan (Daily) seen and examined doing well moves all strength good in all extremities no urinary incontinence wound looks good, dry, dressing was changed cont with pt/ot/rehab Consultation Date/Type/Reason Admit Date/Time Nov 01, 2018 at 15:30 Initial Consult Date Date/Time of Note DATE: 11/02/18 TIME: 15:25 Exam/Review of Systems Exam Vitals Vital Signs Date Temp Pulse Resp B/P (MAP) Pulse Ox O2 O2 Flow FiO2 Time Delivery Rate 11/02/18 98.4 69 18 113/68 96 Room Air 08:18 (83) Intake and Output 11/01/18 11/01/18 11/02/18 1515:00 23:00 07:00 IntakeIntake Total 360 ml OutputOutput Total 500 ml BalanceBalance 360 ml -500 ml Results Result Diagram: 11/02/18 0849 11/02/18 0849 Results 24hrs Laboratory Tests Test 11/02/18 08:49 White Blood Count 12.0 H Red Blood Count 4.64 L Hemoglobin 14.0 Hematocrit 40.8 L Mean Corpuscular Volume 87.9 Mean Corpuscular Hemoglobin 30.2 Mean Corpuscular Hemoglobin Concent 34.3 Red Cell Distribution Width 12.4 Platelet Count 223 Mean Platelet Volume 10.1 Immature Granulocytes % 1.100 H Neutrophils % 78.7 H Lymphocytes % 9.3 L Monocytes % 9.4 Eosinophils % 1.3 Basophils % 0.2 Nucleated Red Blood Cells % 0.0 Immature Granulocytes # 0.130 H Neutrophils # 9.4 H Lymphocytes # 1.1 Monocytes # 1.1 H Eosinophils # 0.2 Basophils # 0.0 Nucleated Red Blood Cells # 0.0 Sodium Level 132 L Potassium Level 4.6 Chloride Level 101 Carbon Dioxide Level 23 Anion Gap 8 Blood Urea Nitrogen 27 H Creatinine 1.20 Est Glomerular Filtrat Rate mL/min > 60 Glucose Level 154 Calcium Level 7.9 L Total Bilirubin 0.9 Direct Bilirubin 0.00 Indirect Bilirubin 0.9 Aspartate Amino Transf (AST/SGOT) 18 Alanine Aminotransferase (ALT/SGPT) 35 Alkaline Phosphatase 37 L Total Protein 5.5 L Albumin 3.1 L Globulin 2.40 Albumin/Globulin Ratio 1.29 Medications Medication Current Medications Docusate Sodium (Colace) 100 mg BID PO Last administered on 11/02/18at 08:19; Admin Dose 100 MG; Start 11/01/18 at 21:00 Senna (Senokot) 1 tab HS PO Last administered on 11/01/18at 20:14; Admin Dose 1 TAB; Start 11/01/18 at 21:00 Magnesium Hydroxide (Milk Of Mag) 30 ml BID PRN PO CONSTIPATION; Start 11/01/18 at 16:00 Lactulose (Enulose) 20 gm DAILY PRN PO CONSTIPATION; Start 11/01/18 at 16:00 Bisacodyl (Dulcolax Supp) 10 mg DAILY PRN [place] CONSTIPATION; Start 11/01/18 at 16:00 Acetaminophen (Tylenol Tab) 650 mg Q4H PRN PO MILD PAIN LEVEL 1-3; Start 11/01/18 at 16:00 Miscellaneous Information ([facility]) This patient kramer... PRN PRN XX WOUND CARE; Start 11/01/18 at 16:00 Acetaminophen/ Hydrocodone Bitart ([place] (10/325)) 1 tab Q4H PRN PO MODERATE PAIN LEVEL 4-6; Start 11/01/18 at 16:00 Acetaminophen/ Hydrocodone Bitart ([place] (10/325)) 2 tab Q4H PRN PO SEVERE PAIN LEVEL 7-10; Start 11/01/18 at 16:00 Amlodipine Besylate (Norvasc) 5 mg DAILY PO Last administered on 11/02/18at 08:18; Admin Dose 5 MG; Start 11/02/18 at 09:00 Atorvastatin Calcium (Lipitor) 40 mg HS PO ; Start 11/01/18 at 21:00 Baclofen (Lioresal) 5 mg TID PRN PO muscle spasm Last administered on 11/02/18at 08:22; Admin Dose 5 MG; Start 11/01/18 at 16:00 Benazepril HCl (Lotensin) 40 mg DAILY PO Last administered on 11/02/18at 08:18; Admin Dose 40 MG; Start 11/02/18 at 09:00 Bupropion HCl (Wellbutrin Xl) 300 mg DAILY PO Last administered on 11/02/18at 08:18; Admin Dose 300 MG; Start 11/02/18 at 09:00 Cyclobenzaprine HCl (Flexeril) 10 mg Q8H PRN PO muscles spasm; Start 7/21/19 at 16:00 Famotidine (Pepcid) 20 mg BID PO Last administered on 11/02/18 08:18; Admin Dose 20 MG; Start 11/01/18 at 21:00 Febuxostat (Uloric) 40 mg DAILY PO Last administered on 11/02/18at 08:18; Admin Dose 40 MG; Start 11/02/18 at 09:00 Ondansetron HCl (Zofran Inj) 4 mg Q6H PRN IV NAUSEA AND/OR VOMITING; Start 11/01/18 at 16:00 Polyethylene Glycol (Miralax) 17 gm DAILY PO Last administered on 11/02/18at 08:17; Admin Dose 17 GM; Start 11/02/18 at 09:00 Sodium Biphosphate/ Sodium Phosphate (Fleet Enema) 133 ml DAILY PRN [place] CONSTIPATION; Start 11/01/18 at 16:00 Tamsulosin HCl (Flomax) 0.4 mg HS PO Last administered on 11/01/18at 20:14; Admin Dose 0.4 MG; Start 11/01/18 at 21:00 Zolpidem Tartrate (Ambien) 5 mg HS PRN PO INSOMNIA Last administered on 11/01/18at 21:58; Admin Dose 5 MG; Start 11/01/18 at 16:30 Bisacodyl (Dulcolax Supp) 10 mg BEFORE BREAKFAST [place] ; Start 11/03/18 at 06:00; Stop 11/06/18 at 05:59 Acetaminophen (Tylenol Tab) 1,000 mg Q4H PRN PO BREAKTHROUGH PAIN; Start 11/02/18 at 13:30 ARNOLDO AKERS PA-C Nov 02, 2018 15:26
--- NOTE | 2018-11-02 16:10 | CONS ---
DATE OF ADMISSION: 11/01/2018 DATE OF CONSULTATION: 11/02/2018 POST-ADMISSION REHABILITATION PHYSICIAN EVALUATION REHABILITATION IMPAIRMENT CATEGORY: Cervical myelopathy with cord compression, status post cervical laminectomy. ACTIVE COMORBIDITIES: 1. Acute pain syndrome. 2. Constipation. 3. Hypertension. 4. History of gout. 5. Depression 6. Impairments in self-care and mobility. HISTORY OF PRESENT ILLNESS: The patient is a 68-year-old right-handed gentleman who had been noting progressing bilateral upper extremity and lower extremity weakness and numbness. Workup did reveal cervical myelopathy with cord compression, and the patient did require decompressive cervical laminectomy performed on 10/26/2018. The patient's postoperative course has been notable for significant pain, constipation, and significant impairments in self-care and mobility as compared to baseline. The patient has been cleared to transfer to the rehabilitation unit for comprehensive interdisciplinary rehab care. FUNCTIONAL HISTORY: Prior to recent events, he was independent in self-care tasks and mobility. Currently, he requires moderate assist for self-care activities and maximal assist for lower body self-care activities and minimal to moderate assist for mobility tasks. I have reviewed the preadmission screen and patient's current functional status is consistent with the preadmission screen. FAMILY AND SOCIAL HISTORY: The patient lives at home alone. He does have an adult son that lives in the area. He lives in a multilevel home. 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 PAST MEDICAL HISTORY: 1. Hypertension. 2. Gout. 3. Hyperlipidemia. 4. Esophagitis. 5. History of left ankle tendon repair. 6. History of right elbow surgery. CURRENT MEDICATIONS: 1. Gallant p.r.n. 2. Norvasc 5 mg p.o. daily. 3. Lipitor 40 mg p.o. daily. 4. Baclofen 5 mg p.o. t.i.d. 5. Lotensin 40 mg p.o. daily. 6. Wellbutrin 300 mg p.o. daily. 7. Flexeril 10 mg p.o. q.8h. p.r.n. 8. Colace 100 mg p.o. b.i.d. 9. Pepcid 20 mg p.o. b.i.d. 10. Insulin sliding scale. 11. Flomax 0.4 mg p.o. at bedtime. 12. Ambien p.r.n. ALLERGIES: THE PATIENT WITH NO KNOWN DRUG ALLERGIES. PHYSICAL EXAMINATION: VITAL SIGNS: He is currently afebrile with stable vital signs. HEENT: Extraocular motions are intact. Oropharynx is clear. LUNGS: Clear anteriorly. CARDIAC: S1, S2. ABDOMEN: Soft, nontender, positive bowel sounds. NEUROLOGIC: He is awake and alert. He is oriented x4. He demonstrates 4+ strength in bilateral upper extremities. His fine finger movement is slightly worse in the right upper extremity. He demonstrates 4+ strength in bilateral lower extremities. He has impaired dynamic balance. PLAN: The patient has been admitted for comprehensive interdisciplinary acute rehab and is anticipated to tolerate 3 hours of daily therapy in divided doses for at least 5/7 days a week. The treatment plan will include: 1. Physical therapy to focus on bed mobility, transfers, and household ambulation with the goal of having the patient reach a supervised to modified independent level. 2. Occupational therapy to focus on hygiene, grooming, dressing, bathing, and toileting activities with the goal of having the patient reach a supervised to modified independent level. 3. Rehabilitation nursing for carryover of therapeutic interventions, the goal of continent of bowel and bladder, the goal of pain adequately managed on oral medications, and patient education with regard to the aforementioned issues. Will check PVR to assess for possible neurogenic bladder/urinary retention 4. Neuropsychology with Dr. Leary for assistance with adjustment to disease process ESTIMATED LENGTH OF STAY: 12 days. DISPOSITION GOAL: Home. Patient reports he will be able to hire a caregiver. REHABILITATION BARRIER: Pain and multilevel home. INTERVENTION FOR BARRIER: Interdisciplinary rehab. I acknowledge that I performed a full physical examination on this patient within 24 hours of admission to the rehabilitation unit. I believe the patient is an excellent candidate for comprehensive interdisciplinary rehab care and is anticipated to make reasonable goals in a reasonable period of time as outlined above. Dictated By: ERWIN OMER/PUJA Conf#: [id number] DID#: [id number] MTDD
[2018-11-02 20:26] VITALS: BP 123/63; PULSE 69; RESP 18
[2018-11-02] MEDS: ZOLPIDEM 5 MG TAB PO PRN (21:22)
[2018-11-02] MEDS: SENNA TAB PO SCH (21:22)
[2018-11-02] MEDS: ATORVASTATIN 40 MG TAB PO SCH (21:22)
[2018-11-02] MEDS: TAMSULOSIN (SR) 0.4 MG CAP PO SCH (21:22)
[2018-11-03] MEDS: ACETAMINOPHEN 500 MG TAB PO PRN ×2 (05:29→18:24)
[2018-11-03 07:00] VITALS: BP 107/67; PULSE 69; RESP 18
[2018-11-03] MEDS: FAMOTIDINE 20 MG TAB PO SCH ×2 (08:48→20:49)
[2018-11-03] MEDS: POLYETHYLENE GLYCOL 17 GM PACKET PO SCH ×2 (08:48→08:53)
[2018-11-03] MEDS: DOCUSATE SODIUM 100 MG CAP PO SCH ×2 (08:48→20:48)
[2018-11-03] MEDS: BUPROPION (XL) 150 MG TAB PO SCH (08:48)
[2018-11-03] MEDS: FEBUXOSTAT 40 MG TABLET PO SCH (08:48)
--- NOTE | 2018-11-03 08:48 | CONS ---
Assessment/Plan Assessment/Plan Assessment/Plan (Daily) 1. Post op cx spine surgery with continued improvement in strength upper and lower extrem 2. Mild hyponatremia sec to pain (siadh), labs pending today 3. BP is controlled 4. Bladder dysfx, mild with post void residual 140 cc yesterday, will reeval today, on flomax Consultation Date/Type/Reason Admit Date/Time Nov 01, 2018 at 15:30 Initial Consult Date Date/Time of Note DATE: 11/03/18 TIME: 08:45 Detailed Summary Respiratory: No cough, No shortness of breath Cardiovascular: No chest pain Gastrointestinal: other (no bm but not uncomfortable) Genitourinary: no complaints Musculoskeletal: neck pain (mild) Neurologic: other (upp extrem are stronger and balance is better) Exam/Review of Systems Exam Vitals Vital Signs Date Temp Pulse Resp B/P (MAP) Pulse Ox O2 O2 Flow FiO2 Time Delivery Rate 11/02/18 98.1 69 18 123/63 95 Room Air 20:26 (83) Intake and Output 11/02/18 11/02/18 11/03/18 1515:00 23:00 07:00 IntakeIntake Total 200 ml 1400 ml 250 ml OutputOutput Total 450 ml 970 ml 1450 ml BalanceBalance -250 ml 430 ml -1200 ml Neck: No jvd Respiratory: clear to auscultation Cardiovascular: regular rate and rhythm Gastrointestinal: soft Extremities: No edema, No pitting pedal edema, No tenderness Results Result Diagram: 11/02/18 0849 11/02/18 0849 Results 24hrs Laboratory Tests Test 11/02/18 08:49 11/02/18 16:24 White Blood Count 12.0 H Red Blood Count 4.64 L Hemoglobin 14.0 Hematocrit 40.8 L Mean Corpuscular Volume 87.9 Mean Corpuscular Hemoglobin 30.2 Mean Corpuscular Hemoglobin Concent 34.3 Red Cell Distribution Width 12.4 Platelet Count 223 Mean Platelet Volume 10.1 Immature Granulocytes % 1.100 H Neutrophils % 78.7 H Lymphocytes % 9.3 L Monocytes % 9.4 Eosinophils % 1.3 Basophils % 0.2 Nucleated Red Blood Cells % 0.0 Immature Granulocytes # 0.130 H Neutrophils # 9.4 H Lymphocytes # 1.1 Monocytes # 1.1 H Eosinophils # 0.2 Basophils # 0.0 Nucleated Red Blood Cells # 0.0 Sodium Level 132 L Potassium Level 4.6 Chloride Level 101 Carbon Dioxide Level 23 Anion Gap 8 Blood Urea Nitrogen 27 H Creatinine 1.20 Est Glomerular Filtrat Rate mL/min > 60 Glucose Level 154 Calcium Level 7.9 L Total Bilirubin 0.9 Direct Bilirubin 0.00 Indirect Bilirubin 0.9 Aspartate Amino Transf (AST/SGOT) 18 Alanine Aminotransferase (ALT/SGPT) 35 Alkaline Phosphatase 37 L Total Protein 5.5 L Albumin 3.1 L Globulin 2.40 Albumin/Globulin Ratio 1.29 Urine Random Sodium 100 H Medications Medication Current Medications Docusate Sodium (Colace) 100 mg BID PO Last administered on 11/02/18at 21:22; Admin Dose 100 MG; Start 11/01/18 at 21:00 Senna (Senokot) 1 tab HS PO Last administered on 11/02/18at 21:22; Admin Dose 1 TAB; Start 11/01/18 at 21:00 Magnesium Hydroxide (Milk Of Mag) 30 ml BID PRN PO CONSTIPATION; Start 11/01/18 at 16:00 Lactulose (Enulose) 20 gm DAILY PRN PO CONSTIPATION; Start 11/01/18 at 16:00 Bisacodyl (Dulcolax Supp) 10 mg DAILY PRN [place] CONSTIPATION; Start 11/01/18 at 16:00 Acetaminophen (Tylenol Tab) 650 mg Q4H PRN PO MILD PAIN LEVEL 1-3; Start 11/01/18 at 16:00 Miscellaneous Information (Pending [facility] Order For Wound Care) This patient kramer... PRN PRN XX WOUND CARE; Start 11/01/18 at 16:00 Acetaminophen/ Hydrocodone Bitart ([place] (10/325)) 1 tab Q4H PRN PO MODERATE PAIN LEVEL 4-6; Start 11/01/18 at 16:00 Acetaminophen/ Hydrocodone Bitart ([place] (10/325)) 2 tab Q4H PRN PO SEVERE PAIN LEVEL 7-10; Start 11/01/18 at 16:00 Amlodipine Besylate (Norvasc) 5 mg DAILY PO Last administered on 11/02/18at 0 8:18; Admin Dose 5 MG; Start 11/02/18 at 09:00 Atorvastatin Calcium (Lipitor) 40 mg HS PO Last administered on 11/02/18at 21:22; Admin Dose 40 MG; Start 11/01/18 at 21:00 Baclofen (Lioresal) 5 mg TID PRN PO muscle spasm Last administered on 11/02/18 08:22; Admin Dose 5 MG; Start 11/01/18 at 16:00 Benazepril HCl (Lotensin) 40 mg DAILY PO Last administered on 11/02/18 08:18; Admin Dose 40 MG; Start 11/02/18 at 09:00 Bupropion HCl (Wellbutrin Xl) 300 mg DAILY PO Last administered on 11/02/18 08:18; Admin Dose 300 MG; Start 11/02/18 at 09:00 Cyclobenzaprine HCl (Flexeril) 10 mg Q8H PRN PO muscles spasm; Start 11/01/18 at 16:00 Famotidine (Pepcid) 20 mg BID PO Last administered on 11/02/18 21:22; Admin Dose 20 MG; Start 11/01/18 at 21:00 Febuxostat (Uloric) 40 mg DAILY PO Last administered on 11/02/18 08:18; Admin Dose 40 MG; Start 11/02/18 at 09:00 Ondansetron HCl (Zofran Inj) 4 mg Q6H PRN IV NAUSEA AND/OR VOMITING; Start 11/01/18 at 16:00 Polyethylene Glycol (Miralax) 17 gm DAILY PO Last administered on 11/02/18at 08:17; Admin Dose 17 GM; Start 11/02/18 at 09:00 Sodium Biphosphate/ Sodium Phosphate (Fleet Enema) 133 ml DAILY PRN [place] CONSTIPATION; Start 11/01/18 at 16:00 Tamsulosin HCl (Flomax) 0.4 mg HS PO Last administered on 11/02/18 21:22; Admin Dose 0.4 MG; Start 11/01/18 at 21:00 Zolpidem Tartrate (Ambien) 5 mg HS PRN PO INSOMNIA Last administered on 11/02/18 21:22; Admin Dose 5 MG; Start 11/01/18 at 16:30 Bisacodyl (Dulcolax Supp) 10 mg BEFORE BREAKFAST [place] ; Start 11/03/18 at 06:00; Stop 11/06/18 at 05:59 Acetaminophen (Tylenol Tab) 1,000 mg Q4H PRN PO BREAKTHROUGH PAIN Last administered on 11/03/18at 05:29; Admin Dose 1,000 MG; Start 11/02/18 at 13:30 VANDANA KESSLER MD Nov 03, 2018 08:48
[2018-11-03] MEDS: BENAZEPRIL 40 MG TAB PO SCH (08:51)
[2018-11-03] MEDS: BISACODYL 10 MG SUPP PR SCH ×2 (08:51→10:31)
[2018-11-03] MEDS: AMLODIPINE 5 MG TAB PO SCH (08:51)
[2018-11-03 14:00] VITALS: BP_SYST 108; BP_SYST 138; BP_DIAS 59; BP_DIAS 61; PULSE 77; PULSE 79; RESP 18
--- NOTE | 2018-11-03 15:26 | PN ---
Date/Time of Note Date/Time of Note DATE: 11/03/18 TIME: 15:24 Subjective Feeling better today. Some results with bowel program Objective Vital Signs Date Temp Pulse Resp B/P (MAP) Pulse Ox O2 O2 Flow FiO2 Time Delivery Rate 11/03/18 98.2 69 18 107/67 98 Room Air 07:00 (80) Intake and Output 11/02/18 11/02/18 11/03/18 1515:00 23:00 07:00 IntakeIntake Total 200 ml 1400 ml 250 ml OutputOutput Total 450 ml 970 ml 1450 ml BalanceBalance -250 ml 430 ml -1200 ml Exam pulm-cta abd-soft cga 100 feet Results/Medications Result Diagram: 11/02/18 0849 11/03/18 1013 Results 24 hrs Laboratory Tests Test 11/02/18 16:24 11/03/18 10:13 Urine Random Sodium 100 H Sodium Level 137 Potassium Level 4.7 Chloride Level 103 Carbon Dioxide Level 25 Anion Gap 9 Blood Urea Nitrogen 23 H Creatinine 1.32 H Est Glomerular Filtrat Rate mL/min 54 L Glucose Level 117 Uric Acid 3.8 Calcium Level 8.4 Thyroid Stimulating Hormone (TSH) 2.980 Medications Current Medications Docusate Sodium (Colace) 100 mg BID PO Last administered on 11/03/18at 08:48; Admin Dose 100 MG; Start 11/01/18 at 21:00 Senna (Senokot) 1 tab HS PO Last administered on 11/02/18at 21:22; Admin Dose 1 TAB; Start 11/01/18 at 21:00 Magnesium Hydroxide (Milk Of Mag) 30 ml BID PRN PO CONSTIPATION; Start 11/01/18 at 16:00 Lactulose (Enulose) 20 gm DAILY PRN PO CONSTIPATION; Start 11/01/18 at 16:00 Bisacodyl (Dulcolax Supp) 10 mg DAILY PRN [place] CONSTIPATION; Start 11/01/18 at 16:00 Acetaminophen (Tylenol Tab) 650 mg Q4H PRN PO MILD PAIN LEVEL 1-3; Start 11/01/18 at 16:00 Miscellaneous Information (Pending [facility] Order For Wound Care) This patient kramer... PRN PRN XX WOUND CARE; Start 11/01/18 at 16:00 Acetaminophen/ Hydrocodone Bitart ([place] (10325)) 1 tab Q4H PRN PO MODERATE PAIN LEVEL 4-6; Start 11/01/18 at 16:00 Acetaminophen/ Hydrocodone Bitart ([place] (10/325)) 2 tab Q4H PRN PO SEVERE PAIN LEVEL 7-10; Start 11/01/18 at 16:00 Amlodipine Besylate (Norvasc) 5 mg DAILY PO Last administered on 11/03/18 08:51; Admin Dose 5 MG; Start 11/02/18 at 09:00 Atorvastatin Calcium (Lipitor) 40 mg HS PO Last administered on 11/02/18 21:22; Admin Dose 40 MG; Start 11/01/18 at 21:00 Baclofen (Lioresal) 5 mg TID PRN PO muscle spasm Last administered on 11/02/18 08:22; Admin Dose 5 MG; Start 11/01/18 at 16:00 Benazepril HCl (Lotensin) 40 mg DAILY PO Last administered on 11/03/18 08:51; Admin Dose 40 MG; Start 11/02/18 at 09:00 Bupropion HCl (Wellbutrin Xl) 300 mg DAILY PO Last administered on 11/03/18 08:48; Admin Dose 300 MG; Start 11/02/18 at 09:00 Cyclobenzaprine HCl (Flexeril) 10 mg Q8H PRN PO muscles spasm; Start 11/01/18 at 16:00 Famotidine (Pepcid) 20 mg BID PO Last administered on 11/03/18 08:48; Admin Dose 20 MG; Start 11/01/18 at 21:00 Febuxostat (Uloric) 40 mg DAILY PO Last administered on 11/03/18 08:48; Admin Dose 40 MG; Start 11/02/18 at 09:00 Ondansetron HCl (Zofran Inj) 4 mg Q6H PRN IV NAUSEA AND/OR VOMITING; Start 11/01/18 at 16:00 Polyethylene Glycol (Miralax) 17 gm DAILY PO Last administered on 11/02/18 08:17; Admin Dose 17 GM; Start 11/02/18 at 09:00 Sodium Biphosphate/ Sodium Phosphate (Fleet Enema) 133 ml DAILY PRN [place] CONSTIPATION; Start 11/01/18 at 16:00 Tamsulosin HCl (Flomax) 0.4 mg HS PO Last administered on 7/22/19at 21:22; Admin Dose 0.4 MG; Start 11/01/18 at 21:00 Zolpidem Tartrate (Ambien) 5 mg HS PRN PO INSOMNIA Last administered on 11/02/18at 21:22; Admin Dose 5 MG; Start 11/01/18 at 16:30 Bisacodyl (Dulcolax Supp) 10 mg BEFORE BREAKFAST [place] Last administered on 11/03/18 10:31; Admin Dose 10 MG; Start 11/03/18 at 06:00; Stop 11/06/18 at 05:59 Acetaminophen (Tylenol Tab) 1,000 mg Q4H PRN PO BREAKTHROUGH PAIN Last administered on 11/03/18 05:29; Admin Dose 1,000 MG; Start 11/02/18 at 13:30 Assessment/Plan Additional Assessment/Plan Rehab- Cervical myelopathy with cord compression, status post cervical [place] ctomy. Progressing well with rehab Acute pain syndrome- doing well on minimal pain meds Constipation- results with bowel program Hypertension. History of gout. Depression ERWIN KWOK MD Nov 03, 2018 15:26
[2018-11-03] MEDS: SENNA TAB PO SCH (20:48)
[2018-11-03] MEDS: ATORVASTATIN 40 MG TAB PO SCH (20:49)
[2018-11-03] MEDS: TAMSULOSIN (SR) 0.4 MG CAP PO SCH (20:49)
[2018-11-03] MEDS: ZOLPIDEM 5 MG TAB PO PRN (20:49)
[2018-11-03 22:00] VITALS: BP 125/72; PULSE 73; RESP 18
[2018-11-04] MEDS: ACETAMINOPHEN 325 MG TAB PO PRN ×2 (04:16→10:42)
[2018-11-04] MEDS: BISACODYL 10 MG SUPP PR SCH (06:43)
[2018-11-04 07:00] VITALS: BP 126/70; PULSE 68; RESP 18
[2018-11-04] MEDS: BUPROPION (XL) 150 MG TAB PO SCH (08:30)
[2018-11-04] MEDS: FEBUXOSTAT 40 MG TABLET PO SCH (08:30)
[2018-11-04] MEDS: DOCUSATE SODIUM 100 MG CAP PO SCH ×2 (08:30→21:08)
[2018-11-04] MEDS: AMLODIPINE 5 MG TAB PO SCH (08:31)
[2018-11-04] MEDS: BENAZEPRIL 40 MG TAB PO SCH (08:31)
[2018-11-04] MEDS: FAMOTIDINE 20 MG TAB PO SCH ×2 (08:34→21:09)
[2018-11-04] MEDS: POLYETHYLENE GLYCOL 17 GM PACKET PO SCH (08:34)
--- NOTE | 2018-11-04 08:50 | CONS ---
Assessment/Plan Assessment/Plan Assessment/Plan (Daily) 1. Post op cx spine surgery with paresis improving, rev with spine ortho 2. Hyponatremia has resolved 3. Constipation, lactulose given this am 4. Labs rev 5. Cont OT/PT Consultation Date/Type/Reason Admit Date/Time Nov 01, 2018 at 15:30 Initial Consult Date Date/Time of Note DATE: 11/04/18 TIME: 08:48 Detailed Summary Respiratory: No shortness of breath Cardiovascular: No chest pain, No lightheadedness Gastrointestinal: other (NO BM but not uncomfortable) Genitourinary: no complaints Musculoskeletal: neck pain (mild) Exam/Review of Systems Exam Vitals Vital Signs Date Temp Pulse Resp B/P (MAP) Pulse Ox O2 O2 Flow FiO2 Time Delivery Rate 11/03/18 97.6 73 18 125/72 97 Room Air 22:00 (89) Intake and Output 11/03/18 11/03/18 11/04/18 1515:00 23:00 07:00 IntakeIntake Total 1900 ml OutputOutput Total 400 ml 1000 ml BalanceBalance -400 ml 900 ml Neck: No jvd Respiratory: clear to auscultation Cardiovascular: regular rate and rhythm Gastrointestinal: soft, nl liver, spleen Extremities: No edema Neurological: other (weakness right>left upper extrem) Results Result Diagram: 11/02/18 0849 11/03/18 1013 Results 24hrs Laboratory Tests Test 11/03/18 10:13 Sodium Level 137 Potassium Level 4.7 Chloride Level 103 Carbon Dioxide Level 25 Anion Gap 9 Blood Urea Nitrogen 23 H Creatinine 1.32 H Est Glomerular Filtrat Rate mL/min 54 L Glucose Level 117 Uric Acid 3.8 Calcium Level 8.4 Thyroid Stimulating Hormone (TSH) 2.980 Medications Medication Current Medications Docusate Sodium (Colace) 100 mg BID PO Last administered on 11/04/18at 08:30; Admin Dose 100 MG; Start 11/01/18 at 21:00 Senna (Senokot) 1 tab HS PO Last administered on 11/03/18at 20:48; Admin Dose 1 TAB; Start 11/01/18 at 21:00 Magnesium Hydroxide (Milk Of Mag) 30 ml BID PRN PO CONSTIPATION; Start 11/01/18 at 16:00 Lactulose (Enulose) 20 gm DAILY PRN PO CONSTIPATION; Start 11/01/18 at 16:00 Bisacodyl (Dulcolax Supp) 10 mg DAILY PRN [place] CONSTIPATION; Start 11/01/18 at 16:00 Acetaminophen (Tylenol Tab) 650 mg Q4H PRN PO MILD PAIN LEVEL 1-3 Last administered on 11/04/18at 04:16; Admin Dose 650 MG; Start 11/01/18 at 16:00 Miscellaneous Information (Pending Santyl Order For Wound Care) This patient kramer... PRN PRN XX WOUND CARE; Start 11/01/18 at 16:00 Acetaminophen/ Hydrocodone Bitart ([place] (10/325)) 1 tab Q4H PRN PO MODERATE PAIN LEVEL 4-6; Start 11/01/18 at 16:00 Acetaminophen/ Hydrocodone Bitart ([place] (10/325)) 2 tab Q4H PRN PO SEVERE PAIN LEVEL 7-10; Start 11/01/18 at 16:00 Amlodipine Besylate (Norvasc) 5 mg DAILY PO Last administered on 11/04/18 08:31; Admin Dose 5 MG; Start 11/02/18 at 09:00 Atorvastatin Calcium (Lipitor) 40 mg HS PO Last administered on 11/03/18at 20:49; Admin Dose 40 MG; Start 11/01/18 at 21:00 Baclofen (Lioresal) 5 mg TID PRN PO muscle spasm Last administered on 11/02/18 08:22; Admin Dose 5 MG; Start 11/01/18 at 16:00 Benazepril HCl (Lotensin) 40 mg DAILY PO Last administered on 11/04/18 08:31; Admin Dose 40 MG; Start 11/02/18 at 09:00 Bupropion HCl (Wellbutrin Xl) 300 mg DAILY PO Last administered on 11/04/18 08:30; Admin Dose 300 MG; Start 11/02/18 at 09:00 Cyclobenzaprine HCl (Flexeril) 10 mg Q8H PRN PO muscles spasm; Start 11/01/18 at 16:00 Famotidine (Pepcid) 20 mg BID PO Last administered on 11/04/18 08:34; Admin Dose 20 MG; Start 11/01/18 at 21:00 Febuxostat (Uloric) 40 mg DAILY PO Last administered on 7/24/19at 08:30; Admin Dose 40 MG; Start 11/02/18 at 09:00 Ondansetron HCl (Zofran Inj) 4 mg Q6H PRN IV NAUSEA AND/OR VOMITING; Start 11/01/18 at 16:00 Polyethylene Glycol (Miralax) 17 gm DAILY PO Last administered on 11/04/18 08:34; Admin Dose 17 GM; Start 11/02/18 at 09:00 Sodium Biphosphate/ Sodium Phosphate (Fleet Enema) 133 ml DAILY PRN [place] CONSTIPATION; Start 11/01/18 at 16:00 Tamsulosin HCl (Flomax) 0.4 mg HS PO Last administered on 11/03/18 20:49; Admin Dose 0.4 MG; Start 11/01/18 at 21:00 Zolpidem Tartrate (Ambien) 5 mg HS PRN PO INSOMNIA Last administered on 11/03/18 20:49; Admin Dose 5 MG; Start 11/01/18 at 16:30 Bisacodyl (Dulcolax Supp) 10 mg BEFORE BREAKFAST [place] Last administered on 11/04/18at 06:43; Admin Dose 10 MG; Start 11/03/18 at 06:00; Stop 11/06/18 at 05:59 Acetaminophen (Tylenol Tab) 1,000 mg Q4H PRN PO BREAKTHROUGH PAIN Last administered on 11/03/18at 18:24; Admin Dose 1,000 MG; Start 11/02/18 at 13:30 VANDANA KESSLER MD Nov 04, 2018 08:50
[2018-11-04] MEDS ORDERED: LACTULOSE 30ML CUP PO ONE (09:00)
[2018-11-04 14:00] VITALS: BP 120/76; PULSE 60; RESP 18
--- NOTE | 2018-11-04 15:13 | PN ---
Date/Time of Note Date/Time of Note DATE: 11/04/18 TIME: 15:11 Subjective Patient feels "more clumsy" today Objective Vital Signs Date Temp Pulse Resp B/P (MAP) Pulse Ox O2 O2 Flow FiO2 Time Delivery Rate 11/04/18 97.6 68 18 126/70 Room Air 07:00 (88) 11/03/18 97 22:00 Intake and Output 11/03/18 11/03/18 11/04/18 1515:00 23:00 07:00 IntakeIntake Total 1900 ml OutputOutput Total 400 ml 1000 ml BalanceBalance -400 ml 900 ml Exam grossly no change in motor strength cga transfer cga ambulation 100 feet Results/Medications Result Diagram: 11/02/18 0849 11/03/18 1013 Medications Current Medications Docusate Sodium (Colace) 100 mg BID PO Last administered on 11/04/18at 08:30; Admin Dose 100 MG; Start 11/01/18 at 21:00 Senna (Senokot) 1 tab HS PO Last administered on 11/03/18at 20:48; Admin Dose 1 TAB; Start 11/01/18 at 21:00 Magnesium Hydroxide (Milk Of Mag) 30 ml BID PRN PO CONSTIPATION; Start 11/01/18 at 16:00 Lactulose (Enulose) 20 gm DAILY PRN PO CONSTIPATION; Start 11/01/18 at 16:00 Bisacodyl (Dulcolax Supp) 10 mg DAILY PRN [place] CONSTIPATION; Start 11/01/18 at 16:00 Acetaminophen (Tylenol Tab) 650 mg Q4H PRN PO MILD PAIN LEVEL 1-3 Last administered on 11/04/18at 10:42; Admin Dose 650 MG; Start 11/01/18 at 16:00 Miscellaneous Information (Pending Santyl Order For Wound Care) This patient kramer... PRN PRN XX WOUND CARE; Start 11/01/18 at 16:00 Acetaminophen/ Hydrocodone Bitart ([place] (10/325)) 1 tab Q4H PRN PO MODERATE PAIN LEVEL 4-6; Start 11/01/18 at 16:00 Acetaminophen/ Hydrocodone Bitart ([place] (10/325)) 2 tab Q4H PRN PO SEVERE PAIN LEVEL 7-10; Start 11/01/18 at 16:00 Amlodipine Besylate (Norvasc) 5 mg DAILY PO Last administered on 11/04/18 08:3 1; Admin Dose 5 MG; Start 11/02/18 at 09:00 Atorvastatin Calcium (Lipitor) 40 mg HS PO Last administered on 11/03/18 20:49; Admin Dose 40 MG; Start 11/01/18 at 21:00 Baclofen (Lioresal) 5 mg TID PRN PO muscle spasm Last administered on 11/02/18 08:22; Admin Dose 5 MG; Start 11/01/18 at 16:00 Benazepril HCl (Lotensin) 40 mg DAILY PO Last administered on 11/04/18 08:31; Admin Dose 40 MG; Start 11/02/18 at 09:00 Bupropion HCl (Wellbutrin Xl) 300 mg DAILY PO Last administered on 11/04/18 08:30; Admin Dose 300 MG; Start 11/02/18 at 09:00 Cyclobenzaprine HCl (Flexeril) 10 mg Q8H PRN PO muscles spasm; Start 11/01/18 at 16:00 Famotidine (Pepcid) 20 mg BID PO Last administered on 11/04/18 08:34; Admin Dose 20 MG; Start 11/01/18 at 21:00 Febuxostat (Uloric) 40 mg DAILY PO Last administered on 11/04/18 08:30; Admin Dose 40 MG; Start 11/02/18 at 09:00 Ondansetron HCl (Zofran Inj) 4 mg Q6H PRN IV NAUSEA AND/OR VOMITING; Start 11/01/18 at 16:00 Polyethylene Glycol (Miralax) 17 gm DAILY PO Last administered on 11/04/18 08:34; Admin Dose 17 GM; Start 11/02/18 at 09:00 Sodium Biphosphate/ Sodium Phosphate (Fleet Enema) 133 ml DAILY PRN [place] CONSTIPATION; Start 11/01/18 at 16:00 Tamsulosin HCl (Flomax) 0.4 mg HS PO Last administered on 11/03/18 20:49; Admin Dose 0.4 MG; Start 11/01/18 at 21:00 Zolpidem Tartrate (Ambien) 5 mg HS PRN PO INSOMNIA Last administered on 11/03/18 20:49; Admin Dose 5 MG; Start 11/01/18 at 16:30 Bisacodyl (Dulcolax Supp) 10 mg BEFORE BREAKFAST [place] Last administered on 11/04/18at 06:43; Admin Dose 10 MG; Start 11/03/18 at 06:00; Stop 11/06/18 at 05: 59 Acetaminophen (Tylenol Tab) 1,000 mg Q4H PRN PO BREAKTHROUGH PAIN Last administered on 11/03/18at 18:24; Admin Dose 1,000 MG; Start 11/02/18 at 13:30 Assessment/Plan Additional Assessment/Plan Rehab- Cervical myelopathy with cord compression, status post cervical laminectomy. Continue activities as tolerated. Follow up MRI ordered Acute pain syndrome- doing well on minimal pain meds Constipation- results with bowel program Hypertension. History of gout. Depression ERWIN KWOK MD Nov 04, 2018 15:13
[2018-11-04 19:44] VITALS: BP 128/67; RESP 18
[2018-11-04] MEDS: ATORVASTATIN 40 MG TAB PO SCH (21:08)
[2018-11-04] MEDS: ZOLPIDEM 5 MG TAB PO PRN (21:09)
[2018-11-04] MEDS: traMADol 50 MG TAB PO PRN (21:09)
[2018-11-04] MEDS: SENNA TAB PO SCH (21:09)
[2018-11-04] MEDS: TAMSULOSIN (SR) 0.4 MG CAP PO SCH (21:09)
--- NOTE | 2018-11-05 03:03 | CONS ---
DATE OF ADMISSION: 11/01/2018 DATE OF CONSULTATION: 11/04/2018 TYPE OF CONSULTATION: Psychological. REFERRING PHYSICIAN: Erwin Currie MD CONSULTING PSYCHOLOGIST: Judy Leary, PhD REASON FOR CONSULTATION: This consultation was requested by Dr. Deedee Currie in order to evaluate the cognitive and emotional functioning of this patient related to his present medical conditions. HISTORY OF PRESENT ILLNESS: The patient is a 68-year-old male. He has had problems with bilateral upper extremity and lower extremity weakness and numbness. The patient did a workup, which revealed cervical myelopathy with cord compression. The patient did require decompressive cervical laminectomy performed on 10/26/2018. The patient was cleared medically and sent to the acute rehabilitation unit for acute multidisciplinary rehabilitation. 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 The patient is very clear about his frustration about what has been going on with him and feels like he let things go further than they should before he took care of them medically. The patient is motivated to get better and does want to return to his previous level of functioning. FAMILY AND SOCIAL HISTORY: The patient lives alone in a home in [facility]. The patient does want to return there after discharge. The patient is aware that there can be some difficulties, as this is a home and his bedroom and master bath are on the second floor. The patient is considering things that he might be able to do to try and rectify this so that he can return home and be able to function adequately without endangering himself with a possible fall. MEDICATIONS: The patient is currently on Wellbutrin 300 mg daily. The patient reports that he has been taking this for a long time. The patient does take this primarily for dealing with trying to limit his tobacco use. The patient does smoke cigars and uses Wellbutrin to help curve his need for nicotine. It also helps him with mood. SUBSTANCE USE: The patient denies any use of alcohol, other than social. The patient reports that he does smoke cigars from time to time, but uses Wellbutrin to stop the craving. MENTAL STATUS EXAMINATION: APPEARANCE: The patient was seen in bed. He appears to be of average height and weight. The patient wears glasses. He has a merida and mustache. The patient is right-handed. BEHAVIOR: The patient was cooperative during the consultation. The patient did attempt to answer all questions presented to him by the interviewer. MOOD AND AFFECT: The patient's mood appears to be just slightly depressed. It relates to his frustration about his medical issues. The patient does admit to being frustrated and bitter about his own lack of paying attention to his medical issues. PERCEPTION: The patient reports no hallucinations or delusions. The patient was alert to person, place, situation and time. MEMORY AND COGNITION: The patient's memory and cognition appear to be intact. He had no difficulty recalling recent and remote events. The patient was very clear and was able to remember all the things that were going on around him. He did know that the name of the hospital, the month and the year. He clearly has all his cognition is intact. INTELLIGENCE: Intelligence appears to fall in the above average to superior range. INSIGHT: Good. JUDGMENT: Good. THOUGHT CONTENT: The patient is concerned about his present medical condition. The patient is frustrated about the fact that he let it go so long and now is suffering as a result of this. The patient is motivated and does want to return to his previous level of functioning. DISCUSSION: The patient can likely benefit from some cognitive/behavioral psychotherapy while he is on the unit. The psychotherapy would focus on his underlying level of frustration about his medical problems. 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 Thank you very much, Dr. Deedee Currie, for referring this individual. Please do not hesitate to call if you have additional questions. Dictated By: JUDY LEARY PHD ALEXA/PUJA Conf#: [id number] DID#: [id number] CC: ERWIN CURRIE MD;*EndCC* MTDD
[2018-11-05] MEDS: LACTULOSE 30ML CUP PO PRN (06:32)
[2018-11-05] MEDS: BISACODYL 10 MG SUPP PR SCH (07:00)
[2018-11-05 07:30] VITALS: BP 113/66; PULSE 65; RESP 20
--- NOTE | 2018-11-05 08:17 | CONS ---
Assessment/Plan Assessment/Plan Assessment/Plan (Daily) 1. Post op cx spine surgery with still signif neuro defecit, working aggressively with pt 2. BP controlled 3. Constipation still problematic, lactulose given today Consultation Date/Type/Reason Admit Date/Time Nov 01, 2018 at 15:30 Initial Consult Date Date/Time of Note DATE: 11/05/18 TIME: 08:13 Detailed Summary Respiratory: No cough, No shortness of breath Cardiovascular: No chest pain, No lightheadedness Gastrointestinal: no complaints, other (constipated without abd discomfort) Genitourinary: no complaints Musculoskeletal: neck pain (mild) Neurologic: other (weakness of all extrem, right upper >left, balance remains problematic) Exam/Review of Systems Exam Vitals Vital Signs Date Temp Pulse Resp B/P (MAP) Pulse Ox O2 O2 Flow FiO2 Time Delivery Rate 11/05/18 97.9 65 20 113/66 95 Room Air 07:30 (82) Intake and Output 11/04/18 11/04/18 11/05/18 1414:59 22:59 06:59 IntakeIntake Total 1400 ml 550 ml OutputOutput Total 800 ml BalanceBalance 600 ml 550 ml Neck: No jvd Respiratory: clear to auscultation Cardiovascular: regular rate and rhythm Gastrointestinal: soft Extremities: No edema, No pitting pedal edema, No tenderness Neurological: other (right upper extrem weakness>left, hip flexion nl bilat, gait not evaluated) Results Result Diagram: 11/02/18 0849 11/03/18 1013 Medications Medication Current Medications Docusate Sodium (Colace) 100 mg BID PO Last administered on 11/04/18at 21:08; Admin Dose 100 MG; Start 11/01/18 at 21:00 Senna (Senokot) 1 tab HS PO Last administered on 11/04/18at 21:09; Admin Dose 1 TAB; Start 11/01/18 at 21:00 Magnesium Hydroxide (Milk Of Mag) 30 ml BID PRN PO CONSTIPATION; Start 11/01/18 at 16:00 Lactulose (Enulose) 20 gm DAILY PRN PO CONSTIPATION Last administered on 11/05/18at 06:32; Admin Dose 20 GM; Start 11/01/18 at 16:00 Bisacodyl (Dulcolax Supp) 10 mg DAILY PRN [place] CONSTIPATION; Start 11/01/18 at 16:00 Acetaminophen (Tylenol Tab) 650 mg Q4H PRN PO MILD PAIN LEVEL 1-3 Last administered on 11/04/18 10:42; Admin Dose 650 MG; Start 11/01/18 at 16:00 Miscellaneous Information (Pending Santyl Order For Wound Care) This patient kramer... PRN PRN XX WOUND CARE; Start 11/01/18 at 16:00 Acetaminophen/ Hydrocodone Bitart ([place] (10/325)) 1 tab Q4H PRN PO MODERATE PAIN LEVEL 4-6; Start 11/01/18 at 16:00 Acetaminophen/ Hydrocodone Bitart ([place] (10/325)) 2 tab Q4H PRN PO SEVERE PAIN LEVEL 7-10; Start 11/01/18 at 16:00 Amlodipine Besylate (Norvasc) 5 mg DAILY PO Last administered on 11/04/18 08:31; Admin Dose 5 MG; Start 11/02/18 at 09:00 Atorvastatin Calcium (Lipitor) 40 mg HS PO Last administered on 11/04/18 21:08; Admin Dose 40 MG; Start 11/01/18 at 21:00 Baclofen (Lioresal) 5 mg TID PRN PO muscle spasm Last administered on 11/02/18 08:22; Admin Dose 5 MG; Start 11/01/18 at 16:00 Benazepril HCl (Lotensin) 40 mg DAILY PO Last administered on 11/04/18 08:31; Admin Dose 40 MG; Start 11/02/18 at 09:00 Bupropion HCl (Wellbutrin Xl) 300 mg DAILY PO Last administered on 11/04/18 08:30; Admin Dose 300 MG; Start 11/02/18 at 09:00 Cyclobenzaprine HCl (Flexeril) 10 mg Q8H PRN PO muscles spasm Last administered on 11/04/18 21:09; Admin Dose 10 MG; Start 11/01/18 at 16:00 Famotidine (Pepcid) 20 mg BID PO Last administered on 11/04/18 21:09; Admin Dose 20 MG; Start 11/01/18 at 21:00 Febuxostat (Uloric) 40 mg DAILY PO Last administered on 11/04/18 08:30; Admin Dose 40 MG; Start 11/02/18 at 09:00 Ondansetron HCl (Zofran Inj) 4 mg Q6H PRN IV NAUSEA AND/OR VOMITING; Start 11/01/18 at 16:00 Polyethylene Glycol (Miralax) 17 gm DAILY PO Last administered on 11/04/18 08:34; Admin Dose 17 GM; Start 11/02/18 at 09:00 Sodium Biphosphate/ Sodium Phosphate (Fleet Enema) 133 ml DAILY PRN [place] CONSTIPATION; Start 11/01/18 at 16:00 Tamsulosin HCl (Flomax) 0.4 mg HS PO Last administered on 11/04/18 21:09; Admin Dose 0.4 MG; Start 11/01/18 at 21:00 Zolpidem Tartrate (Ambien) 5 mg HS PRN PO INSOMNIA Last administered on 11/04/18 21:09; Admin Dose 5 MG; Start 11/01/18 at 16:30 Bisacodyl (Dulcolax Supp) 10 mg BEFORE BREAKFAST [place] Last administered on 11/04/18 06:43; Admin Dose 10 MG; Start 11/03/18 at 06:00; Stop 11/06/18 at 05:59 Acetaminophen (Tylenol Tab) 1,000 mg Q4H PRN PO BREAKTHROUGH PAIN Last administered on 11/03/18 18:24; Admin Dose 1,000 MG; Start 11/02/18 at 13:30 Tramadol HCl (Ultram) 50 mg TID PRN PO PAIN LEVEL 6-10 Last administered on 11/04/18 21:09; Admin Dose 50 MG; Start 11/04/18 at 19:00 VANDANA KESSLER MD Nov 05, 2018 08:17
[2018-11-05] MEDS: POLYETHYLENE GLYCOL 17 GM PACKET PO SCH (08:45)
[2018-11-05] MEDS: FEBUXOSTAT 40 MG TABLET PO SCH (08:45)
[2018-11-05] MEDS: BUPROPION (XL) 150 MG TAB PO SCH (08:45)
[2018-11-05] MEDS: DOCUSATE SODIUM 100 MG CAP PO SCH ×2 (08:45→20:41)
[2018-11-05] MEDS: AMLODIPINE 5 MG TAB PO SCH (08:46)
[2018-11-05] MEDS: FAMOTIDINE 20 MG TAB PO SCH ×2 (08:46→20:42)
[2018-11-05] MEDS: BENAZEPRIL 40 MG TAB PO SCH (08:46)
[2018-11-05] MEDS: traMADol 50 MG TAB PO PRN ×3 (08:49→21:48)
[2018-11-05 14:00] VITALS: BP 120/67; PULSE 71; RESP 20
--- NOTE | 2018-11-05 16:58 | PN ---
Date/Time of Note Date/Time of Note DATE: 11/05/18 TIME: 16:57 Objective Vital Signs Date Temp Pulse Resp B/P (MAP) Pulse Ox O2 O2 Flow FiO2 Time Delivery Rate 11/05/18 98.4 71 20 120/67 95 Room Air 14:00 (84) Intake and Output 11/04/18 11/04/18 11/05/18 1515:00 23:00 07:00 IntakeIntake Total 1400 ml 550 ml OutputOutput Total 800 ml BalanceBalance 600 ml 550 ml Exam INTERDISCIPLINARY TEAM CONFERENCE Attended by PT, OT, ST, Social Work, Rehabilitation Nursing, Ventilation Worker and Senior HydrogeologistScheduling Coordinator Exam: Pulm- cta Abd-soft BOWEL- Cont BLADDER-Cont SKIN- intact OT- DRESSING- mod BATHING-mod TOILETING-mod PT- BED MOBILITY-sba TRANSFERS-cga AMBULATION-min 100 feet A/P- Interdisciplinary team conference held today. Please see interdisciplinary sheet. Working toward d.c. on 11/11 with post discharge follow up of physical therapy, occupational therapy. Results/Medications Result Diagram: 11/02/18 0849 11/03/18 1013 Medications Current Medications Docusate Sodium (Colace) 100 mg BID PO Last administered on 11/05/18at 08:45; Admin Dose 100 MG; Start 11/01/18 at 21:00 Senna (Senokot) 1 tab HS PO Last administered on 11/04/18at 21:09; Admin Dose 1 TAB; Start 11/01/18 at 21:00 Magnesium Hydroxide (Milk Of Mag) 30 ml BID PRN PO CONSTIPATION; Start 11/01/18 at 16:00 Lactulose (Enulose) 20 gm DAILY PRN PO CONSTIPATION Last administered on 11/05/18at 06:32; Admin Dose 20 GM; Start 11/01/18 at 16:00 Bisacodyl (Dulcolax Supp) 10 mg DAILY PRN [place] CONSTIPATION; Start 11/01/18 at 16:00 Acetaminophen (Tylenol Tab) 650 mg Q4H PRN PO MILD PAIN LEVEL 1-3 Last administered on 11/04/18at 10:42; Admin Dose 650 MG; Start 11/01/18 at 16:00 Miscellaneous Information (Pending [facility] Order For Wound Care) This patient kramer... PRN PRN XX WOUND CARE; Start 11/01/18 at 16:00 Acetaminophen/ Hydrocodone Bitart ([place] (10/325)) 1 tab Q4H PRN PO MODERATE PAIN LEVEL 4-6; Start 11/01/18 at 16:00 Acetaminophen/ Hydrocodone Bitart ([place] (10/325)) 2 tab Q4H PRN PO SEVERE PAIN LEVEL 7-10; Start 11/01/18 at 16:00 Amlodipine Besylate (Norvasc) 5 mg DAILY PO Last administered on 11/05/18 08:46; Admin Dose 5 MG; Start 11/02/18 at 09:00 Atorvastatin Calcium (Lipitor) 40 mg HS PO Last administered on 11/04/18 21:08; Admin Dose 40 MG; Start 11/01/18 at 21:00 Baclofen (Lioresal) 5 mg TID PRN PO muscle spasm Last administered on 11/02/18 08:22; Admin Dose 5 MG; Start 11/01/18 at 16:00 Benazepril HCl (Lotensin) 40 mg DAILY PO Last administered on 11/05/18 08:46; Admin Dose 40 MG; Start 11/02/18 at 09:00 Bupropion HCl (Wellbutrin Xl) 300 mg DAILY PO Last administered on 11/05/18 08:45; Admin Dose 300 MG; Start 11/02/18 at 09:00 Cyclobenzaprine HCl (Flexeril) 10 mg Q8H PRN PO muscles spasm Last administered on 11/04/18 21:09; Admin Dose 10 MG; Start 11/01/18 at 16:00 Famotidine (Pepcid) 20 mg BID PO Last administered on 11/05/18 08:46; Admin Dose 20 MG; Start 11/01/18 at 21:00 Febuxostat (Uloric) 40 mg DAILY PO Last administered on 11/05/18 08:45; Admin Dose 40 MG; Start 11/02/18 at 09:00 Ondansetron HCl (Zofran Inj) 4 mg Q6H PRN IV NAUSEA AND/OR VOMITING; Start 11/01/18 at 16:00 Polyethylene Glycol (Miralax) 17 gm DAILY PO Last administered on 11/05/18at 0 8:45; Admin Dose 17 GM; Start 11/02/18 at 09:00 Sodium Biphosphate/ Sodium Phosphate (Fleet Enema) 133 ml DAILY PRN [place] CONSTIPATION; Start 11/01/18 at 16:00 Tamsulosin HCl (Flomax) 0.4 mg HS PO Last administered on 11/04/18at 21:09; Admin Dose 0.4 MG; Start 11/01/18 at 21:00 Zolpidem Tartrate (Ambien) 5 mg HS PRN PO INSOMNIA Last administered on 11/04/18at 21:09; Admin Dose 5 MG; Start 11/01/18 at 16:30 Bisacodyl (Dulcolax Supp) 10 mg BEFORE BREAKFAST [place] Last administered on 11/04/18at 06:43; Admin Dose 10 MG; Start 11/03/18 at 06:00; Stop 11/06/18 at 05:59 Acetaminophen (Tylenol Tab) 1,000 mg Q4H PRN PO BREAKTHROUGH PAIN Last administered on 11/03/18at 18:24; Admin Dose 1,000 MG; Start 11/02/18 at 13:30 Tramadol HCl (Ultram) 50 mg TID PRN PO PAIN LEVEL 6-10 Last administered on 11/05/18at 15:52; Admin Dose 50 MG; Start 11/04/18 at 19:00 Gabapentin (Neurontin) 100 mg TID PO ; Start 11/05/18 at 21:00 ERWIN KWOK MD Nov 05, 2018 16:58
[2018-11-05 19:30] VITALS: BP 128/69; PULSE 68; RESP 18
[2018-11-05] MEDS: SENNA TAB PO SCH (20:41)
[2018-11-05] MEDS: TAMSULOSIN (SR) 0.4 MG CAP PO SCH (20:41)
[2018-11-05] MEDS: ATORVASTATIN 40 MG TAB PO SCH (20:42)
[2018-11-05] MEDS: GABAPENTIN 100 MG CAP PO SCH (21:00)
[2018-11-05] MEDS: ZOLPIDEM 5 MG TAB PO PRN (21:38)
[2018-11-05] MEDS: MAGNESIUM HYDROXIDE 30ML CUP PO PRN (21:55)
[2018-11-06 07:00] VITALS: BP_SYST 112; BP_SYST 159; BP_DIAS 67; BP_DIAS 68; PULSE 67; PULSE 85; RESP 18
[2018-11-06] MEDS: POLYETHYLENE GLYCOL 17 GM PACKET PO SCH (08:16)
[2018-11-06] MEDS: traMADol 50 MG TAB PO PRN ×3 (08:17→20:34)
[2018-11-06] MEDS: AMLODIPINE 5 MG TAB PO SCH (08:17)
[2018-11-06] MEDS: BENAZEPRIL 40 MG TAB PO SCH (08:17)
[2018-11-06] MEDS: DOCUSATE SODIUM 100 MG CAP PO SCH ×2 (08:17→20:30)
[2018-11-06] MEDS: FAMOTIDINE 20 MG TAB PO SCH ×2 (08:17→20:30)
[2018-11-06] MEDS: GABAPENTIN 100 MG CAP PO SCH (08:17)
[2018-11-06] MEDS: BUPROPION (XL) 150 MG TAB PO SCH (08:17)
[2018-11-06] MEDS: FEBUXOSTAT 40 MG TABLET PO SCH (08:17)
--- NOTE | 2018-11-06 08:28 | PN ---
Date/Time of Note Date/Time of Note DATE: 11/06/18 TIME: 08:26 Subjective AWAKE ALERT, MILD PAIN Objective Vital Signs Date Temp Pulse Resp B/P (MAP) Pulse Ox O2 O2 Flow FiO2 Time Delivery Rate 11/05/18 98.2 68 18 128/69 97 Room Air 19:30 (88) Intake and Output 11/05/18 11/05/18 11/06/18 1515:00 23:00 07:00 IntakeIntake Total 300 ml 1320 ml BalanceBalance 300 ml 1320 ml Exam LUNGS CAT LE MOTOR 4+/5 B CLOF MBED MOB SBA, XT CGA, GAIT MIN A Results/Medications Result Diagram: 11/02/18 0849 11/03/18 1013 Medications Current Medications Docusate Sodium (Colace) 100 mg BID PO Last administered on 11/06/18at 08:17; Admin Dose 100 MG; Start 11/01/18 at 21:00 Senna (Senokot) 1 tab HS PO Last administered on 11/05/18at 20:41; Admin Dose 1 TAB; Start 11/01/18 at 21:00 Magnesium Hydroxide (Milk Of Mag) 30 ml BID PRN PO CONSTIPATION Last administered on 11/05/18at 21:55; Admin Dose 30 ML; Start 11/01/18 at 16:00 Lactulose (Enulose) 20 gm DAILY PRN PO CONSTIPATION Last administered on 11/05/18at 06:32; Admin Dose 20 GM; Start 11/01/18 at 16:00 Bisacodyl (Dulcolax Supp) 10 mg DAILY PRN [place] CONSTIPATION; Start 11/01/18 at 16:00 Acetaminophen (Tylenol Tab) 650 mg Q4H PRN PO MILD PAIN LEVEL 1-3 Last administered on 11/04/18at 10:42; Admin Dose 650 MG; Start 11/01/18 at 16:00 Miscellaneous Information (Pending Santyl Order For Wound Care) This patient kramer... PRN PRN XX WOUND CARE; Start 11/01/18 at 16:00 Acetaminophen/ Hydrocodone Bitart ([place] (10/325)) 1 tab Q4H PRN PO MODERATE PAIN LEVEL 4-6; Start 11/01/18 at 16:00 Acetaminophen/ Hydrocodone Bitart ([place] (10/325)) 2 tab Q4H PRN PO SEVERE PAIN LEVEL 7-10; Start 11/01/18 at 16:00 Amlodipine Besylate (Norvasc) 5 mg DAILY PO Last administered on 11/06/18 08:17; Admin Dose 5 MG; Start 11/02/18 at 09:00 Atorvastatin Calcium (Lipitor) 40 mg HS PO Last administered on 11/04/18 21:08; Admin Dose 40 MG; Start 11/01/18 at 21:00 Baclofen (Lioresal) 5 mg TID PRN PO muscle spasm Last administered on 11/02/18 08:22; Admin Dose 5 MG; Start 11/01/18 at 16:00 Benazepril HCl (Lotensin) 40 mg DAILY PO Last administered on 11/06/18 08:17; Admin Dose 40 MG; Start 11/02/18 at 09:00 Bupropion HCl (Wellbutrin Xl) 300 mg DAILY PO Last administered on 11/06/18 08:17; Admin Dose 300 MG; Start 11/02/18 at 09:00 Cyclobenzaprine HCl (Flexeril) 10 mg Q8H PRN PO muscles spasm Last administered on 11/04/18 21:09; Admin Dose 10 MG; Start 11/01/18 at 16:00 Famotidine (Pepcid) 20 mg BID PO Last administered on 11/06/18 08:17; Admin Dose 20 MG; Start 11/01/18 at 21:00 Febuxostat (Uloric) 40 mg DAILY PO Last administered on 11/06/18 08:17; Admin Dose 40 MG; Start 11/02/18 at 09:00 Ondansetron HCl (Zofran Inj) 4 mg Q6H PRN IV NAUSEA AND/OR VOMITING; Start 11/01/18 at 16:00 Polyethylene Glycol (Miralax) 17 gm DAILY PO Last administered on 11/06/18 08:16; Admin Dose 17 GM; Start 11/02/18 at 09:00 Sodium Biphosphate/ Sodium Phosphate (Fleet Enema) 133 ml DAILY PRN [place] CONSTIPATION; Start 11/01/18 at 16:00 Tamsulosin HCl (Flomax) 0.4 mg HS PO Last administered on 11/05/18 20:41; Admin Dose 0.4 MG; Start 11/01/18 at 21:00 Zolpidem Tartrate (Ambien) 5 mg HS PRN PO INSOMNIA Last administered on 11/05/18at 21:38; Admin Dose 5 MG; Start 11/01/18 at 16:30 Acetaminophen (Tylenol Tab) 1,000 mg Q4H PRN PO BREAKTHROUGH PAIN Last administered on 11/03/18at 18:24; Admin Dose 1,000 MG; Start 11/02/18 at 13:30 Tramadol HCl (Ultram) 50 mg TID PRN PO PAIN LEVEL 6-10 Last administered on 11/06/18at 08:17; Admin Dose 50 MG; Start 11/04/18 at 19:00 Assessment/Plan Additional Assessment/Plan Rehab- Cervical myelopathy with cord compression, status post cervical laminectomy. Continue activities as tolerated. GREAT GAINS. PATIENT DOESNT WANT NEURONTIN DC Acute pain syndrome- doing well on minimal pain meds Constipation- results with bowel program Hypertension. History of gout. Depression DELILAH KWOK MD Nov 06, 2018 08:28
--- NOTE | 2018-11-06 08:51 | CONS ---
Assessment/Plan Assessment/Plan Assessment/Plan (Daily) 1. Post op cx spine surgery and related radiculopathy upper extrem and myelopathy. 2. BP well controlled 3. Sl rise in Scr, will obtain labs tomm 4. Constipation resolved 5. Post void bladder residual <50 cc Consultation Date/Type/Reason Admit Date/Time Nov 01, 2018 at 15:30 Initial Consult Date Date/Time of Note DATE: 11/06/18 TIME: 08:48 Detailed Summary Respiratory: No cough Cardiovascular: No chest pain Gastrointestinal: other (had bm) Genitourinary: no complaints Musculoskeletal: neck pain (is less) Neurologic: other (right uppe extrem is stronger, still weakness upper extrem bilat and balance is better) Exam/Review of Systems Exam Vitals Vital Signs Date Temp Pulse Resp B/P (MAP) Pulse Ox O2 O2 Flow FiO2 Time Delivery Rate 11/05/18 98.2 68 18 128/69 97 Room Air 19:30 (88) Intake and Output 11/05/18 11/05/18 11/06/18 1515:00 23:00 07:00 IntakeIntake Total 300 ml 1320 ml BalanceBalance 300 ml 1320 ml Neck: No jvd Respiratory: clear to auscultation Cardiovascular: regular rate and rhythm Gastrointestinal: soft Extremities: No calf tenderness, No edema, No pitting pedal edema Results Result Diagram: 11/02/18 0849 11/03/18 1013 Medications Medication Current Medications Docusate Sodium (Colace) 100 mg BID PO Last administered on 11/06/18at 08:17; Admin Dose 100 MG; Start 11/01/18 at 21:00 Senna (Senokot) 1 tab HS PO Last administered on 11/05/18at 20:41; Admin Dose 1 TAB; Start 11/01/18 at 21:00 Magnesium Hydroxide (Milk Of Mag) 30 ml BID PRN PO CONSTIPATION Last admi nistered on 11/05/18at 21:55; Admin Dose 30 ML; Start 11/01/18 at 16:00 Lactulose (Enulose) 20 gm DAILY PRN PO CONSTIPATION Last administered on 11/05/18at 06:32; Admin Dose 20 GM; Start 11/01/18 at 16:00 Bisacodyl (Dulcolax Supp) 10 mg DAILY PRN [place] CONSTIPATION; Start 11/01/18 at 16:00 Acetaminophen (Tylenol Tab) 650 mg Q4H PRN PO MILD PAIN LEVEL 1-3 Last administered on 11/04/18 10:42; Admin Dose 650 MG; Start 11/01/18 at 16:00 Miscellaneous Information (Pending Santyl Order For Wound Care) This patient kramer... PRN PRN XX WOUND CARE; Start 11/01/18 at 16:00 Acetaminophen/ Hydrocodone Bitart ([place] (10/325)) 1 tab Q4H PRN PO MODERATE PAIN LEVEL 4-6; Start 11/01/18 at 16:00 Acetaminophen/ Hydrocodone Bitart ([place] (10/325)) 2 tab Q4H PRN PO SEVERE PAIN LEVEL 7-10; Start 11/01/18 at 16:00 Amlodipine Besylate (Norvasc) 5 mg DAILY PO Last administered on 11/06/18 08:17; Admin Dose 5 MG; Start 11/02/18 at 09:00 Atorvastatin Calcium (Lipitor) 40 mg HS PO Last administered on 11/04/18 21:08; Admin Dose 40 MG; Start 11/01/18 at 21:00 Baclofen (Lioresal) 5 mg TID PRN PO muscle spasm Last administered on 11/02/18 08:22; Admin Dose 5 MG; Start 11/01/18 at 16:00 Benazepril HCl (Lotensin) 40 mg DAILY PO Last administered on 11/06/18 08:17; Admin Dose 40 MG; Start 11/02/18 at 09:00 Bupropion HCl (Wellbutrin Xl) 300 mg DAILY PO Last administered on 11/06/18 08:17; Admin Dose 300 MG; Start 11/02/18 at 09:00 Cyclobenzaprine HCl (Flexeril) 10 mg Q8H PRN PO muscles spasm Last administered on 11/04/18 21:09; Admin Dose 10 MG; Start 11/01/18 at 16:00 Famotidine (Pepcid) 20 mg BID PO Last administered on 11/06/18 08:17; Admin Dose 20 MG; Start 11/01/18 at 21:00 Febuxostat (Uloric) 40 mg DAILY PO Last administered on 11/06/18 08:17; Admin Dose 40 MG; Start 11/02/18 at 09:00 Ondansetron HCl (Zofran Inj) 4 mg Q6H PRN IV NAUSEA AND/OR VOMITING; Start 11/01/18 at 16:00 Polyethylene Glycol (Miralax) 17 gm DAILY PO Last administered on 11/06/18 08:16; Admin Dose 17 GM; Start 11/02/18 at 09:00 Sodium Biphosphate/ Sodium Phosphate (Fleet Enema) 133 ml DAILY PRN [place] CONSTI PATION; Start 11/01/18 at 16:00 Tamsulosin HCl (Flomax) 0.4 mg HS PO Last administered on 11/05/18 20:41; Admin Dose 0.4 MG; Start 11/01/18 at 21:00 Zolpidem Tartrate (Ambien) 5 mg HS PRN PO INSOMNIA Last administered on 11/05/18 21:38; Admin Dose 5 MG; Start 11/01/18 at 16:30 Acetaminophen (Tylenol Tab) 1,000 mg Q4H PRN PO BREAKTHROUGH PAIN Last administered on 11/03/18 18:24; Admin Dose 1,000 MG; Start 11/02/18 at 13:30 Tramadol HCl (Ultram) 50 mg TID PRN PO PAIN LEVEL 6-10 Last administered on 11/06/18 08:17; Admin Dose 50 MG; Start 11/04/18 at 19:00 VANDANA KESSLER MD Nov 06, 2018 08:51
--- NOTE | 2018-11-06 12:38 | PSY ---
Date/Time of Note Date/Time of Note DATE: 11/06/18 TIME: 12:32 Psychiatric Subjective Eval Consent Pt consented to telemedicine: No Subjective Evaluation Patient location: inpatient History of present illness Patient is a 68-year-old male who is currently admitted to rehab with bilateral upper extremity and lower extremity weakness and numbness. The [id number] evaluation patient is in good spirits, states he was feeling sad if few days ago but he is more motivated today than he has ever been. Patient states he had history of depression in the past when he went through divorce but he contracted for safety. He currently declines any medication for depression, states he is taking bupropion just for smoking cessation. And contracted for safety Past psychiatric history History of depression as a result of divorce Hospitalization: other Allergies: Coded Allergies: No Known Allergy (Unverified , 10/26/18) Substance Abuse Substance use: other Substance abuse history: No Prior substance abuse treatmen: No Social History Marital status: DPA/Conservatorship: No Psychiatric Objective Eval Review of Systems: Review of Systems: Not Applicable Physical Examination: Sleep: Adequate Appetite: Adequate Energy: Adequate Interest: Adequate Mental Status Examination: Appearance: Groomed Eye Contact: Good Psychomotor Activity: Normal Behavior: Friendly Speech: Clear AFFECT: Appropriate Mood: Appropriate/Full Orientation: x4 Insight: Intact Judgement: Intact Attention Span: Intact Assessment and Plan Assessment/Diagnosis Diagnosis 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
[2018-11-06 14:00] VITALS: BP 120/71; PULSE 66; RESP 18
[2018-11-06 20:00] VITALS: BP 131/67; PULSE 72; RESP 18
[2018-11-06] MEDS: TAMSULOSIN (SR) 0.4 MG CAP PO SCH (20:30)
[2018-11-06] MEDS: SENNA TAB PO SCH (20:30)
[2018-11-06] MEDS: ATORVASTATIN 40 MG TAB PO SCH (20:30)
[2018-11-06] MEDS: ZOLPIDEM 5 MG TAB PO PRN (20:33)
[2018-11-07 08:05] VITALS: BP 135/79; PULSE 72; RESP 19
[2018-11-07] MEDS: POLYETHYLENE GLYCOL 17 GM PACKET PO SCH (08:13)
[2018-11-07] MEDS: FAMOTIDINE 20 MG TAB PO SCH ×2 (08:13→21:04)
[2018-11-07] MEDS: BENAZEPRIL 40 MG TAB PO SCH (08:14)
[2018-11-07] MEDS: BUPROPION (XL) 150 MG TAB PO SCH (08:14)
[2018-11-07] MEDS: AMLODIPINE 5 MG TAB PO SCH (08:14)
[2018-11-07] MEDS: DOCUSATE SODIUM 100 MG CAP PO SCH ×2 (08:14→21:05)
[2018-11-07] MEDS: FEBUXOSTAT 40 MG TABLET PO SCH (08:15)
[2018-11-07] MEDS: traMADol 50 MG TAB PO PRN ×3 (08:15→21:05)
--- NOTE | 2018-11-07 09:37 | PN ---
Date/Time of Note Date/Time of Note DATE: 11/07/18 TIME: 09:35 Subjective AWAKE ALERT, - SOB , PAIN MILD Objective Vital Signs Date Temp Pulse Resp B/P (MAP) Pulse Ox O2 O2 Flow FiO2 Time Delivery Rate 11/07/18 97.6 72 19 135/79 95 Room Air 08:05 (97) Intake and Output 11/06/18 11/06/18 11/07/18 1515:00 23:00 07:00 IntakeIntake Total 1000 ml 1400 ml OutputOutput Total 600 ml BalanceBalance 1000 ml 800 ml Exam LUE DELT 4/5R DEVICE ENGINEER 4/5, BALANCE FAIR CLOF CGA BED MOB , XT AND GAIT Results/Medications Result Diagram: 11/03/18 1013 Medications Current Medications Docusate Sodium (Colace) 100 mg BID PO Last administered on 11/07/18at 08:14; Admin Dose 100 MG; Start 11/01/18 at 21:00 Senna (Senokot) 1 tab HS PO Last administered on 11/06/18at 20:30; Admin Dose 1 TAB; Start 11/01/18 at 21:00 Magnesium Hydroxide (Milk Of Mag) 30 ml BID PRN PO CONSTIPATION Last administered on 11/05/18at 21:55; Admin Dose 30 ML; Start 11/01/18 at 16:00 Lactulose (Enulose) 20 gm DAILY PRN PO CONSTIPATION Last administered on 11/05/18at 06:32; Admin Dose 20 GM; Start 11/01/18 at 16:00 Bisacodyl (Dulcolax Supp) 10 mg DAILY PRN [place] CONSTIPATION; Start 11/01/18 at 16:00 Acetaminophen (Tylenol Tab) 650 mg Q4H PRN PO MILD PAIN LEVEL 1-3 Last administered on 11/04/18at 10:42; Admin Dose 650 MG; Start 11/01/18 at 16:00 Miscellaneous Information (Pending Santyl Order For Wound Care) This patient kramer... PRN PRN XX WOUND CARE; Start 11/01/18 at 16:00 Acetaminophen/ Hydrocodone Bitart ([place] (10/325)) 1 tab Q4H PRN PO MODERATE PAIN LEVEL 4-6; Start 11/01/18 at 16:00 Acetaminophen/ Hydrocodone Bitart ([place] (10/325)) 2 tab Q4H PRN PO SEVERE PAIN LEVEL 7-10; Start 11/01/18 at 16:00 Amlodipine Besylate (Norvasc) 5 mg DAILY PO Last administered on 11/07/18 08:14; Admin Dose 5 MG; Start 11/02/18 at 09:00 Atorvastatin Calcium (Lipitor) 40 mg HS PO Last administered on 11/06/18 20:30; Admin Dose 40 MG; Start 11/01/18 at 21:00 Baclofen (Lioresal) 5 mg TID PRN PO muscle spasm Last administered on 11/02/18 08:22; Admin Dose 5 MG; Start 11/01/18 at 16:00 Benazepril HCl (Lotensin) 40 mg DAILY PO Last administered on 11/07/18 08:14; Admin Dose 40 MG; Start 11/02/18 at 09:00 Bupropion HCl (Wellbutrin Xl) 300 mg DAILY PO Last administered on 11/07/18 08:14; Admin Dose 300 MG; Start 11/02/18 at 09:00 Cyclobenzaprine HCl (Flexeril) 10 mg Q8H PRN PO muscles spasm Last administered on 11/04/18 21:09; Admin Dose 10 MG; Start 11/01/18 at 16:00 Famotidine (Pepcid) 20 mg BID PO Last administered on 11/07/18 08:13; Admin Dose 20 MG; Start 11/01/18 at 21:00 Febuxostat (Uloric) 40 mg DAILY PO Last administered on 11/07/18 08:15; Admin Dose 40 MG; Start 11/02/18 at 09:00 Ondansetron HCl (Zofran Inj) 4 mg Q6H PRN IV NAUSEA AND/OR VOMITING; Start 11/01/18 at 16:00 Polyethylene Glycol (Miralax) 17 gm DAILY PO Last administered on 11/07/18 08:13; Admin Dose 17 GM; Start 11/02/18 at 09:00 Sodium Biphosphate/ Sodium Phosphate (Fleet Enema) 133 ml DAILY PRN IN CONSTIPATION; Start 11/01/18 at 16:00 Tamsulosin HCl (Flomax) 0.4 mg HS PO Last administered on 11/06/18 20:30; Admin Dose 0.4 MG; Start 11/01/18 at 21:00 Zolpidem Tartrate (Ambien) 5 mg HS PRN PO INSOMNIA Last administered on 11/06/18at 20:33; Admin Dose 5 MG; Start 11/01/18 at 16:30 Acetaminophen (Tylenol Tab) 1,000 mg Q4H PRN PO BREAKTHROUGH PAIN Last administered on 11/03/18at 18:24; Admin Dose 1,000 MG; Start 11/02/18 at 13:30 Tramadol HCl (Ultram) 50 mg TID PRN PO PAIN LEVEL 6-10 Last administered on 11/07/18at 08:15; Admin Dose 50 MG; Start 11/04/18 at 19:00 Assessment/Plan Additional Assessment/Plan Rehab- Cervical myelopathy with cord compression, status post cervical laminectomy. Continue activities as tolerated. GREAT GAINS. PATIENT DOESNT WANT NEURONTIN DC Acute pain syndrome- doing well on minimal pain meds Constipation- results with bowel program Hypertension. History of gout. Depression- ADJUSTING DELILAH KWOK MD Nov 07, 2018 09:37
--- NOTE | 2018-11-07 11:44 | CONS ---
Assessment/Plan Assessment/Plan Assessment/Plan (Daily) 68yo M with hx of HLD, HTN who is now post-op C-spine surgery with radiculopathy upper extremites and myelopathy. - Continue rehabilitation. - Dc Labs (pt declines and no longer indicated). - Ok to bring in home Crestor. Consultation Date/Type/Reason Admit Date/Time Nov 01, 2018 at 15:30 Initial Consult Date Reason for Consultation Medical Co-Management Date/Time of Note DATE: 11/07/18 TIME: 11:41 24 HR Interval Summary Free Text/Dictation No overnight events. No complaints. States he wants to take his home Crestor, discussed with nurse. Constitutional: no complaints Exam/Review of Systems Exam Vitals Vital Signs Date Temp Pulse Resp B/P (MAP) Pulse Ox O2 O2 Flow FiO2 Time Delivery Rate 11/07/18 97.6 72 19 135/79 95 Room Air 08:05 (97) Intake and Output 11/06/18 11/06/18 11/07/18 1515:00 23:00 07:00 IntakeIntake Total 1000 ml 1400 ml OutputOutput Total 600 ml BalanceBalance 1000 ml 800 ml Constitutional: alert, well developed Psych: no complaints Head: normocephalic, atraumatic Eyes: nl conjunctiva ENMT: nl external ears & nose, nl nasal mucosa & septum Neck: supple, non-tender Respiratory: clear to auscultation Cardiovascular: regular rate and rhythm Gastrointestinal: nl liver, spleen, non-tender Neurological: GEOMATICS PROFESSOR II-XII intact, nl mental status, nl speech, nl strength Results Result Diagram: 11/03/18 1013 Medications Medication Current Medications Docusate Sodium (Colace) 100 mg BID PO Last administered on 11/07/18at 08:14; Admin Dose 100 MG; Start 11/01/18 at 21:00 Senna (Senokot) 1 tab HS PO Last administered on 11/06/18at 20:30; Admin Dose 1 TAB; Start 11/01/18 at 21:00 Magnesium Hydroxide (Milk Of Mag) 30 ml BID PRN PO CONSTIPATION Last administered on 11/05/18at 21:55; Admin Dose 30 ML; Start 11/01/18 at 16:00 Lactulose (Enulose) 20 gm DAILY PRN PO CONSTIPATION Last administered on 11/05/18at 06:32; Admin Dose 20 GM; Start 11/01/18 at 16:00 Bisacodyl (Dulcolax Supp) 10 mg DAILY PRN [place] CONSTIPATION; Start 11/01/18 at 16:00 Acetaminophen (Tylenol Tab) 650 mg Q4H PRN PO MILD PAIN LEVEL 1-3 Last administered on 11/04/18at 10:42; Admin Dose 650 MG; Start 11/01/18 at 16:00 Miscellaneous Information (Pending Santyl Order For Wound Care) This patient kramer... PRN PRN XX WOUND CARE; Start 11/01/18 at 16:00 Acetaminophen/ Hydrocodone Bitart ([place] (10/325)) 1 tab Q4H PRN PO MODERATE PAIN LEVEL 4-6; Start 11/01/18 at 16:00 Acetaminophen/ Hydrocodone Bitart ([place] (10/325)) 2 tab Q4H PRN PO SEVERE PAIN LEVEL 7-10; Start 11/01/18 at 16:00 Amlodipine Besylate (Norvasc) 5 mg DAILY PO Last administered on 11/07/18at 08:14; Admin Dose 5 MG; Start 11/02/18 at 09:00 Baclofen (Lioresal) 5 mg TID PRN PO muscle spasm Last administered on 11/02/18 08:22; Admin Dose 5 MG; Start 11/01/18 at 16:00 Benazepril HCl (Lotensin) 40 mg DAILY PO Last administered on 11/07/18 08:14; Admin Dose 40 MG; Start 11/02/18 at 09:00 Bupropion HCl (Wellbutrin Xl) 300 mg DAILY PO Last administered on 11/07/18at 08:14; Admin Dose 300 MG; Start 11/02/18 at 09:00 Cyclobenzaprine HCl (Flexeril) 10 mg Q8H PRN PO muscles spasm Last administered on 11/04/18 21:09; Admin Dose 10 MG; Start 11/01/18 at 16:00 Famotidine (Pepcid) 20 mg BID PO Last administered on 11/07/18 08:13; Admin Dose 20 MG; Start 11/01/18 at 21:00 Febuxostat (Uloric) 40 mg DAILY PO Last administered on 11/07/18 08:15; Admin Dose 40 MG; Start 11/02/18 at 09:00 Ondansetron HCl (Zofran Inj) 4 mg Q6H PRN IV NAUSEA AND/OR VOMITING; Start 11/01/18 at 16:00 Polyethylene Glycol (Miralax) 17 gm DAILY PO Last administered on 11/07/18 08:13; Admin Dose 17 GM; Start 11/02/18 at 09:00 Sodium Biphosphate/ Sodium Phosphate (Fleet Enema) 133 ml DAILY PRN [place] CONSTIPATION; Start 11/01/18 at 16:00 Tamsulosin HCl (Flomax) 0.4 mg HS PO Last administered on 11/06/18 20:30; Admin Dose 0.4 MG; Start 11/01/18 at 21:00 Zolpidem Tartrate (Ambien) 5 mg HS PRN PO INSOMNIA Last administered on 11/06/18 20:33; Admin Dose 5 MG; Start 11/01/18 at 16:30 Acetaminophen (Tylenol Tab) 1,000 mg Q4H PRN PO BREAKTHROUGH PAIN Last administered on 11/03/18at 18:24; Admin Dose 1,000 MG; Start 11/02/18 at 13:30 Tramadol HCl (Ultram) 50 mg TID PRN PO PAIN LEVEL 6-10 Last administered on 11/07/18 08:15; Admin Dose 50 MG; Start 11/04/18 at 19:00 Patient Own Medication 1 ea HS PO ; Start 11/07/18 at 21:00; Status LEONIE BARNES MD Nov 07, 2018 11:44
[2018-11-07 13:31] VITALS: BP 117/66; PULSE 65; RESP 18
[2018-11-07] MEDS: MAGNESIUM HYDROXIDE 30ML CUP PO PRN (16:57)
[2018-11-07 20:15] VITALS: BP 129/67; PULSE 69; RESP 18
[2018-11-07] MEDS ORDERED: PATIENT'S OWN MEDICATION PO SCH (21:00)
[2018-11-07] MEDS: SENNA TAB PO SCH (21:00)
[2018-11-07] MEDS: HYDROCORTISONE 1% 28 GM CR TOP PRN (21:04)
[2018-11-07] MEDS: ZOLPIDEM 5 MG TAB PO PRN (21:04)
[2018-11-07] MEDS: TAMSULOSIN (SR) 0.4 MG CAP PO SCH (21:04)
[2018-11-08 07:00] VITALS: BP 142/77; PULSE 81; RESP 18
[2018-11-08] MEDS: POLYETHYLENE GLYCOL 17 GM PACKET PO SCH (09:00)
[2018-11-08] MEDS: FEBUXOSTAT 40 MG TABLET PO SCH (09:18)
[2018-11-08] MEDS: BENAZEPRIL 40 MG TAB PO SCH (09:18)
[2018-11-08] MEDS: FAMOTIDINE 20 MG TAB PO SCH ×2 (09:18→20:27)
[2018-11-08] MEDS: DOCUSATE SODIUM 100 MG CAP PO SCH ×2 (09:18→20:27)
[2018-11-08] MEDS: BUPROPION (XL) 150 MG TAB PO SCH (09:19)
[2018-11-08] MEDS: AMLODIPINE 5 MG TAB PO SCH (09:19)
[2018-11-08] MEDS: traMADol 50 MG TAB PO PRN (09:26)
[2018-11-08] MEDS: HYDROCORTISONE 1% 28 GM CR TOP PRN (09:26)
--- NOTE | 2018-11-08 12:03 | CONS ---
Assessment/Plan Assessment/Plan Assessment/Plan (Daily) 68yo M with hx of HLD, HTN who is now post-op C-spine surgery with radiculopathy upper extremities and myelopathy. - Continue rehabilitation. - Ok to bring in home Crestor. Allergy to Lipitor. - Curbside Derm re: rash on scalp. Consultation Date/Type/Reason Admit Date/Time Nov 01, 2018 at 15:30 Initial Consult Date Type of Consult Internal Medicine Reason for Consultation Medical Co-Management Date/Time of Note DATE: 11/08/18 TIME: 12:00 24 HR Interval Summary Free Text/Dictation Yesterday, pt developed rash on scalp after showering and using hospital shampoo. Discussed curbside Dermatology consult. States not itchy. Exam/Review of Systems Exam Vitals Vital Signs Date Temp Pulse Resp B/P (MAP) Pulse Ox O2 O2 Flow FiO2 Time Delivery Rate 11/08/18 98.7 81 18 142/77 97 Room Air 07:00 (98) Intake and Output 11/07/18 11/07/18 11/08/18 1515:00 23:00 07:00 IntakeIntake Total 800 ml 1180 ml 240 ml BalanceBalance 800 ml 1180 ml 240 ml Constitutional: alert, oriented, well developed Psych: no complaints, nl mood/affect Head: normocephalic, other (Pustules, papules with erythema on scalp) Eyes: nl conjunctiva, EOMI Neck: supple, non-tender Respiratory: clear to auscultation, normal air movement Cardiovascular: regular rate and rhythm Gastrointestinal: soft, non-tender Musculoskeletal: nl extremities to inspection Neurological: TRAIN RESERVATION CLERK II-XII intact, nl mental status, nl speech Medications Medication Current Medications Docusate Sodium (Colace) 100 mg BID PO Last administered on 11/08/18at 09:18; Admin Dose 100 MG; Start 11/01/18 at 21:00 Senna (Senokot) 1 tab HS PO Last administered on 11/06/18at 20:30; Admin Dose 1 TAB; Start 11/01/18 at 21:00 Magnesium Hydroxide (Milk Of Mag) 30 ml BID PRN PO CONSTIPATION Last administe red on 11/07/18at 16:57; Admin Dose 30 ML; Start 11/01/18 at 16:00 Lactulose (Enulose) 20 gm DAILY PRN PO CONSTIPATION Last administered on 11/05/18 06:32; Admin Dose 20 GM; Start 11/01/18 at 16:00 Bisacodyl (Dulcolax Supp) 10 mg DAILY PRN [place] CONSTIPATION; Start 11/01/18 at 16:00 Acetaminophen (Tylenol Tab) 650 mg Q4H PRN PO MILD PAIN LEVEL 1-3 Last administered on 11/04/18 10:42; Admin Dose 650 MG; Start 11/01/18 at 16:00 Miscellaneous Information (Pending Santyl Order For Wound Care) This patient kramer... PRN PRN XX WOUND CARE; Start 11/01/18 at 16:00 Acetaminophen/ Hydrocodone Bitart ([place] (10/325)) 1 tab Q4H PRN PO MODERATE PAIN LEVEL 4-6; Start 11/01/18 at 16:00 Acetaminophen/ Hydrocodone Bitart ([place] (10/325)) 2 tab Q4H PRN PO SEVERE PAIN LEVEL 7-10; Start 11/01/18 at 16:00 Amlodipine Besylate (Norvasc) 5 mg DAILY PO Last administered on 11/08/18 09:19; Admin Dose 5 MG; Start 11/02/18 at 09:00 Baclofen (Lioresal) 5 mg TID PRN PO muscle spasm Last administered on 11/02/18 08:22; Admin Dose 5 MG; Start 11/01/18 at 16:00 Benazepril HCl (Lotensin) 40 mg DAILY PO Last administered on 11/08/18 09:18; Admin Dose 40 MG; Start 11/02/18 at 09:00 Bupropion HCl (Wellbutrin Xl) 300 mg DAILY PO Last administered on 11/08/18 09:19; Admin Dose 300 MG; Start 11/02/18 at 09:00 Cyclobenzaprine HCl (Flexeril) 10 mg Q8H PRN PO muscles spasm Last administered on 11/04/18 21:09; Admin Dose 10 MG; Start 11/01/18 at 16:00 Famotidine (Pepcid) 20 mg BID PO Last administered on 11/08/18 09:18; Admin Dose 20 MG; Start 11/01/18 at 21:00 Febuxostat (Uloric) 40 mg DAILY PO Last administered on 11/08/18 09:18; Admin Dose 40 MG; Start 11/02/18 at 09:00 Ondansetron HCl (Zofran Inj) 4 mg Q6H PRN IV NAUSEA AND/OR VOMITING; Start 11/01/18 at 16:00 Polyethylene Glycol (Miralax) 17 gm DAILY PO Last administered on 11/07/18 08:13; Admin Dose 17 GM; Start 11/02/18 at 09:00 Sodium Biphosphate/ Sodium Phosphate (Fleet Enema) 133 ml DAILY PRN [place] CONSTIPATION; Start 11/01/18 at 16:00 Tamsulosin HCl (Flomax) 0.4 mg HS PO Last administered on 11/07/18 21:04; Admin Dose 0.4 MG; Start 11/01/18 at 21:00 Zolpidem Tartrate (Ambien) 5 mg HS PRN PO INSOMNIA Last administered on 11/07/18 21:04; Admin Dose 5 MG; Start 11/01/18 at 16:30 Acetaminophen (Tylenol Tab) 1,000 mg Q4H PRN PO BREAKTHROUGH PAIN Last administered on 11/03/18 18:24; Admin Dose 1,000 MG; Start 11/02/18 at 13:30 Tramadol HCl (Ultram) 50 mg TID PRN PO PAIN LEVEL 6-10 Last administered on 11/08/18 09:26; Admin Dose 50 MG; Start 11/04/18 at 19:00 Patient Own Medication 1 ea HS PO ; Start 11/07/18 at 21:00; Status UNV Hydrocortisone (Hydrocortisone 1% Cr) 1 applic BID PRN TOP ITCHING Last adm inistered on 11/08/18 09:26; Admin Dose 1 APPLIC; Start 11/07/18 at 14:00 LEONIE QUESADA MD Nov 08, 2018 12:03
[2018-11-08 14:00] VITALS: BP 134/70; PULSE 78; RESP 18
[2018-11-08] MEDS ORDERED: FLUOCINONIDE 0.05%/EMOLL 15 GM CR TOP SCH (14:30)
[2018-11-08] MEDS: CLINDAMYCIN 1% 30 ML BTL TOP SCH ×2 (16:40→20:28)
[2018-11-08] MEDS: FLUOCINONIDE 0.05% 15 GM CR TOP SCH ×2 (16:57→20:28)
[2018-11-08 20:00] VITALS: BP 123/72; PULSE 69; RESP 18
[2018-11-08] MEDS: TAMSULOSIN (SR) 0.4 MG CAP PO SCH (20:27)
[2018-11-08] MEDS: SENNA TAB PO SCH (20:27)
[2018-11-09] MEDS: traMADol 50 MG TAB PO PRN ×2 (00:53→08:56)
[2018-11-09 02:00] VITALS: BP 127/71; PULSE 60; RESP 18
[2018-11-09 07:00] VITALS: BP 116/80; PULSE 74; RESP 18
[2018-11-09] MEDS: FAMOTIDINE 20 MG TAB PO SCH ×2 (08:56→21:17)
[2018-11-09] MEDS: DOCUSATE SODIUM 100 MG CAP PO SCH ×2 (08:56→21:16)
[2018-11-09] MEDS: BENAZEPRIL 40 MG TAB PO SCH (08:57)
[2018-11-09] MEDS: AMLODIPINE 5 MG TAB PO SCH (08:57)
[2018-11-09] MEDS: BUPROPION (XL) 150 MG TAB PO SCH (08:57)
[2018-11-09] MEDS: POLYETHYLENE GLYCOL 17 GM PACKET PO SCH (08:58)
[2018-11-09] MEDS: FEBUXOSTAT 40 MG TABLET PO SCH (08:58)
--- NOTE | 2018-11-09 08:58 | CONS ---
Assessment/Plan Assessment/Plan Hospital Course (Demo Recall) 68yo M with hx of HLD, HTN who is now post-op C-spine surgery with radiculopathy upper extremities and myelopathy. - Continue rehabilitation. He is making good progress. He is up walking without assistance and without walker. -He is doing well and is anticipating possibly going home in 2 days. Consultation Date/Type/Reason Admit Date/Time Nov 01, 2018 at 15:30 Initial Consult Date Type of Consult medicine Date/Time of Note DATE: 11/09/18 TIME: 08:54 24 HR Interval Summary Free Text/Dictation Atul is being seen on the acute rehabilitation unit. He is postop a cervical spine surgery for cervical spine myelopathy. He is improving. Constitutional: no complaints, improved Exam/Review of Systems Exam Vitals Vital Signs Date Temp Pulse Resp B/P (MAP) Pulse Ox O2 O2 Flow FiO2 Time Delivery Rate 11/09/18 97.9 74 18 116/80 99 Room Air 07:00 (92) Intake and Output 11/08/18 11/08/18 11/09/18 1515:00 23:00 07:00 IntakeIntake Total 1600 ml OutputOutput Total 800 ml BalanceBalance 800 ml Constitutional: alert, oriented, well developed Neck: supple, non-tender Respiratory: clear to auscultation, normal air movement Cardiovascular: regular rate and rhythm Gastrointestinal: soft, non-tender Musculoskeletal: nl extremities to inspection, muscle weakness Medications Medication Current Medications Docusate Sodium (Colace) 100 mg BID PO Last administered on 11/08/18at 20:27; Admin Dose 100 MG; Start 11/01/18 at 21:00 Senna (Senokot) 1 tab HS PO Last administered on 11/06/18at 20:30; Admin Dose 1 TAB; Start 11/01/18 at 21:00 Magnesium Hydroxide (Milk Of Mag) 30 ml BID PRN PO CONSTIPATION Last adm inistered on 11/07/18at 16:57; Admin Dose 30 ML; Start 11/01/18 at 16:00 Lactulose (Enulose) 20 gm DAILY PRN PO CONSTIPATION Last administered on 11/05/18at 06:32; Admin Dose 20 GM; Start 11/01/18 at 16:00 Bisacodyl (Dulcolax Supp) 10 mg DAILY PRN [place] CONSTIPATION; Start 11/01/18 at 16:00 Acetaminophen (Tylenol Tab) 650 mg Q4H PRN PO MILD PAIN LEVEL 1-3 Last administered on 11/04/18 10:42; Admin Dose 650 MG; Start 11/01/18 at 16:00 Miscellaneous Information (Pending Santyl Order For Wound Care) This patient kramer... PRN PRN XX WOUND CARE; Start 11/01/18 at 16:00 Acetaminophen/ Hydrocodone Bitart ([place] (10/325)) 1 tab Q4H PRN PO MODERATE PAIN LEVEL 4-6; Start 11/01/18 at 16:00 Acetaminophen/ Hydrocodone Bitart ([place] (10/325)) 2 tab Q4H PRN PO SEVERE PAIN LEVEL 7-10; Start 11/01/18 at 16:00 Amlodipine Besylate (Norvasc) 5 mg DAILY PO Last administered on 11/08/18 09:19; Admin Dose 5 MG; Start 11/02/18 at 09:00 Baclofen (Lioresal) 5 mg TID PRN PO muscle spasm Last administered on 11/02/18 08:22; Admin Dose 5 MG; Start 11/01/18 at 16:00 Benazepril HCl (Lotensin) 40 mg DAILY PO Last administered on 11/08/18 09:18; Admin Dose 40 MG; Start 11/02/18 at 09:00 Bupropion HCl (Wellbutrin Xl) 300 mg DAILY PO Last administered on 11/08/18 09:19; Admin Dose 300 MG; Start 11/02/18 at 09:00 Cyclobenzaprine HCl (Flexeril) 10 mg Q8H PRN PO muscles spasm Last administered on 11/04/18 21:09; Admin Dose 10 MG; Start 11/01/18 at 16:00 Famotidine (Pepcid) 20 mg BID PO Last administered on 11/08/18 20:27; Admin Dose 20 MG; Start 11/01/18 at 21:00 Febuxostat (Uloric) 40 mg DAILY PO Last administered on 11/08/18 09:18; Admin Dose 40 MG; Start 11/02/18 at 09:00 Ondansetron HCl (Zofran Inj) 4 mg Q6H PRN IV NAUSEA AND/OR VOMITING; Start 11/01/18 at 16:00 Polyethylene Glycol (Miralax) 17 gm DAILY PO Last administered on 11/07/18 08:13; Admin Dose 17 GM; Start 11/02/18 at 09:00 Sodium Biphosphate/ Sodium Phosphate (Fleet Enema) 133 ml DAILY PRN [place] CONSTIPATION; Start 11/01/18 at 16:00 Tamsulosin HCl (Flomax) 0.4 mg HS PO Last administered on 11/08/18 20:27; Admin Dose 0.4 MG; Start 11/01/18 at 21:00 Zolpidem Tartrate (Ambien) 5 mg HS PRN PO INSOMNIA Last administered on 11/07/18 21:04; Admin Dose 5 MG; Start 11/01/18 at 16:30 Acetaminophen (Tylenol Tab) 1,000 mg Q4H PRN PO BREAKTHROUGH PAIN Last administered on 11/03/18 18:24; Admin Dose 1,000 MG; Start 11/02/18 at 13:30 Tramadol HCl (Ultram) 50 mg TID PRN PO PAIN LEVEL 6-10 Last administered on 11/09/18 00:53; Admin Dose 50 MG; Start 11/04/18 at 19:00 Patient Own Medication HS PO ; Start 11/07/18 at 21:00; Status UNV Clindamycin Phosphate (Clindamycin 1% [place]) 1 applic BID TOP Last administered on 11/08/18 20:28; Admin Dose 1 APPLIC; Start 11/08/18 at 14:30 Fluocinonide (Lidex 0.05% Cr) 1 applic BID TOP Last administered on 11/08/18 20:28; Admin Dose 1 APPLIC; Start 11/08/18 at 16:55 MANFRED MOTLEY MD Nov 09, 2018 08:58
[2018-11-09] MEDS: CLINDAMYCIN 1% 30 ML BTL TOP SCH ×2 (09:00→21:19)
[2018-11-09] MEDS: FLUOCINONIDE 0.05% 15 GM CR TOP SCH ×2 (09:00→21:19)
[2018-11-09 14:00] VITALS: BP 120/70; PULSE 70; RESP 18
--- NOTE | 2018-11-09 16:41 | PN ---
Date/Time of Note Date/Time of Note DATE: 11/09/18 TIME: 16:39 Subjective Patient feeling better Objective Vital Signs Date Temp Pulse Resp B/P (MAP) Pulse Ox O2 O2 Flow FiO2 Time Delivery Rate 11/09/18 97.9 70 18 120/70 99 Room Air 14:00 (87) Intake and Output 11/08/18 11/08/18 11/09/18 1515:00 23:00 07:00 IntakeIntake Total 1600 ml OutputOutput Total 800 ml BalanceBalance 800 ml Exam Independent transfers Independent ambulation Results/Medications Medications Current Medications Docusate Sodium (Colace) 100 mg BID PO Last administered on 11/09/18 08:56; Admin Dose 100 MG; Start 11/01/18 at 21:00 Senna (Senokot) 1 tab HS PO Last administered on 11/06/18at 20:30; Admin Dose 1 TAB; Start 11/01/18 at 21:00 Magnesium Hydroxide (Milk Of Mag) 30 ml BID PRN PO CONSTIPATION Last administered on 11/07/18at 16:57; Admin Dose 30 ML; Start 11/01/18 at 16:00 Lactulose (Enulose) 20 gm DAILY PRN PO CONSTIPATION Last administered on 06:32; Admin Dose 20 GM; Start 11/01/18 at 16:00 Bisacodyl (Dulcolax Supp) 10 mg DAILY PRN [place] CONSTIPATION; Start 11/01/18 at 16:00 Acetaminophen (Tylenol Tab) 650 mg Q4H PRN PO MILD PAIN LEVEL 1-3 Last administered on 11/04/18at 10:42; Admin Dose 650 MG; Start 11/01/18 at 16:00 Miscellaneous Information (Pending Santyl Order For Wound Care) This patient kramer... PRN PRN XX WOUND CARE; Start 11/01/18 at 16:00 Acetaminophen/ Hydrocodone Bitart ([place] (10/325)) 1 tab Q4H PRN PO MODERATE PAIN LEVEL 4-6; Start 11/01/18 at 16:00 Acetaminophen/ Hydrocodone Bitart ([place] (10/325)) 2 tab Q4H PRN PO SEVERE PAIN LEVEL 7-10; Start 11/01/18 at 16:00 Amlodipine Besylate (Norvasc) 5 mg DAILY PO Last administered on 11/09/18 08:57; Admin Dose 5 MG; Start 11/02/18 at 09:00 Baclofen (Lioresal) 5 mg TID PRN PO muscle spasm Last administered on 11/02/18 08:22; Admin Dose 5 MG; Start 11/01/18 at 16:00 Benazepril HCl (Lotensin) 40 mg DAILY PO Last administered on 11/09/18 08:57; Admin Dose 40 MG; Start 11/02/18 at 09:00 Bupropion HCl (Wellbutrin Xl) 300 mg DAILY PO Last administered on 11/09/18 08:57; Admin Dose 300 MG; Start 11/02/18 at 09:00 Cyclobenzaprine HCl (Flexeril) 10 mg Q8H PRN PO muscles spasm Last administered on 11/04/18 21:09; Admin Dose 10 MG; Start 11/01/18 at 16:00 Famotidine (Pepcid) 20 mg BID PO Last administered on 11/09/18 08:56; Admin Dose 20 MG; Start 11/01/18 at 21:00 Febuxostat (Uloric) 40 mg DAILY PO Last administered on 11/09/18 08:58; Admin Dose 40 MG; Start 11/02/18 at 09:00 Ondansetron HCl (Zofran Inj) 4 mg Q6H PRN IV NAUSEA AND/OR VOMITING; Start 11/01/18 at 16:00 Polyethylene Glycol (Miralax) 17 gm DAILY PO Last administered on 11/09/18 08:58; Admin Dose 17 GM; Start 11/02/18 at 09:00 Sodium Biphosphate/ Sodium Phosphate (Fleet Enema) 133 ml DAILY PRN [place] CONSTIPATION; Start 11/01/18 at 16:00 Tamsulosin HCl (Flomax) 0.4 mg HS PO Last administered on 11/08/18 20:27; Admin Dose 0.4 MG; Start 11/01/18 at 21:00 Zolpidem Tartrate (Ambien) 5 mg HS PRN PO INSOMNIA Last administered on 11/07/18 21:04; Admin Dose 5 MG; Start 11/01/18 at 16:30 Acetaminophen (Tylenol Tab) 1,000 mg Q4H PRN PO BREAKTHROUGH PAIN Last administered on 7/23/19at 18:24; Admin Dose 1,000 MG; Start 11/02/18 at 13:30 Tramadol HCl (Ultram) 50 mg TID PRN PO PAIN LEVEL 6-10 Last administered on 11/09/18at 08:56; Admin Dose 50 MG; Start 11/04/18 at 19:00 Patient Own Medication HS PO ; Start 11/07/18 at 21:00; Status UNV Clindamycin Phosphate (Clindamycin 1% [place]) 1 applic BID TOP Last administered on 11/09/18at 09:00; Admin Dose 1 APPLIC; Start 11/08/18 at 14:30 Fluocinonide (Lidex 0.05% Cr) 1 applic BID TOP Last administered on 11/09/18at 09:00; Admin Dose 1 APPLIC; Start 11/08/18 at 16:55 Celecoxib (Celebrex) 100 mg BID PO ; Start 11/09/18 at 21:00 Assessment/Plan Additional Assessment/Plan Rehab- Cervical myelopathy with cord compression, status post cervical laminectomy. Excellent progress. Working towards pr home Friday Acute pain syndrome- doing well on minimal pain meds, start NSAID Constipation- results with bowel program Hypertension. History of gout. Depression ERWIN KWOK MD Nov 09, 2018 16:41
[2018-11-09 20:00] VITALS: BP 117/64; PULSE 66; RESP 18
[2018-11-09] MEDS: CELECOXIB 100 MG CAP PO SCH (21:16)
[2018-11-09] MEDS: TAMSULOSIN (SR) 0.4 MG CAP PO SCH (21:17)
[2018-11-09] MEDS: SENNA TAB PO SCH (21:17)
[2018-11-09] MEDS: ZOLPIDEM 5 MG TAB PO PRN (21:26)
[2018-11-10 07:30] VITALS: BP 136/79; PULSE 52
--- NOTE | 2018-11-10 09:04 | CONS ---
Assessment/Plan Assessment/Plan Hospital Course (Demo Recall) 68yo M with hx of HLD, HTN who is now post-op C-spine surgery with radiculopathy upper extremities and myelopathy. - Continue rehabilitation. He is making good progress. He is up walking without assistance and without walker. -He is doing well and is anticipating going home tomorrow. Consultation Date/Type/Reason Admit Date/Time Nov 01, 2018 at 15:30 Initial Consult Date Type of Consult medicine Date/Time of Note DATE: 11/10/18 TIME: 09:02 24 HR Interval Summary Free Text/Dictation Wenceslao is sitting up in the dining room drinking a cup of coffee. He feels well. He is regaining strength in his arms and is walking more. He says that his gait is still a little "wobbly" but doing better. Constitutional: no complaints, improved Exam/Review of Systems Exam Vitals Vital Signs Date Temp Pulse Resp B/P (MAP) Pulse Ox O2 O2 Flow FiO2 Time Delivery Rate 11/09/18 98.1 66 18 117/64 97 20:00 (81) 11/09/18 Room Air 14:00 Intake and Output 11/09/18 11/09/18 11/10/18 1515:00 23:00 07:00 IntakeIntake Total 1200 ml 320 ml OutputOutput Total 600 ml BalanceBalance 600 ml 320 ml Constitutional: alert, oriented, well developed Respiratory: clear to auscultation, normal air movement Cardiovascular: regular rate and rhythm Gastrointestinal: soft Musculoskeletal: nl extremities to inspection Medications Medication Current Medications Docusate Sodium (Colace) 100 mg BID PO Last administered on 11/09/18at 21:16; Admin Dose 100 MG; Start 11/01/18 at 21:00 Senna (Senokot) 1 tab HS PO Last administered on 11/09/18at 21:17; Admin Dose 1 TAB; Start 11/01/18 at 21:00 Magnesium Hydroxide (Milk Of Mag) 30 ml BID PRN PO CONSTIPATION Last administered on 11/07/18at 16:57; Admin Dose 30 ML; Start 11/01/18 at 16:00 Lactulose (Enulose) 20 gm DAILY PRN PO CONSTIPATION Last administered on 11/05/18at 06:32; Admin Dose 20 GM; Start 11/01/18 at 16:00 Bisacodyl (Dulcolax Supp) 10 mg DAILY PRN [place] CONSTIPATION; Start 11/01/18 at 16:00 Acetaminophen (Tylenol Tab) 650 mg Q4H PRN PO MILD PAIN LEVEL 1-3 Last administ ered on 11/04/18at 10:42; Admin Dose 650 MG; Start 11/01/18 at 16:00 Miscellaneous Information (Pending Santyl Order For Wound Care) This patient kramer... PRN PRN XX WOUND CARE; Start 11/01/18 at 16:00 Acetaminophen/ Hydrocodone Bitart ([place] (10/325)) 1 tab Q4H PRN PO MODERATE PAIN LEVEL 4-6; Start 11/01/18 at 16:00 Acetaminophen/ Hydrocodone Bitart ([place] (10/325)) 2 tab Q4H PRN PO SEVERE PAIN LEVEL 7-10; Start 11/01/18 at 16:00 Amlodipine Besylate (Norvasc) 5 mg DAILY PO Last administered on 11/09/18 08 :57; Admin Dose 5 MG; Start 11/02/18 at 09:00 Baclofen (Lioresal) 5 mg TID PRN PO muscle spasm Last administered on 11/02/18 08:22; Admin Dose 5 MG; Start 11/01/18 at 16:00 Benazepril HCl (Lotensin) 40 mg DAILY PO Last administered on 11/09/18 08:57; Admin Dose 40 MG; Start 11/02/18 at 09:00 Bupropion HCl (Wellbutrin Xl) 300 mg DAILY PO Last administered on 11/09/18 08:57; Admin Dose 300 MG; Start 11/02/18 at 09:00 Cyclobenzaprine HCl (Flexeril) 10 mg Q8H PRN PO muscles spasm Last administered on 11/04/18 21:09; Admin Dose 10 MG; Start 11/01/18 at 16:00 Famotidine (Pepcid) 20 mg BID PO Last administered on 11/09/18 21:17; Admin Dose 20 MG; Start 11/01/18 at 21:00 Febuxostat (Uloric) 40 mg DAILY PO Last administered on 11/09/18 08:58; Admin Dose 40 MG; Start 11/02/18 at 09:00 Ondansetron HCl (Zofran Inj) 4 mg Q6H PRN IV NAUSEA AND/OR VOMITING; Start 11/01/18 at 16:00 Polyethylene Glycol (Miralax) 17 gm DAILY PO Last administered on 11/09/18 08:58; Admin Dose 17 GM; Start 11/02/18 at 09:00 Sodium Biphosphate/ Sodium Phosphate (Fleet Enema) 133 ml DAILY PRN [place] CONSTIPATION; Start 11/01/18 at 16:00 Tamsulosin HCl (Flomax) 0.4 mg HS PO Last administered on 11/09/18 21:17; Admin Dose 0.4 MG; Start 11/01/18 at 21:00 Zolpidem Tartrate (Ambien) 5 mg HS PRN PO INSOMNIA Last administered on 11/09/18 21:26; Admin Dose 5 MG; Start 11/01/18 at 16:30 Acetaminophen (Tylenol Tab) 1,000 mg Q4H PRN PO BREAKTHROUGH PAIN Last administered on 11/03/18 18:24; Admin Dose 1,000 MG; Start 11/02/18 at 13:30 Tramadol HCl (Ultram) 50 mg TID PRN PO PAIN LEVEL 6-10 Last administered on 11/09/18 08:56; Admin Dose 50 MG; Start 11/04/18 at 19:00 Patient Own Medication HS PO ; Start 11/07/18 at 21:00; Status UNV Clindamycin Phosphate (Clindamycin 1% [place]) 1 applic BID TOP Last administered on 11/09/18 21:19; Admin Dose 1 APPLIC; Start 11/08/18 at 14:30 Fluocinonide (Lidex 0.05% Cr) 1 applic BID TOP Last administered on 11/09/18 21:19; Admin Dose 1 APPLIC; Start 11/08/18 at 16:55 Celecoxib (Celebrex) 100 mg BID PO Last administered on 11/09/18 21:16; Admin Dose 100 MG; Start 11/09/18 at 21:00 MANFRED MOTLEY MD Nov 10, 2018 09:04
[2018-11-10] MEDS: CELECOXIB 100 MG CAP PO SCH ×2 (09:16→21:17)
[2018-11-10] MEDS: BUPROPION (XL) 150 MG TAB PO SCH (09:16)
[2018-11-10] MEDS: FEBUXOSTAT 40 MG TABLET PO SCH (09:17)
[2018-11-10] MEDS: FAMOTIDINE 20 MG TAB PO SCH ×2 (09:17→21:17)
[2018-11-10] MEDS: AMLODIPINE 5 MG TAB PO SCH (09:17)
[2018-11-10] MEDS: DOCUSATE SODIUM 100 MG CAP PO SCH ×2 (09:17→21:17)
[2018-11-10] MEDS: BENAZEPRIL 40 MG TAB PO SCH (09:18)
[2018-11-10] MEDS: POLYETHYLENE GLYCOL 17 GM PACKET PO SCH (09:18)
[2018-11-10] MEDS: CLINDAMYCIN 1% 30 ML BTL TOP SCH ×2 (09:25→21:18)
[2018-11-10] MEDS: FLUOCINONIDE 0.05% 15 GM CR TOP SCH ×2 (09:26→21:19)
[2018-11-10 14:00] VITALS: BP 117/67; PULSE 73; RESP 20
[2018-11-10] MEDS: LACTULOSE 30ML CUP PO PRN (14:44)
--- NOTE | 2018-11-10 16:21 | PN ---
Date/Time of Note Date/Time of Note DATE: 11/10/18 TIME: 16:20 Subjective Much better Objective Vital Signs Date Temp Pulse Resp B/P (MAP) Pulse Ox O2 O2 Flow FiO2 Time Delivery Rate 11/10/18 97.7 52 136/79 97 High Flow 07:30 (98) 11/09/18 18 20:00 Intake and Output 11/09/18 11/09/18 11/10/18 1515:00 23:00 07:00 IntakeIntake Total 1200 ml 320 ml OutputOutput Total 600 ml BalanceBalance 600 ml 320 ml Exam I transfers I ambulation I stairs Results/Medications Medications Current Medications Docusate Sodium (Colace) 100 mg BID PO Last administered on 11/10/18at 09:17; Admin Dose 100 MG; Start 11/01/18 at 21:00 Senna (Senokot) 1 tab HS PO Last administered on 11/09/18at 21:17; Admin Dose 1 TAB; Start 11/01/18 at 21:00 Magnesium Hydroxide (Milk Of Mag) 30 ml BID PRN PO CONSTIPATION Last adminis tered on 11/07/18at 16:57; Admin Dose 30 ML; Start 11/01/18 at 16:00 Lactulose (Enulose) 20 gm DAILY PRN PO CONSTIPATION Last administered on 11/10/18at 14:44; Admin Dose 20 GM; Start 11/01/18 at 16:00 Bisacodyl (Dulcolax Supp) 10 mg DAILY PRN [place] CONSTIPATION; Start 11/01/18 at 16:00 Acetaminophen (Tylenol Tab) 650 mg Q4H PRN PO MILD PAIN LEVEL 1-3 Last administered on 11/04/18at 10:42; Admin Dose 650 MG; Start 11/01/18 at 16:00 Miscellaneous Information (Pending Santyl Order For Wound Care) This patient kramer ... PRN PRN XX WOUND CARE; Start 11/01/18 at 16:00 Acetaminophen/ Hydrocodone Bitart ([place] (10/325)) 1 tab Q4H PRN PO MODERATE PAIN LEVEL 4-6; Start 11/01/18 at 16:00 Acetaminophen/ Hydrocodone Bitart ([place] (10/325)) 2 tab Q4H PRN PO SEVERE PAIN LEVEL 7-10; Start 11/01/18 at 16:00 Amlodipine Besylate (Norvasc) 5 mg DAILY PO Last administered on 11/10/18 09:17; Admin Dose 5 MG; Start 11/02/18 at 09:00 Baclofen (Lioresal) 5 mg TID PRN PO muscle spasm Last administered on 11/02/18 08:22; Admin Dose 5 MG; Start 11/01/18 at 16:00 Benazepril HCl (Lotensin) 40 mg DAILY PO Last administered on 11/10/18 09:18; Admin Dose 40 MG; Start 11/02/18 at 09:00 Bupropion HCl (Wellbutrin Xl) 300 mg DAILY PO Last administered on 11/10/18 09:16; Admin Dose 300 MG; Start 11/02/18 at 09:00 Cyclobenzaprine HCl (Flexeril) 10 mg Q8H PRN PO muscles spasm Last administered on 11/04/18 21:09; Admin Dose 10 MG; Start 11/01/18 at 16:00 Famotidine (Pepcid) 20 mg BID PO Last administered on 11/10/18 09:17; Admin Dose 20 MG; Start 11/01/18 at 21:00 Febuxostat (Uloric) 40 mg DAILY PO Last administered on 11/10/18 09:17; Admin Dose 40 MG; Start 11/02/18 at 09:00 Ondansetron HCl (Zofran Inj) 4 mg Q6H PRN IV NAUSEA AND/OR VOMITING; Start 11/01/18 at 16:00 Polyethylene Glycol (Miralax) 17 gm DAILY PO Last administered on 11/10/18 09:18; Admin Dose 17 GM; Start 11/02/18 at 09:00 Sodium Biphosphate/ Sodium Phosphate (Fleet Enema) 133 ml DAILY PRN [place] CONSTIPATION; Start 11/01/18 at 16:00 Tamsulosin HCl (Flomax) 0.4 mg HS PO Last administered on 11/09/18 21:17; Admin Dose 0.4 MG; Start 11/01/18 at 21:00 Zolpidem Tartrate (Ambien) 5 mg HS PRN PO INSOMNIA Last administered on 11/09/18 21:26; Admin Dose 5 MG; Start 11/01/18 at 16:30 Acetaminophen (Tylenol Tab) 1,000 mg Q4H PRN PO BREAKTHROUGH PAIN Last administered on 11/03/18 18:24; Admin Dose 1,000 MG; Start 11/02/18 at 13:30 Tramadol HCl (Ultram) 50 mg TID PRN PO PAIN LEVEL 6-10 Last administered on 11/09/18 08:56; Admin Dose 50 MG; Start 11/04/18 at 19:00 Patient Own Medication HS PO ; Start 11/07/18 at 21:00; Status UNV Clindamycin Phosphate (Clindamycin 1% [place]) 1 applic BID TOP Last administered on 11/10/18 09:25; Admin Dose 1 APPLIC; Start 11/08/18 at 14:30 Fluocinonide (Lidex 0.05% Cr) 1 applic BID TOP Last administered on 11/10/18 09:26; Admin Dose 1 APPLIC; Start 11/08/18 at 16:55 Celecoxib (Celebrex) 100 mg BID PO Last administered on 11/10/18 09:16; Admin Dose 100 MG; Start 11/09/18 at 21:00 Assessment/Plan Additional Assessment/Plan Rehab- Cervical myelopathy with cord compression, status post cervical laminectomy. dc home tomorrow Acute pain syndrome- NSAID working well Constipation- continue bowel program Hypertension. History of gout. Depression- affect much brighter, patient motivated for discharge ERWIN KWOK MD Nov 10, 2018 16:21
[2018-11-10 20:27] VITALS: BP 144/75; PULSE 75; RESP 20
[2018-11-10] MEDS: SENNA TAB PO SCH (21:00)
[2018-11-10] MEDS: TAMSULOSIN (SR) 0.4 MG CAP PO SCH (21:17)
[2018-11-10] MEDS: ZOLPIDEM 5 MG TAB PO PRN (21:20)
[2018-11-11 07:30] VITALS: BP 115/72; PULSE 61; RESP 18
[2018-11-11] MEDS: POLYETHYLENE GLYCOL 17 GM PACKET PO SCH (08:48)
[2018-11-11] MEDS: BUPROPION (XL) 150 MG TAB PO SCH (08:49)
[2018-11-11] MEDS: FEBUXOSTAT 40 MG TABLET PO SCH (08:49)
[2018-11-11] MEDS: CLINDAMYCIN 1% 30 ML BTL TOP SCH (08:49)
[2018-11-11] MEDS: FLUOCINONIDE 0.05% 15 GM CR TOP SCH (08:49)
[2018-11-11] MEDS: CELECOXIB 100 MG CAP PO SCH (08:50)
[2018-11-11] MEDS: AMLODIPINE 5 MG TAB PO SCH (08:50)
[2018-11-11] MEDS: DOCUSATE SODIUM 100 MG CAP PO SCH (08:50)
[2018-11-11] MEDS: ACETAMINOPHEN 500 MG TAB PO PRN (08:51)
[2018-11-11] MEDS: BENAZEPRIL 40 MG TAB PO SCH (08:51)
[2018-11-11] MEDS: FAMOTIDINE 20 MG TAB PO SCH (08:52)
--- NOTE | 2018-11-11 08:54 | CONS ---
Assessment/Plan Assessment/Plan Assessment/Plan (Daily) 1. Post op cx laminectomy with both radicular and myelopathic sx which have improved 2. BP is controlled 3. Mild renal insuff, will recheck labs prior to dc Consultation Date/Type/Reason Admit Date/Time Nov 01, 2018 at 15:30 Initial Consult Date Date/Time of Note DATE: 11/11/18 TIME: 08:52 Detailed Summary Respiratory: No cough, No shortness of breath Cardiovascular: No chest pain Gastrointestinal: No no complaints Genitourinary: no complaints Musculoskeletal: neck pain (is less) Neurologic: other (arm strength and leg strength has improved as has his balance) Exam/Review of Systems Exam Vitals Vital Signs Date Temp Pulse Resp B/P (MAP) Pulse Ox O2 O2 Flow FiO2 Time Delivery Rate 11/11/18 97.5 61 18 115/72 97 Room Air 07:30 (86) Intake and Output 11/10/18 11/10/18 11/11/18 1515:00 23:00 07:00 IntakeIntake Total 1350 ml 920 ml BalanceBalance 1350 ml 920 ml Neck: No jvd Respiratory: clear to auscultation Cardiovascular: regular rate and rhythm Gastrointestinal: soft Extremities: No edema Neurological: other (uppe extrem strenght has improved) Medications Medication Current Medications Docusate Sodium (Colace) 100 mg BID PO Last administered on 11/10/18at 21:17; Admin Dose 100 MG; Start 11/01/18 at 21:00 Senna (Senokot) 1 tab HS PO Last administered on 11/09/18 21:17; Admin Dose 1 TAB; Start 11/01/18 at 21:00 Magnesium Hydroxide (Milk Of Mag) 30 ml BID PRN PO CONSTIPATION Last administered on 11/07/18 16:57; Admin Dose 30 ML; Start 11/01/18 at 16:00 Lactulose (Enulose) 20 gm DAILY PRN PO CONSTIPATION Last administered on 11/10/18at 14:44; Admin Dose 20 GM; Start 11/01/18 at 16:00 Bisacodyl (Dulcolax Supp) 10 mg DAILY PRN [place] CONSTIPATION; Start 11/01/18 at 16:00 Acetaminophen (Tylenol Tab) 650 mg Q4H PRN PO MILD PAIN LEVEL 1-3 Last administered on 11/04/18 10:42; Admin Dose 650 MG; Start 11/01/18 at 16:00 Miscellaneous Information (Pending Santyl Order For Wound Care) This patient kramer... PRN PRN XX WOUND CARE; Start 11/01/18 at 16:00 Acetaminophen/ Hydrocodone Bitart ([place] (10/325)) 1 tab Q4H PRN PO MODERATE PAIN LEVEL 4-6; Start 11/01/18 at 16:00 Acetaminophen/ Hydrocodone Bitart ([place] (10/325)) 2 tab Q4H PRN PO SEVERE PAIN LEVEL 7-10; Start 11/01/18 at 16:00 Amlodipine Besylate (Norvasc) 5 mg DAILY PO Last administered on 11/10/18 09:17; Admin Dose 5 MG; Start 11/02/18 at 09:00 Baclofen (Lioresal) 5 mg TID PRN PO muscle spasm Last administered on 11/02/18 08:22; Admin Dose 5 MG; Start 11/01/18 at 16:00 Benazepril HCl (Lotensin) 40 mg DAILY PO Last administered on 11/10/18 09:18; Admin Dose 40 MG; Start 11/02/18 at 09:00 Bupropion HCl (Wellbutrin Xl) 300 mg DAILY PO Last administered on 11/10/18 09:16; Admin Dose 300 MG; Start 11/02/18 at 09:00 Cyclobenzaprine HCl (Flexeril) 10 mg Q8H PRN PO muscles spasm Last administered on 11/04/18 21:09; Admin Dose 10 MG; Start 11/01/18 at 16:00 Famotidine (Pepcid) 20 mg BID PO Last administered on 11/10/18 21:17; Admin Dose 20 MG; Start 11/01/18 at 21:00 Febuxostat (Uloric) 40 mg DAILY PO Last administered on 11/10/18 09:17; Admin Dose 40 MG; Start 11/02/18 at 09:00 Ondansetron HCl (Zofran Inj) 4 mg Q6H PRN IV NAUSEA AND/OR VOMITING; Start 11/01/18 at 16:00 Polyethylene Glycol (Miralax) 17 gm DAILY PO Last administered on 11/10/18 09:18; Admin Dose 17 GM; Start 11/02/18 at 09:00 Sodium Biphosphate/ Sodium Phosphate (Fleet Enema) 133 ml DAILY PRN [place] CONSTIPATION; Start 11/01/18 at 16:00 Tamsulosin HCl (Flomax) 0.4 mg HS PO Last administered on 11/10/18 21:17; Admin Dose 0.4 MG; Start 11/01/18 at 21:00 Zolpidem Tartrate (Ambien) 5 mg HS PRN PO INSOMNIA Last administered on 21:20; Admin Dose 5 MG; Start 11/01/18 at 16:30 Acetaminophen (Tylenol Tab) 1,000 mg Q4H PRN PO BREAKTHROUGH PAIN Last adm inistered on 11/03/18 18:24; Admin Dose 1,000 MG; Start 11/02/18 at 13:30 Tramadol HCl (Ultram) 50 mg TID PRN PO PAIN LEVEL 6-10 Last administered on 11/09/18 08:56; Admin Dose 50 MG; Start 11/04/18 at 19:00 Patient Own Medication HS PO ; Start 11/07/18 at 21:00; Status UNV Clindamycin Phosphate (Clindamycin 1% [place]) 1 applic BID TOP Last administered on 11/10/18 21:18; Admin Dose 1 APPLIC; Start 11/08/18 at 14:30 Fluocinonide (Lidex 0.05% Cr) 1 applic BID TOP Last administered on 11/10/18 21:19; Admin Dose 1 APPLIC; Start 11/08/18 at 16:55 Celecoxib (Celebrex) 100 mg BID PO Last administered on 11/10/18 21:17; Admin Dose 100 MG; Start 11/09/18 at 21:00 VANDANA KESSLER MD Nov 11, 2018 08:54
--- NOTE | 2018-11-11 13:40 | DS ---
Date/Time of Note Date/Time of Note DATE: 11/11/18 TIME: 13:39 Discharge Summary Admission/Discharge Info Admit Date/Time Nov 01, 2018 at 15:30 Discharge Date/Time Discharge Diagnosis 1. Cervical myelopathy with cord compression, status post cervical laminectomy. 2. Acute pain syndrome, improved 3. Hypertension. 4. History of gout. 5. Depression, improved 6. Improvements in self-care and mobility. Patient Condition: Good Hospital Course The patient was admitted for comprehensive interdisciplinary rehabilitation and made steady functional gains from a Mod/Min level to an independent level for self care tasks and mobility including ambulating over 200 feet without assistive device. Patient is being discharged home with the recommendation of home health PT, OT follow up. The DC meds are per the medication reconciliation sheet. The discharge equipment recommendations include: BSC, shower chair. The patient will follow up with PMD and surgeon upon DC. Home Meds Reported Medications Bupropion Hcl* (Wellbutrin XL*) 300 Mg Tab.sr.24h, 300 MG PO DAILY, TAB.SA 10/26/18 Famotidine* (Famotidine*) 20 Mg Tablet, 20 MG PO BID, #60 TAB 10/26/18 Febuxostat* (Uloric*) 40 Mg Tablet, 40 MG PO DAILY, TAB 10/26/18 Rosuvastatin Calcium* (Crestor*) 20 Mg Tablet, 20 MG PO QHS, #30 TAB 10/26/18 Amlodipine Besylate/Benazepril (Lotrel 5-40 mg Capsule) 1 Each Capsule, 1 EACH PO QPM, CAP 10/26/18 Primary Care Provider Not On Staff Doctor Pending Labs Laboratory Tests Test 11/11/18 09:07 White Blood Count 7.2 10^3/ul (4.8-10.8) Red Blood Count 5.20 10^6/ul (4.70-6.10) Hemoglobin 15.7 g/dl (14.0-18.0) Hematocrit 46.2 % (42.0-52.0) Mean Corpuscular Volume 88.8 fl (82.0-101.0) Mean Corpuscular Hemoglobin 30.2 pg (29.0-33.0) Mean Corpuscular Hemoglobin Concent 34.0 g/dl (32.0-37.0) Red Cell Distribution Width 12.2 % (11.5-14.5) Platelet Count 284 10^3/UL (140-415) Mean Platelet Volume 9.1 fl (7.4-10.4) Immature Granulocytes % 0.600 % (0.001-0.429) Neutrophils % 75.5 % (39.0-77.0) Lymphocytes % 14.9 % (15.0-51.0) Monocytes % 7.0 % (0.0-11.0) Eosinophils % 1.7 % (0.0-7.0) Basophils % 0.3 % (0.0-2.0) Nucleated Red Blood Cells % 0.0 /100WBC (0.0-0.0) Immature Granulocytes # 0.040 10^3/ul (0.0-0.031) Neutrophils # 5.4 10^3/ul (1.6-7.5) Lymphocytes # 1.1 10^3/ul (0.8-2.9) Monocytes # 0.5 10^3/ul (0.3-0.9) Eosinophils # 0.1 10^3/ul (0.0-0.5) Basophils # 0.0 10^3/ul (0.0-0.1) Nucleated Red Blood Cells # 0.0 10^3/ul (0.0-0.0) Sodium Level 137 mmol/L (135-144) Potassium Level 4.7 mmol/L (3.5-5.1) Chloride Level 103 mmol/L (97-110) Carbon Dioxide Level 24 mmol/L (21-31) Anion Gap 10 (5-13) Blood Urea Nitrogen 24 mg/dl (7-20) Creatinine 1.41 mg/dl (0.61-1.24) Est Glomerular Filtrat Rate mL/min 50 mL/min (>60) Glucose Level 149 mg/dl (70-220) Calcium Level 9.2 mg/dl (8.4-10.2) ERWIN KWOK MD Nov 11, 2018 13:40
== END 2018-11-11 11:00 | disposition home health service (06) | DRG 945 ==
LOC: VRC 11-01 15:30
PROVIDERS: ADMIT Physical Medicine & Rehabilitation; ATTEND Internal Medicine
PROC: F07Z9FZ Gait Training/Functional Ambulation Treatment using Assistive, Adaptive, Supportive or Protective Equipment (ICD-10-PCS; principal; 2018-11-01)
PROC: F07Z8FZ Transfer Training Treatment using Assistive, Adaptive, Supportive or Protective Equipment (ICD-10-PCS; 2018-11-01)
PROC: F07Z5FZ Bed Mobility Treatment using Assistive, Adaptive, Supportive or Protective Equipment (ICD-10-PCS; 2018-11-01)
PROC: F08Z2FZ Grooming/Personal Hygiene Treatment using Assistive, Adaptive, Supportive or Protective Equipment (ICD-10-PCS; 2018-11-01)
PROC: F08Z0FZ Bathing/Showering Techniques Treatment using Assistive, Adaptive, Supportive or Protective Equipment (ICD-10-PCS; 2018-11-01)
PROC: F08Z1FZ Dressing Techniques Treatment using Assistive, Adaptive, Supportive or Protective Equipment (ICD-10-PCS; 2018-11-01)
DX: G89.18 Other acute postprocedural pain (principal); E87.1 Hypo-osmolality and hyponatremia; F33.9 Major depressive disorder, recurrent, unspecified; E78.5 Hyperlipidemia, unspecified; I10 Essential (primary) hypertension; Z98.890 Other specified postprocedural states; K59.00 Constipation, unspecified; F06.31 Mood disorder due to known physiological condition with depressive features; M10.9 Gout, unspecified
CPT/HCPCS: 72141; 80048; 80053; 81003; 84300; 84443; 84560; 85025; 87081; 87086; 97110; 97112; 97116; 97163; 97530; 97535